=== PATIENT | male | born 1965 | race Two or more races ===

== ENCOUNTER 2023-05-13 08:10 | Inpatient (IN) | payer OTHER, SELFPAY ==
[2023-05-13] VITALS (9 sets, daily range): BP systolic 102–146; BP diastolic 76–119; PULSE 66–158; RESP 18–24; TEMP 36.1–36.3; O2SAT 95–100; BMI 28.4
--- NOTE | 2023-05-13 | ECG_ITS ---
Test Reason : CHEST PAIN Blood Pressure : / mmHG Vent. Rate : 143 BPM Atrial Rate : 000 BPM P-R Int : 000 ms QRS Dur : 084 ms QT Int : 320 ms P-R-T Axes : 000 092 -23 degrees QTc Int : 493 ms Atrial fibrillation with rapid ventricular response Rightward axis Abnormal QRS-T angle, consider primary T wave abnormality Abnormal ECG No previous ECGs available Referred By: Anjelica Hinkle Electronically Signed By:Stanley Perea
--- NOTE | ~2023-05-13 | XR_ITS ---
EXAMINATION: XR CHEST CLINICAL INFORMATION: SOB COMPARISON: None available. TECHNIQUE: Frontal view of the chest was obtained. FINDINGS: The lungs are well-expanded and clear of acute pneumonic process. Heart size is normal. There is mild prominence of pulmonary vascularity question mild congestion. There is moderate spondylosis of dorsal spine. XR/XR chest 1V IMPRESSION: Suspect mild pulmonary vascular congestion.
--- NOTE | 2023-05-13 08:25 | PC.NURSE ---
Addendum entered by Lali Bartlett 05/13/23 09:21: Pt denies any new swelling in legs, no pitting edema noted. Original Note: Pt is coming from home, pt reports chest pains, SOB and cough X2 weeks worsening. Pt reports poor sleep and unable to lay flat at night. Pt does report productive cough with sputum. Denies any fevers, N/V/D, ABD pain. Pt does report daily drinking of beer, 3 beers daily, denies any history of withdrawals. Pt reports CP is substernal, sharp and worsens with breathing, 07/29. Pt denies any resp or cardiac hx. Pt is alert and oriented, breathing slightly elevated and labored, skin dry and warm. Pt noted to be tachycardia, pulse irregular. Pt placed on bedside cardiac montior, afib between 130-170 noted. Provider is at bedside and aware. All other vital signs stable. IV established in right AC 18G and pt medicated per APR.
--- NOTE | 2023-05-13 08:27 | ED.CHESTPAIN ---
HPI - Chest Pain General Chief Complaint: Chest Pain Stated Complaint: Diff breathing Time Seen by Provider: 05/13/23 08:14 Source: patient and family ( spouse) Mode of arrival: ambulatory Limitations: no limitations History of Present Illness HPI narrative: 57-year-old male with past medical history significant for hypertension patient is not taking his medication for the past 10 months, for the past 2 weeks patient been having difficulty breathing with productive cough with yellow sputum, had been evaluated at urgent care last week and was given a coughing medication, patient reports worsening of his symptoms especially at nighttime when he lay flat he had to get quick because of difficulty breathing, patient also been having exertional dyspnea at work especially going up and downstairs, has not notice swelling in the lower extremities. No fever, no chills, no exposure to a sick contact. Never had similar symptoms in the past. Patient is complaining of chest pain that has been intermittent usually when SOB gets worse, pain is confined to the anterior chest area with no radiation worsening by exertion no clear relieving factor. Related Data Allergies Allergy/AdvReac Type Severity Reaction Status Date / Time No Known Allergies Allergy Verified 05/13/23 08:25 Review of Systems Review of Systems: All other systems are reviewed and are negative Constitutional: Reports as per HPI and Reports no additional constitutional complaints Eyes: Reports as per HPI and Reports no additional eye complaints Reports system reviewed and no additional complaints, except as documented Cardiovascular: Reports as per HPI and Reports no additional cardiovascular complaints Respiratory: Reports as per HPI and Reports no additional respiratory complaints Gastrointestinal: Reports as per HPI and Reports no additional gastrointestinal complaints Genitourinary: Reports no additional female genitourinary complaints Musculoskeletal: Reports no additional musculoskeletal complaints Skin/Breast: Reports system reviewed and no additional complaints, except as docu Psychiatric: Reports no additional psychiatric complaints Endocrine: Reports no additional endocrine complaints Hematologic/Lymphatic: Reports no additional hematologic/lymphatic complaints Allergic/Immunologic: Reports no additional allergic/immunologic complaints Reports system reviewed and no additional complaints, except as documented and Reports Abnormal speech present [facility] Social History Social History Smoked in Last 30 Days: No Use of substances other than those prescribed or required for medical reasons: No Advance Directives: No Advance Directives Information Provided: Yes Physical Exam Vital Signs: Vital Signs: Last Vital Signs Temp 96.9 F 05/13/23 08:26 Pulse 90 05/13/23 09:32 Resp 18 05/13/23 09:32 BP 127/86 05/13/23 09:32 Pulse Ox 96 05/13/23 09:32 O2 Del Method Room Air 05/13/23 09:32 BMI result Body Mass Index 28.4 Vital signs have been reviewed and appear to be correct. Blood pressure elevated. rapid heart rate , rapid respiratory rate. Temperature normal. Oxygen saturation normal. Appearance: Alert. Oriented X3. mild acute distress. Head: Normal external exam. Normocephalic. Atraumatic. No Jaramillo signs noted. No raccoon eyes noted Eyes: PERRLA. EOMI. Conjunctiva and sclera normal. Eyelids normal. ENT: TM's Normal. Pharynx normal. Uvula midline. Moist mucous membranes. No trismus noted. No drooling noted. No muffled voice noted. Neck: Normal inspection. Neck supple. FROM. No adenopathy. Thyroid Normal. No meningeal signs. No neck mass noted. CVS: Normal heart rate and rhythm. Heart sound normal. No murmurs noted. Pulses normal throughout. Respiratory: mild respiratory distress. Painless inspiration. Breath sounds normal. bilateral basilar rales, Chest nontender. No accessory muscle usage noted or decreased air movement noted. Abdomen: Soft and nontender. Bowel sounds normal in all 4 quadrants. No distention noted. No organomegaly noted. No visible injury noted. Back: No CVA tenderness. Full range of motion noted. Skin: Skin warm and dry. Normal skin color. Normal skin turgor. No rashes/lesions/lacerations noted. Extremities: No lower extremity edema. Extremities exhibit normal range of motion. Extremities nontender. Neuro: Oriented X 3. Cranial nerve exam: II-XII are grossly intact No motor deficit. No sensory deficit. Reflexes normal. Course Reevaluation(s) Reevaluation #1: 57-year-old male came in with new onset atrial fibrillation with RVR and mild CHF, patient's CHADS2 SCORE IS 2 WHICH IS A MODERATE RISK FOR CVA will consider Eliquis 5 mg p.o.. Patient is on Cardizem drip to control heart rate, nitro paste for mild CHF. Patient overall feels better after rate was controlled. Time: 10:13 Medications Administered Generic Name Dose Route Start Last Admin Trade Name Louis PRN Reason Stop Dose Admin Diltiazem HCl 125 mg/ Sodium 125 mls @ 0 mls/hr 05/13/23 08:45 05/13/23 08:55 Chloride IVCONT 5 mg/hr .Q0M TITI 5 mls/hr Administration Protocol Per Protocol Discontinued Medications Generic Name Dose Route Start Last Admin Trade Name Louis PRN Reason Stop Dose Admin Diltiazem HCl 20 mg 05/13/23 08:31 05/13/23 08:45 Diltiazem Hcl 50 Mg/10 Ml Vial IVPUSH 05/13/23 08:32 20 mg STAT STA Administration Medical Decision Making Differential Diagnosis Differential Diagnoses: The differential diagnosis associated with the presentation includes ( ACS, CHF, dysrhythmia, electrolyte derangement, pneumonia, pneumothorax, pleural effusion, severe anemia, risk for CVA assessment.) Admission/Observation Consideration of admission/observation: Escalation of care including admission/observation considered Consult Healthcare Provider Management of the patient was discussed with: Hospitalist ( Dr. Armando) Lab Data MDM Lab Attestation statement: I reviewed the patient's lab results. 05/13/23 08:40 05/13/23 08:40 Labs: Lab Results 05/13/23 Range/Units 08:40 WBC 5.6 (4.8-10.8) X10*3/uL RBC 5.42 (4.60-5.80) X10*6/uL Hgb 15.8 (14.0-18.0) g/dl Hct 47.0 (42.0-52.0) % MCV 86.7 (80.0-98.0) fL MCH 29.2 (27.0-33.0) pg MCHC 33.6 (31.0-36.0) g/dl RDW 13.3 (11.0-16.0) % Plt Count 205 (160-400) X10*3/uL MPV 11.4 (9.4-12.4) fL Immature Gran % (Auto) 0.4 (0.0-0.4) % Neut % (Auto) 70.9 (45-73) % Lymph % (Auto) 22.4 (20-40) % Whitman % (Auto) 5.0 (2-11) % Eos % (Auto) 0.9 (0-4) % Baso % (Auto) 0.4 (0-2) % Lymph # (Auto) 1.3 (1.2-4.9) X10*3/uL [place]man # (Auto) 0.3 (0.1-1.2) X10*3/uL Eos # (Auto) 0.1 (0.0-0.4) X10*3/uL Baso # (Auto) 0.0 (0.0-0.2) X10*3/uL Abs Immat Gran (auto) 0.02 (0.00-0.03) X10*3/uL Absolute Neuts (auto) 4.0 (2.0-8.3) x10*3/uL Absolute Nucleated RBC 0.000 (0.0-0.012) X10*3/uL Nucleated RBC % (auto) 0.0 (0.0-0.2) /100WBC PT 14.0 H (11.1-13.3) SEC INR 1.2 H (0.9-1.1) D-Dimer High Sensitivty 257 NG/ML Sodium 141 (135-145) mmol/L Potassium 4.0 (3.3-5.1) mmol/L Chloride 109 H (96-108) mmol/L Carbon Dioxide 25 (22-29) mmol/L Anion Gap 11 L (12-20) BUN 15 (9-16) mg/dL Creatinine 0.93 (0.5-1.4) mg/dL Estim Creat Clear Calc 98.0 Estimated GFR > 60 Random Glucose 125 H (60-115) mg/dL Lactic Acid 1.1 (0.5-2.0) mmol/L Calcium 9.3 (8.4-10.2) mg/dL Total Bilirubin 1.1 H (0.0-1.0) mg/dL Direct Bilirubin 0.4 (0.0-0.5) mg/dL AST 51 H (5-37) U/L ALT 78 H (0-40) U/L Alkaline Phosphatase 77 (39-117) U/L Troponin I High Sens 21.0 (<3.5-35.0) ng/L B-Natriuretic Peptide 401 H (<100) pg/mL Total Protein 7.8 (6.5-8.0) g/dL Albumin 4.5 (3.5-5.0) g/dL Lipase 22 (8-78) U/L Influenza Type A (PCR) NEGATIVE (Negative) Influenza Type B (PCR) NEGATIVE (Negative) RSV RNA Qual (PCR) NEGATIVE (Negative) SARS-CoV-2 RNA (RT-PCR) NEGATIVE (Negative) Independent Interpretation I performed an independent interpretation of an: Plain X-Ray ( chest: Mild pulmonary vascular congestion.) Radiology Impression Discussion of test interpretation with radiology: I have reviewed the radiologist's reading. Chronic Conditions Patient?s care impacted by: Hypertension Critical Care Time Critical Care Time Critical Care Time: Yes Total Critical Care Time: 60 Attestation: I spent 60 minutes providing critical care service to the patient, this including time spent at the bedside to evaluate the patient, reassess the patient, monitoring vital signs, review labs, and radiographic studies, counseling the patient/family, discussing the case with consultants, disposition the patient. Discharge Plan Discharge Clinical Impression: Atrial fibrillation with RVR, Congestive heart failure Patient Disposition: Admitted As Inpatient
[2023-05-13] MEDS: dilTIAZem HCL 50 MG/10 ML VIAL 20 MG IVPUSH (08:45)
[2023-05-13 08:49] LABS: MANUAL DIFF FLAG NO
[2023-05-13 08:54] LABS: Basophils Percent Auto 0.4 % (0-2); Eosinophils Absolute Auto 0.1 X10*3/uL (0.0-0.4); Eosinophils Percent Auto 0.9 % (0-4); Hemoglobin 15.8 g/dl (14.0-18.0); Imm Gran Abs Auto 0.02 X10*3/uL (0.00-0.03); Imm Gran Pct Auto 0.4 % (0.0-0.4); Lymphocytes Absolute Auto 1.3 X10*3/uL (1.2-4.9); Lymphocytes Percent Auto 22.4 % (20-40); Mean Corpuscular HGB Conc 33.6 g/dl (31.0-36.0); Mean Corpuscular Hemoglobin 29.2 pg (27.0-33.0); Mean Corpuscular Volume 86.7 fL (80.0-98.0); Mean Platelet Volume 11.4 fL (9.4-12.4); Monocytes Absolute Auto 0.3 X10*3/uL (0.1-1.2); Neutrophils Percent Auto 70.9 % (45-73); Platelet Count 205 X10*3/uL (160-400); Red Blood Count 5.42 X10*6/uL (4.60-5.80); Red Cell Distribution Width 13.3 % (11.0-16.0); White Blood Count 5.6 X10*3/uL (4.8-10.8)
[2023-05-13] MEDS: dilTIAZem HCL 125 MG in 0.9 % Sodium Chloride 100 ML IVCONT (08:55)
--- NOTE | 2023-05-13 08:55 | PC.NURSE ---
Pt started on diltiazem drip per MD Hinkle pt starting at dose rate of 5mg/hr, BPs and HR monitored closely.
[2023-05-13 08:56] LABS: INTERNATIONAL NORM RATIO 1.2 (0.9-1.1)
[2023-05-13 08:58] LABS: D Dimer High Sensitivity 257 NG/ML
[2023-05-13 09:00] LABS: Lactic Acid 1.1 mmol/L (0.5-2.0)
[2023-05-13 09:04] LABS: Alanine Aminotransferase 78 U/L (0-40); Albumin Level 4.5 g/dL (3.5-5.0); Alkaline Phosphatase 77 U/L (39-117); Anion Gap 11 (12-20); Aspartate Amino Transferase 51 U/L (5-37); Bilirubin Direct 0.4 mg/dL (0.0-0.5); Bilirubin Total 1.1 mg/dL (0.0-1.0); Blood Urea Nitrogen 15 mg/dL (9-16); Calcium 9.3 mg/dL (8.4-10.2); Carbon Dioxide 25 mmol/L (22-29); Chloride 109 mmol/L (96-108); Estimated Glomerular Filt Rate > 60; Glucose Random 125 mg/dL (60-115); Lipase 22 U/L (8-78); Sodium 141 mmol/L (135-145); Total Protein 7.8 g/dL (6.5-8.0)
[2023-05-13 09:09] LABS: B Type Natriuretic Peptide 401 pg/mL (<100)
--- NOTE | 2023-05-13 09:20 | PC.NURSE ---
HR noted to improve with diltiazem, BP remains stable. Pt reports he is feeling better, reports this is the first time I have felt better in weeks . Breathing noted to be more regular and unlabored.
[2023-05-13 09:31] LABS: Influenza A PCR NEGATIVE (Negative); Influenza B PCR NEGATIVE (Negative); Resp Syncy Virus RNA Qual PCR NEGATIVE (Negative); SARS COV2 PCR INHOUSE NEGATIVE (Negative)
[2023-05-13] MEDS: Nitroglycerin 2 % Oint 1 GM Packet 0.5 INCH TRANSDERMA (10:17)
[2023-05-13 10:26] LABS: Appearance Urine Clear; Color Urine Yellow; Glucose Urine UA Negative (Negative); Leukocyte Esterase Urine Negative (Negative); Nitrite Urine Negative (Negative); PH 5.5 (5.0-9.0); UMIC TRIGGER UACC YES; Urine Blood Negative (Negative); Urine Ketones Negative (Negative); Urine Protein 30 (1+) mg/dL (Neg-Trace)
[2023-05-13 10:30] LABS: Bacteria Urine None Seen (None Seen); Hyaline Casts Urine 0-2 /LPF (0-2); RBC Urine 0-2 /HPF (0-2); Squamous Epithelial Cell Urine 0-2 /HPF (0-2); WBC Urine 0-5 /HPF (0-5)
--- NOTE | 2023-05-13 11:55 | PM.IMHP ---
History of Present Illness Date of Service: 05/13/23 Attending physician on admission: Pantera Bermudez Chief Complaint: Chest pain, difficulty breathing Pt is a 57-year-old male with a PMH significant for?HTN not taking meds for past year who presents to the ED with?SOB, PITTMAN, and palpitations for the past 2 weeks. Patient also has been experiencing ?chest discomfort? primarily with inspiration; hesitates to call it pain or pressure. Especially notices SOB/PITTMAN with going up stairs. Endorses orthopnea and persistent cough occasionally productive yellowish sputum, as well as subjective fever and chills. Initially suspected he had a pneumonia and presented to an urgent care last week, was sent home with cough medication. Reports regularly follows PCP with yearly visit scheduled for this week. Denies lower leg edema. No nausea, vomiting, abdominal pain. In the ED pt was tachycardic up to 158, tachypneic up to 24, hypertensive up to 146/119, satting at 98% on RA. Labs were significant for BNP 401, AST 51, and ALT 71. Initial troponin 21.0. D-dimer 257. No leukocytosis. Stable H&H. No significant electrolyte abnormalities. Renal function WNL UA negative for UTI. Tested negative for RSV, COVID, flu. CXR showed suspected mild pulmonary vascular congestion. EKG demonstrated AFib with RVR of 143 without evidence of significant ST elevations or depressions. Pt was treated with nitroglycerin transdermal patch, diltiazem 20 mg IV, and placed on a diltiazem drip. Pt will be admitted to the hospital for treatment and further evaluation of new onset AFib with RVR and associated CHF. Review of Systems Review of Systems: SOB, PITTMAN Chest discomfort, palpitations Persistent cough occasionally productive of yellowish sputum Subjective fever and chills Denies nausea, vomiting, abdominal pain PMFSH Medical History (Updated 05/13/23 @ 13:04 by RJ Johansen) HTN (hypertension) Social History Smoked in Last 30 Days: No Use of substances other than those prescribed or required for medical reasons: No Advance Directives: No Advance Directives Information Provided: Yes Meds Allergies Allergy/AdvReac Type Severity Reaction Status Date / Time No Known Allergies Allergy Verified 05/13/23 08:25 Active Medications: Current Medications Diltiazem HCl 125 mg/ Sodium (Chloride) 125 mls @ 0 mls/hr IVCONT .Q0M [facility]; Protocol Last Admin: 05/13/23 08:55 Dose: 5 mg/hr, 5 mls/hr Home Medications Medication Instructions Recorded Confirmed Last Taken Type coenzyme Q10 100 mg capsule 200 mg PO DAILY 05/13/23 05/13/23 Unknown History (CoQ-10) cyanocobalamin (vitamin B-12) 1,000 mcg PO DAILY 05/13/23 05/13/23 Unknown History 1,000 mcg tablet multivitamin 1 tab PO DAILY 05/13/23 05/13/23 Unknown History Physical Exam Vital Signs and Narrative: Vital Signs: Last Vital Signs Temp 96.9 F 05/13/23 08:26 Pulse 102 H 05/13/23 10:17 Resp 18 05/13/23 09:32 BP 119/86 05/13/23 10:17 Pulse Ox 96 05/13/23 09:32 O2 Del Method Room Air 05/13/23 09:32 BMI result Body Mass Index 28.4 Constitutional: Alert, in no acute distress. Mental Status: Oriented to person, place and time. Eyes: Pupils are equal, round, and reactive to light. Ear, Nose, and Throat: Oropharynx clear, mucous membranes moist. Ears and nose without deformities. Trachea midline. Respiratory: Clear to auscultation bilaterally. No wheezing, rales, or rhonchi. Cardiovascular: Irregularly irregular rhythm. No murmurs, rubs, or gallops. Gastrointestinal: Abdomen soft, non-tender, non-distended. Normal bowel sounds. Neurologic: Cranial nerves II-XII are grossly intact bilaterally. No focal neurological deficits. Moves all extremities spontaneously. Skin: Warm, dry. Extremities: No edema. Psychiatric: Normal mood and affect. Results Labs 05/13/23 08:40 05/13/23 08:40 Labs: Laboratory Results - last 24 hr 05/13/23 05/13/23 08:40 10:20 MCV 86.7 MCH 29.2 MCHC 33.6 RDW 13.3 Plt Count 205 MPV 11.4 Immature Gran % (Auto) 0.4 Neut % (Auto) 70.9 Lymph % (Auto) 22.4 Dawes % (Auto) 5.0 Eos % (Auto) 0.9 Baso % (Auto) 0.4 Lymph # (Auto) 1.3 Dawes # (Auto) 0.3 Eos # (Auto) 0.1 Baso # (Auto) 0.0 Abs Immat Gran (auto) 0.02 Absolute Neuts (auto) 4.0 Absolute Nucleated RBC 0.000 Nucleated RBC % (auto) 0.0 PT 14.0 H INR 1.2 H D-Dimer High Sensitivty 257 Anion Gap 11 L Estim Creat Clear Calc 98.0 Estimated GFR > 60 Random Glucose 125 H Lactic Acid 1.1 Calcium 9.3 Total Bilirubin 1.1 H Direct Bilirubin 0.4 AST 51 H ALT 78 H Alkaline Phosphatase 77 Troponin I High Sens 21.0 B-Natriuretic Peptide 401 H Total Protein 7.8 Albumin 4.5 Lipase 22 Urine Color Yellow Urine Appearance Clear Urine pH 5.5 Ur Specific [place] 1.020 Urine Protein 30 (1+) H Urine Glucose (UA) Negative Urine Ketones Negative Urine Blood Negative Urine Nitrite Negative Ur Leukocyte Esterase Negative Urine RBC 0-2 Urine WBC 0-5 Ur Squamous Epith Cells 0-2 Urine Bacteria None Seen Hyaline Casts 0-2 Influenza Type A (PCR) NEGATIVE Influenza Type B (PCR) NEGATIVE RSV RNA Qual (PCR) NEGATIVE SARS-CoV-2 RNA (RT-PCR) NEGATIVE Imaging Radiologist's Impressions: Impressions Chest X-Ray 05/13/23 09:06 IMPRESSION: Suspect mild pulmonary vascular congestion. Assessment and Plan (1) Atrial fibrillation with RVR: Status: Acute (2) Congestive heart failure: Status: Acute Plan Pt is a 57-year-old male with a PMH significant for?HTN not taking meds for past year who presents to the ED with?SOB, PITTMAN, and palpitations for the past 2 weeks. Pt will be admitted to the hospital for treatment and further evaluation of new onset AFib with RVR and associated CHF. New onset AFib with RVR Patient with SOB, PITTMAN, palpitations, chest discomfort x2 weeks EKG showing AFib RVR of 143, HR as high as 156 in ED Given diltiazem 20 mg IV and started on diltiazem drip in ED Will treat with diltiazem 60 mg p.o. q.i.d. Will start on Eliquis 5mg bid for possible cardioversion Cardiology consult Monitor on telemetry New onset CHF Likely secondary to new onset AFib Patient experiencing SOB, PITTMAN, cough, orthopnea, elevated BNP, CXR with mild pulmonary vascular congestion Will treat with Lasix 20 mg IV daily Follow lytes, MG, I/O Daily weights, low-salt diet Echocardiogram Chest discomfort Likely secondary to CHF in the setting of new onset AFib with RVR EKG without significant ischemic changes Patient received nitroglycerin transdermal patch in ED Initial troponin 21.0 Will repeat troponin HTN Currently pt normotensive Monitor BP Full Code Attending:?Dr. Bermudez DVT Prophylaxis: Started on Eliquis Pt will require a hospitalization of at least two nights for treatment of?new onset AFib with RVR and new onset CHF. Patient will require hospitalization as he is currently on a diltiazem drip, and will require treatment with IV diuretics, close monitoring of cardiac function, additional imaging including echocardiogram, and specialist consultation with Cardiology. Quality Stroke Does the patient have a stroke diagnosis?: No VTE Prior VTE?: No VTE Risk Level:: Medical - moderate - high VTE Device Contraindication: Treatment Not Indicated VTE Drug Contraindication: N/A - Med Ordered
--- NOTE | 2023-05-13 12:15 | PHA.MEDREC ---
Pharmacy Consult ? Medication Reconciliation Pharmacy has completed the medication reconciliation. Per patient and spouse, patient stopped taking all Rx medications (Gabapentin, lisinopril, ipratopium) 10 months ago on their own accord.
[2023-05-13] MEDS: dilTIAZem HCL 60 MG TABLET PO ×3 (13:25→20:08)
[2023-05-13] MEDS: Apixaban 5 MG TABLET PO ×2 (13:25→20:08)
[2023-05-13] MEDS: Furosemide 20 MG/2 ML VIAL IVPUSH (13:26)
--- NOTE | 2023-05-13 13:45 | PC.NURSE ---
Pt reports overall feeling better. HR on monitor sustaining in 80s afib, admitting provider notified. Dilt drip D/C as per APR. VSS.
[2023-05-13 13:57] LABS: Troponin-I High Sensitivity 17.8 ng/L (<3.5-35.0)
[2023-05-13 14:11] LABS: Thyroid Stimulating Hormone 1.45 uIU/mL (0.32-4.0)
[2023-05-13] MEDS: 0.9 % Sodium Chloride Flush 3 ML SYRINGE IVFLUSH (17:29)
[2023-05-14] VITALS (7 sets, daily range): BP systolic 101–135; BP diastolic 75–95; PULSE 90–121; RESP 18–20; TEMP 36.1–36.5; O2SAT 96–99
[2023-05-14] MEDS: 0.9 % Sodium Chloride Flush 3 ML SYRINGE IVFLUSH ×4 (00:19→20:27)
--- NOTE | 2023-05-14 07:00 | CA_ITS ---
Transthoracic Echocardiogram Patient (Last, First, Middle): Jim Fletcher, Gender: Male Date of : 1965 Age: 57 Procedure Date: 05/14/2023 Procedure Type: Transthoracic Echocardiogram Location: [facility] Height: 175.26 cm Weight: 87.09 kg BSA: 2.03 m2 Heart Rate: 105 bpm BP: 132 / 90 mmHg Business Support Professional: MARGARITA Referring MD: Pantera Bermudez MD Symptoms: at fib Study Quality: Fair w/Contrast ECG Rhythm: Atrial Fibrillation Conclusions: - Normal left ventricular cavity size. There is mildly increased left ventricular wall thickness. The left ventricular systolic function is severely decreased. The visually estimated ejection fraction is between 20-25%. There is severe global hypokinesis. Diastolic function is indeterminate on the basis of available data. - Mildly increased right ventricular cavity size. There is mild to moderately decreased right ventricular systolic function. - The left atrium is normal in size. The right atrium is moderately dilated. Findings Procedure Information Contrast agent, definity, is being given per protocol without apparent complications. Left Ventricle Normal left ventricular cavity size. There is mildly increased left ventricular wall thickness. The left ventricular systolic function is severely decreased. The visually estimated ejection fraction is between 20 25%. There is severe global hypokinesis. Diastolic function is indeterminate on the basis of available data. Right Ventricle Mildly increased right ventricular cavity size. There is mild to moderately decreased right ventricular systolic function. Atria The left atrium is normal in size. The right atrium is moderately dilated. Aortic Valve Normal aortic valve structure and function. There is no aortic valve stenosis. There is no aortic valve regurgitation. Mitral Valve The mitral valve appears normal. There is no mitral valve regurgitation. There is no mitral valve stenosis. Pulmonic Valve The pulmonic valve is normal. There is trace pulmonic valve regurgitation. Tricuspid Valve Normal tricuspid valve structure. There is trace tricuspid valve regurgitation. Normal right atrial pressure. There is no evidence of pulmonary hypertension. Great Vessels There is mild dilatation of the ascending aorta measuring 3.50 cm. The visualized portions of the pulmonary artery and branches are normal. Venous The inferior vena cava is normal in size and collapses greater than 50% with inspiration. Pericardium/Pleural There is no evidence of pericardial effusion. Prior Study Comparison No prior study available for comparison. Measurements 2D Linear Measurements IVSd: 1.07 0.6-0.9/0.6-1.0 cm LVIDd: 5.26 3.9-5.3/4.2-5.9 cm LVIDd Index: 2.59 2.4-3.2/2.2-3.1 cm/m2 LVIDs: 4.78 2.0-3.6 cm LVPWd: 1.15 0.7-1.1 cm LA Diam: 3.80 2.7-3.8/3.0-4.0 cm LAIDs Index: 1.87 1.5-2.3 cm/m2 LV Mass: 283.90 67-162/88-224 g LV Mass Index: 139.85 43-95/49-115 g/m2 LVOT Diam: 2.10 3.0+(-)1.3 cm 2D Systolic Function EF 4C: 15.30 >55% EF 2C: 30.00 >55% EF BiP: 22.90 >55% Mitral Valve MV Pk E: 1.14 MV Decel Time: 135.00 E'Lateral: 6.89 E'Medial: 6.16 E/E' Med: 18.50 E/E' Lat: 16.50 PHT: 39.00 MVA PHT: 5.64 Decel Sabine: 8.49 Aortic Valve AoV Pk Carlos: 0.81 AoV Mn Carlos: 0.62 AoV VTI: 0.12 AoV Pk Grad: 3.00 Aov Mn Grad: 2.00 SARIAH Cont.VTI: 2.64 LVOT LVOT Pk Carlos: 0.63 LVOT Mn Carlos: 0.47 LVOT VTI: 0.09 LVOT Pk Grad: 2.00 LVOT Mn Grad: 1.00 LVOT Diam: 2.10 LVOT Area: 3.46 Diastolic Function MV Pk E: 1.14 E'Medial: 6.16 E/E' Med: 18.50 E' Laterial: 6.89 E/E' Lat: 16.50 Right Ventricle TAPSE (mm): 14.20 TVS' Carlos: 8.05 Tricuspid Valve TR Pk Carlos: 2.16 TR Pk Grad: 19.00 RA Press: 3.00 RVSP: 22.00 Great Vessels Aorta Sinus of Valsalva: 3.60 2.0-3.5 cm Ao Asc: 3.50 2.1-3.4 cm Pulmonary Valve PV Pk Carlos: 0.62 Peak PV Grad: 2.00 Updated in Other Vendor System with Status of Final Stanley Perea MD electronically signed on 05/15/2023 11:35:15 AM with status of Final
[2023-05-14 07:53] LABS: Anion Gap 12 (12-20); Blood Urea Nitrogen 11 mg/dL (9-16); Calcium 9.1 mg/dL (8.4-10.2); Carbon Dioxide 25 mmol/L (22-29); Chloride 106 mmol/L (96-108); Creatinine Clr Calc Pharmacy 107.3; Estimated Glomerular Filt Rate > 60; Glucose Random 110 mg/dL (60-115); Magnesium 2.1 mg/dL (1.6-2.6); Sodium 139 mmol/L (135-145)
[2023-05-14] MEDS: dilTIAZem HCL 60 MG TABLET PO (08:43)
[2023-05-14] MEDS: Cyanocobalamin (Vitamin B-12) 1,000 MCG TABLET 1000 MCG PO (08:43)
[2023-05-14] MEDS: Furosemide 20 MG/2 ML VIAL IVPUSH (08:43)
[2023-05-14] MEDS: Multivitamin TABLET 1 TAB PO (08:44)
[2023-05-14] MEDS: Apixaban 5 MG TABLET PO ×2 (08:44→20:26)
--- NOTE | 2023-05-14 12:15 | MHC.CM.PN ---
Pt self-care, lives at home with his who will transport him home. HCP completed with pt, now on file. PCP: Dr. Pooja Owen
--- NOTE | 2023-05-14 12:53 | P.CONCA_ITS ---
History of Present Illness History of Present Illness Date of Service: 05/14/23 Requesting physician: Alec Tolliver Chief complaint: afib with rvr, chf Narrative: [age] year gentleman who is presenting with palpitations, chest discomfort and shortness of breath. He is noticed to be in AFib with RVR. He drinks beer almost daily up to 3 beers a day and on weekends a little more than that. He does not drink any hard liquor otherwise. He has been drinking for long time. He started noticing shortness of breath with activities as well as right-sided chest discomfort which he describes as a fluttering sensation/palpitations. He is somewhat vague in his history. This has been ongoing for 2 weeks. In the ER he was noted to be in AFib with RVR. Chest x-ray showed mild congestion. He has been admitted for further management. He has been started on anticoagulation at this point. Labs, imaging and EKG reviewed. [facility] Past Medical History Medical History HTN (hypertension) Social History Social History Household Members: Spouse Housing: House Do you presently have visiting nurse or other home services: No Patient Tobacco Use Status: Never used Tobacco Smoked in Last 30 Days: No Use of substances other than those prescribed or required for medical reasons: No Currently Displaying Signs/Symptoms of Drug Intoxication Withdrawal: No Have you been hit, kicked, punched, or otherwise hurt by someone within the past year? If so, by whom?: No Do you feel safe in your current relationship?: Yes Is there a partner from a previous relationship who is making you feel unsafe now?: No Are you made to feel afraid or neglected: No Advance Directives: No Advance Directives Information Provided: Yes Do you have thoughts of harming others: None Do you have a plan to hurt others: No Plan Recently lost weight without trying: No service: No Meds Allergies Allergy/AdvReac Type Severity Reaction Status Date / Time No Known Allergies Allergy Verified 05/13/23 08:25 Active Medications: Current Medications Acetaminophen (Acetaminophen 325 Mg Tablet) 650 mg PO Q6H PRN PRN Reason: Pain, Mild (Pain Scale 1-3) Apixaban (Apixaban 5 Mg Tablet) 5 mg PO BID [facility] Last Admin: 05/14/23 08:44 Dose: 5 mg Benzonatate (Benzonatate 100 Mg Capsule) 100 mg PO TID PRN PRN Reason: Cough Cyanocobalamin (Cyanocobalamin (Vitamin B-12) 1,000 Mcg Tablet) 1,000 mcg PO DAILY [facility] Last Admin: 05/14/23 08:43 Dose: 1,000 mcg Diltiazem HCl (Diltiazem Hcl 60 Mg Tablet) 60 mg PO QID [facility]; Protocol Last Admin: 05/14/23 08:43 Dose: 60 mg Docusate Sodium (Docusate Sodium 100 Mg Capsule) 100 mg PO DAILY PRN PRN Reason: Constipation Furosemide (Furosemide 20 Mg/2 Ml Vial) 20 mg IVPUSH DAILY [facility]; Protocol Last Admin: 05/14/23 08:43 Dose: 20 mg Melatonin (Melatonin 3 Mg Tablet) 6 mg PO BEDTIME PRN PRN Reason: Insomnia Multivitamins/Vitamin C (Multivitamin Tablet) 1 tab PO DAILY [facility] Last Admin: 05/14/23 08:44 Dose: 1 tab Ondansetron HCl (Ondansetron Hcl 4 Mg/2 Ml Vial) 4 mg IVPUSH Q8H PRN PRN Reason: Nausea and Vomiting Sodium Chloride (0.9 % Sodium Chloride Flush 3 Ml Syringe) 3 ml IVFLUSH QSHIFT [facility] Last Admin: 05/14/23 08:44 Dose: 3 ml Home Medications Medication Instructions Recorded Confirmed Last Taken Type coenzyme Q10 100 mg capsule 200 mg PO DAILY 05/13/23 05/13/23 Unknown History (CoQ-10) cyanocobalamin (vitamin B-12) 1,000 mcg PO DAILY 05/13/23 05/13/23 Unknown History 1,000 mcg tablet multivitamin 1 tab PO DAILY 05/13/23 05/13/23 Unknown History Physical Exam 2 Vital Signs: Vital Signs: Last Vital Signs Temp 97.5 F 05/14/23 11:03 Pulse 97 05/14/23 11:03 Resp 18 05/14/23 11:03 BP 120/89 05/14/23 11:03 Pulse Ox 97 05/14/23 11:03 O2 Del Method Room Air 05/14/23 11:03 BMI result Body Mass Index 28.4 GENERAL APPEARANCE: in no acute distress, pleasant. NECK: no carotid bruit, + jugular venous distention. SKIN: no suspicious lesions, warm and dry. HEART: no murmurs, irregular rate and rhythm. LUNGS: clear to auscultation bilaterally. ABDOMEN: soft, nontender. EXTREMITIES: no edema. PERIPHERAL PULSES: equal. NEUROLOGIC: No gross deficits, AAO X 3 Objective Labs and Meds 05/13/23 08:40 05/14/23 06:42 Lab results: Laboratory Results - last 24 hr 05/13/23 05/14/23 13:25 06:42 Hold Purple Top SEE NOTE Sodium 139 Potassium 4.0 Chloride 106 Carbon Dioxide 25 Anion Gap 12 BUN 11 Creatinine 0.85 Estim Creat Clear Calc 107.3 Estimated GFR > 60 Random Glucose 110 Calcium 9.1 Magnesium 2.1 Troponin I High Sens 17.8 TSH 1.45 Assessment and Plan (1) Congestive heart failure: Status: Acute (2) Atrial fibrillation with RVR: Status: Acute Plan [age] year gentleman presenting with new onset atrial fibrillation, dyspnea and atypical chest pain. Biomarkers are normal. No dynamic EKG changes. Has been getting Cardizem. Due to congestive heart failure I do not want to continue Cardizem currently. Stop the Cardizem. Add metoprolol 25 mg twice a day. Eliquis 5 mg twice a day. Agree with IV diuretics with a goal of up to 1.5 L negative over the next 24 hours. We will check echocardiogram to assess LV function. Given his history of alcoholism, I suspect underlying cardiomyopathy. Please monitor closely for alcohol withdrawal. We will follow along with you. Thank you for allowing me to participate in the care of your patient. Please feel free to contact me if you have any questions. Procedures Date of Service Date of Service: 05/14/23
--- NOTE | 2023-05-14 15:02 | P.PNIM_ITS ---
Subjective Subjective Date of Service: 05/14/23 Interval History: No acute issues overnight. No further chest pain Review of Systems Denies chest pain Denies shortness of breath Denies nausea vomiting diarrhea Denies fever chills Physical Exam 2 Vital Signs: Vital Signs: Last Vital Signs Temp 97.5 F 05/14/23 11:03 Pulse 97 05/14/23 11:03 Resp 18 05/14/23 11:03 BP 120/89 05/14/23 11:03 Pulse Ox 97 05/14/23 11:03 O2 Del Method Room Air 05/14/23 11:03 BMI result Body Mass Index 28.4 Const: Other: Awake alert no acute distress Resp: Other: Clear to auscultation bilaterally no rales rhonchi or wheezes Cardio: Other: No S4; positive S1-S2; no S3 murmurs rubs or gallops GI: Other: Soft nontender nondistended normoactive bowel sounds Extrem: Other: No edema bilaterally Objective Data Active Medications Acetaminophen (Acetaminophen 325 Mg Tablet) 650 mg PO Q6H PRN PRN Reason: Pain, Mild (Pain Scale 1-3) Apixaban (Apixaban 5 Mg Tablet) 5 mg PO BID [facility] Last Admin: 05/14/23 08:44 Dose: 5 mg Documented By: IVORY Benzonatate (Benzonatate 100 Mg Capsule) 100 mg PO TID PRN PRN Reason: Cough Cyanocobalamin (Cyanocobalamin (Vitamin B-12) 1,000 Mcg Tablet) 1,000 mcg PO DAILY [facility] Last Admin: 05/14/23 08:43 Dose: 1,000 mcg Documented By: IVORY Docusate Sodium (Docusate Sodium 100 Mg Capsule) 100 mg PO DAILY PRN PRN Reason: Constipation Furosemide (Furosemide 20 Mg/2 Ml Vial) 20 mg IVPUSH DAILY [facility]; Protocol Last Admin: 05/14/23 08:43 Dose: 20 mg Documented By: IVORY Melatonin (Melatonin 3 Mg Tablet) 6 mg PO BEDTIME PRN PRN Reason: Insomnia Metoprolol Tartrate (Metoprolol Tartrate 25 Mg Tablet) 25 mg PO BID [facility]; Protocol Multivitamins/Vitamin C (Multivitamin Tablet) 1 tab PO DAILY [facility] Last Admin: 05/14/23 08:44 Dose: 1 tab Documented By: IVORY Ondansetron HCl (Ondansetron Hcl 4 Mg/2 Ml Vial) 4 mg IVPUSH Q8H PRN PRN Reason: Nausea and Vomiting Sodium Chloride (0.9 % Sodium Chloride Flush 3 Ml Syringe) 3 ml IVFLUSH QSHIFT [facility] Last Admin: 05/14/23 08:44 Dose: 3 ml Documented By: IVORY Labs 05/13/23 08:40 05/14/23 06:42 Labs: Laboratory Results - last 24 hr 05/14/23 06:42 Hold Purple Top SEE NOTE Anion Gap 12 Estim Creat Clear Calc 107.3 Estimated GFR > 60 Random Glucose 110 Calcium 9.1 Magnesium 2.1 Microbiology Microbiology Results: Microbiology 05/13/23 08:40 Blood Culture - Preliminary Blood - Venous No growth after 24 hours. 05/13/23 08:40 Blood Culture - Preliminary Blood - Venous No growth after 24 hours. Assessment and Plan (1) Atrial fibrillation with RVR: Status: Acute (2) Congestive heart failure: Status: Acute Plan Pt is a 57-year-old male with a PMH significant for?HTN not taking meds for past year who presents to the ED with?SOB, PITTMAN, and palpitations for the past 2 weeks. Pt will be admitted to the hospital for treatment and further evaluation of new onset AFib with RVR and associated CHF. 1.New onset AFib with RVR -seen by Cardiology; Barbara WOOD in favor of metoprolol -continue Eliquis 5mg bid -monitor on telemetry 2.New onset CHF -improved with diuresis -lasix 20 mg IV daily -follow lrenals/divalents -echocardiogram pending 3.HTN -acceptable control on current therapies -adjust as indicated Full Code Eliquis Patient will require ongoing hospitalization for IV diuresis and further workup of new onset congestive heart failure with AFib Quality Stroke Does the patient have a stroke diagnosis?: No VTE Prior VTE?: No VTE Risk Level:: Medical - moderate - high VTE Device Contraindication: Treatment Not Indicated VTE Drug Contraindication: N/A - Med Ordered
[2023-05-14] MEDS: Metoprolol Tartrate 25 MG TABLET PO (20:26)
[2023-05-14] MEDS: Sacubitril/Valsartan 24/26 1 TAB TABLET PO (20:26)
[2023-05-15] VITALS (7 sets, daily range): BP systolic 100–146; BP diastolic 60–91; PULSE 83–124; RESP 16–20; TEMP 36.2–36.7; O2SAT 96–98
[2023-05-15 06:49] LABS: MANUAL DIFF FLAG NO
[2023-05-15 07:16] LABS: Basophils Percent Auto 0.8 % (0-2); Eosinophils Absolute Auto 0.1 X10*3/uL (0.0-0.4); Eosinophils Percent Auto 2.6 % (0-4); Hematocrit 48.2 % (42.0-52.0); Hemoglobin 16.8 g/dl (14.0-18.0); Imm Gran Abs Auto 0.01 X10*3/uL (0.00-0.03); Imm Gran Pct Auto 0.2 % (0.0-0.4); Lymphocytes Absolute Auto 1.4 X10*3/uL (1.2-4.9); Lymphocytes Percent Auto 28.4 % (20-40); Mean Corpuscular HGB Conc 34.9 g/dl (31.0-36.0); Mean Corpuscular Hemoglobin 29.6 pg (27.0-33.0); Mean Platelet Volume 11.3 fL (9.4-12.4); Monocytes Absolute Auto 0.4 X10*3/uL (0.1-1.2); Monocytes Percent Auto 8.5 % (2-11); Neutrophils Percent Auto 59.5 % (45-73); Platelet Count 192 X10*3/uL (160-400); Red Blood Count 5.67 X10*6/uL (4.60-5.80); Red Cell Distribution Width 13.4 % (11.0-16.0)
[2023-05-15 07:38] LABS: Alanine Aminotransferase 60 U/L (0-40); Albumin Level 4.2 g/dL (3.5-5.0); Alkaline Phosphatase 84 U/L (39-117); Anion Gap 14 (12-20); Aspartate Amino Transferase 34 U/L (5-37); Bilirubin Total 0.8 mg/dL (0.0-1.0); Blood Urea Nitrogen 13 mg/dL (9-16); Calcium 9.6 mg/dL (8.4-10.2); Carbon Dioxide 24 mmol/L (22-29); Chloride 107 mmol/L (96-108); Estimated Glomerular Filt Rate > 60; Glucose Fasting 114 mg/dL (60-99); Potassium 3.9 mmol/L (3.3-5.1); Sodium 141 mmol/L (135-145); Total Protein 7.4 g/dL (6.5-8.0)
[2023-05-15] MEDS: Cyanocobalamin (Vitamin B-12) 1,000 MCG TABLET 1000 MCG PO (08:33)
[2023-05-15] MEDS: Multivitamin TABLET 1 TAB PO (08:33)
[2023-05-15] MEDS: Apixaban 5 MG TABLET PO ×2 (08:33→20:07)
[2023-05-15] MEDS: Sacubitril/Valsartan 24/26 1 TAB TABLET PO ×2 (08:33→20:08)
[2023-05-15] MEDS: Furosemide 20 MG/2 ML VIAL IVPUSH (08:34)
[2023-05-15] MEDS: Metoprolol Tartrate 25 MG TABLET PO ×2 (08:34→20:07)
[2023-05-15] MEDS: 0.9 % Sodium Chloride Flush 3 ML SYRINGE IVFLUSH ×2 (08:35→20:08)
--- NOTE | 2023-05-15 11:22 | PM.PNCARD ---
Subjective Subjective Date of Service: 05/15/23 Interval history: Seen examined at bedside. ECHO is showing severe LV dysfunction and [id number] RV dysfunction. Clinically he is feeling better. Physical Exam Vital Signs: Last Vital Signs Temp 97.6 F 05/15/23 10:58 Pulse 83 05/15/23 10:58 Resp 20 05/15/23 10:58 BP 123/85 05/15/23 10:58 Pulse Ox 98 05/15/23 10:58 O2 Del Method Room Air 05/15/23 10:58 BMI result Body Mass Index 28.4 GENERAL APPEARANCE: in no acute distress, pleasant. NECK: no carotid bruit, no jugular venous distention. SKIN: no suspicious lesions, warm and dry. HEART: no murmurs, irregular rate and rhythm. LUNGS: clear to auscultation bilaterally. ABDOMEN: soft, nontender. EXTREMITIES: no edema. PERIPHERAL PULSES: equal. NEUROLOGIC: No gross deficits, AAO X 3 Objective Labs and Meds 05/15/23 06:18 05/15/23 06:18 Lab results: Laboratory Results - last 24 hr 05/15/23 06:18 WBC 5.0 RBC 5.67 Hgb 16.8 Hct 48.2 MCV 85.0 MCH 29.6 MCHC 34.9 RDW 13.4 Plt Count 192 MPV 11.3 Immature Gran % (Auto) 0.2 Neut % (Auto) 59.5 Lymph % (Auto) 28.4 [place] % (Auto) 8.5 Eos % (Auto) 2.6 Baso % (Auto) 0.8 Lymph # (Auto) 1.4 [place] # (Auto) 0.4 Eos # (Auto) 0.1 Baso # (Auto) 0.0 Abs Immat Gran (auto) 0.01 Absolute Neuts (auto) 3.0 Absolute Nucleated RBC 0.000 Nucleated RBC % (auto) 0.0 Sodium 141 Potassium 3.9 Chloride 107 Carbon Dioxide 24 Anion Gap 14 BUN 13 Creatinine 0.76 Estim Creat Clear Calc 120.0 Estimated GFR > 60 Fasting Glucose 114 H Calcium 9.6 Total Bilirubin 0.8 AST 34 ALT 60 H Alkaline Phosphatase 84 Total Protein 7.4 Albumin 4.2 Progress Note: A&P Assessment and plan (1) Congestive heart failure: Status: Acute (2) Atrial fibrillation with RVR: Status: Acute Plan [age] gentleman presenting with new onset congestive heart failure and AFib with RVR. He has background of alcohol use and drinks beer daily. Diuresed and clinically improving. Added Entresto. Adding spironolactone 25 mg daily and empagliflozin 10 mg daily. Discussed with with the patient and in detail about management plan. We will pursue JORDAN cardioversion tomorrow. Please keep him NPO after midnight. Continue Eliquis as before. Thank you for allowing me to participate in the care of your patient. Please feel free to contact me if you have any questions. Time Spent With Patient Time: Total time managing care of this patient today ____ minutes. Progress Note: Quality Stroke Does the patient have a stroke diagnosis?: No Procedures Date of Service Date of Service: 05/15/23
[2023-05-15] MEDS: Spironolactone 25 MG TABLET PO (13:05)
[2023-05-15] MEDS: Empagliflozin 10 MG TABLET PO (13:05)
--- NOTE | 2023-05-15 14:59 | MHC.CM.PN ---
Patient is planned for JORDAN +cardioversion tomorrow. DP home with family support. Patients will provide transportation home.
--- NOTE | 2023-05-15 16:53 | P.PNIM_ITS ---
Subjective Subjective Date of Service: 05/15/23 Interval History: No acute events overnight. Remains in AFib. Echo results noted Review of Systems Denies chest pain Denies shortness of breath Denies nausea vomiting diarrhea Denies fever chills Physical Exam 2 Vital Signs: Vital Signs: Last Vital Signs Temp 97.2 F 05/15/23 15:31 Pulse 87 05/15/23 15:31 Resp 20 05/15/23 15:31 BP 133/86 05/15/23 15:31 Pulse Ox 98 05/15/23 15:31 O2 Del Method Room Air 05/15/23 15:31 BMI result Body Mass Index 28.4 Const: Other: Awake alert no acute distress Resp: Other: Clear to auscultation bilaterally no rales rhonchi or wheezes Cardio: Other: No S4; positive S1-S2; no S3 murmurs rubs or gallops GI: Other: Soft nontender nondistended normoactive bowel sounds Extrem: Other: No edema bilaterally Objective Data Active Medications Acetaminophen (Acetaminophen 325 Mg Tablet) 650 mg PO Q6H PRN PRN Reason: Pain, Mild (Pain Scale 1-3) Apixaban (Apixaban 5 Mg Tablet) 5 mg PO BID [facility] Last Admin: 05/15/23 08:33 Dose: 5 mg Documented By: IVORY Benzonatate (Benzonatate 100 Mg Capsule) 100 mg PO TID PRN PRN Reason: Cough Cyanocobalamin (Cyanocobalamin (Vitamin B-12) 1,000 Mcg Tablet) 1,000 mcg PO DAILY [facility] Last Admin: 05/15/23 08:33 Dose: 1,000 mcg Documented By: IVORY Docusate Sodium (Docusate Sodium 100 Mg Capsule) 100 mg PO DAILY PRN PRN Reason: Constipation Empagliflozin (Empagliflozin 10 Mg Tablet) 10 mg PO DAILY [facility] Last Admin: 05/15/23 13:05 Dose: 10 mg Documented By: IVORY Furosemide (Furosemide 20 Mg/2 Ml Vial) 20 mg IVPUSH DAILY [facility]; Protocol Last Admin: 05/15/23 08:34 Dose: 20 mg Documented By: IVORY Melatonin (Melatonin 3 Mg Tablet) 6 mg PO BEDTIME PRN PRN Reason: Insomnia Metoprolol Tartrate (Metoprolol Tartrate 25 Mg Tablet) 25 mg PO BID [facility]; Protocol Last Admin: 05/15/23 08:34 Dose: 25 mg Documented By: IVORY Multivitamins/Vitamin C (Multivitamin Tablet) 1 tab PO DAILY [facility] Last Admin: 05/15/23 08:33 Dose: 1 tab Documented By: IVORY Ondansetron HCl (Ondansetron Hcl 4 Mg/2 Ml Vial) 4 mg IVPUSH Q8H PRN PRN Reason: Nausea and Vomiting Sacubitril/Valsartan (Sacubitril/Valsartan 1 Tab Tablet) 1 tab PO BID [facility]; Protocol Last Admin: 05/15/23 08:33 Dose: 1 tab Documented By: IVORY Sodium Chloride (0.9 % Sodium Chloride Flush 3 Ml Syringe) 3 ml IVFLUSH QSHIFT [facility] Last Admin: 05/15/23 16:30 Dose: Not Given Documented By: KATLIN Non-Admin Reason: Med already given Spironolactone (Spironolactone 25 Mg Tablet) 25 mg PO DAILY [facility]; Protocol Last Admin: 05/15/23 13:05 Dose: 25 mg Documented By: IVORY Labs 05/15/23 06:18 05/15/23 06:18 Labs: Laboratory Results - last 24 hr 05/15/23 06:18 MCV 85.0 MCH 29.6 MCHC 34.9 RDW 13.4 Plt Count 192 MPV 11.3 Immature Gran % (Auto) 0.2 Neut % (Auto) 59.5 Lymph % (Auto) 28.4 [place] % (Auto) 8.5 Eos % (Auto) 2.6 Baso % (Auto) 0.8 Lymph # (Auto) 1.4 [place] # (Auto) 0.4 Eos # (Auto) 0.1 Baso # (Auto) 0.0 Abs Immat Gran (auto) 0.01 Absolute Neuts (auto) 3.0 Absolute Nucleated RBC 0.000 Nucleated RBC % (auto) 0.0 Anion Gap 14 Estim Creat Clear Calc 120.0 Estimated GFR > 60 Fasting Glucose 114 H Calcium 9.6 Total Bilirubin 0.8 AST 34 ALT 60 H Alkaline Phosphatase 84 Total Protein 7.4 Albumin 4.2 Microbiology Microbiology Results: Microbiology 05/13/23 08:40 Blood Culture - Preliminary Blood - Venous No growth after 48 hours. 05/13/23 08:40 Blood Culture - Preliminary Blood - Venous No growth after 48 hours. Assessment and Plan (1) Atrial fibrillation with RVR: Status: Acute (2) Congestive heart failure: Status: Acute Plan Pt is a 57-year-old male with a PMH significant for?HTN not taking meds for past year who presents to the ED with?SOB, PITTMAN, and palpitations for the past 2 weeks. Pt will be admitted to the hospital for treatment and further evaluation of new onset AFib with RVR and associated CHF. 1.New onset AFib with RVR -seen by Cardiology; Cardizem DC in favor of metoprolol -continue Eliquis 5mg bid -monitor on telemetry -DC cardioversion in a.m.; NPO after midnight 2.New onset CHF -improved with diuresis -lasix 20 mg IV daily -follow lrenals/divalents -echocardiogram noted 3.HTN -acceptable control on current therapies -adjust as indicated Full Code Eliquis Patient will require ongoing hospitalization for IV diuresis and further workup of new onset congestive heart failure with AFib Quality Stroke Does the patient have a stroke diagnosis?: No VTE Prior VTE?: No VTE Risk Level:: Medical - moderate - high VTE Device Contraindication: Treatment Not Indicated VTE Drug Contraindication: N/A - Med Ordered
[2023-05-15] MEDS: Amiodarone HCL 200 MG TABLET 400 MG PO (23:01)
[2023-05-16] VITALS (9 sets, daily range): BP systolic 90–148; BP diastolic 68–100; PULSE 73–128; RESP 16–20; TEMP 36.1–36.8; O2SAT 95–100; BMI 28.4
[2023-05-16 06:41] LABS: MANUAL DIFF FLAG NO
[2023-05-16 07:02] LABS: Basophils Percent Auto 0.6 % (0-2); Eosinophils Absolute Auto 0.1 X10*3/uL (0.0-0.4); Eosinophils Percent Auto 1.8 % (0-4); Hematocrit 52.4 % (42.0-52.0); Hemoglobin 17.7 g/dl (14.0-18.0); Imm Gran Abs Auto 0.02 X10*3/uL (0.00-0.03); Imm Gran Pct Auto 0.3 % (0.0-0.4); Lymphocytes Absolute Auto 1.8 X10*3/uL (1.2-4.9); Mean Corpuscular HGB Conc 33.8 g/dl (31.0-36.0); Mean Corpuscular Hemoglobin 29.1 pg (27.0-33.0); Mean Corpuscular Volume 86.2 fL (80.0-98.0); Mean Platelet Volume 11.4 fL (9.4-12.4); Monocytes Absolute Auto 0.7 X10*3/uL (0.1-1.2); Neutrophils Absolute Auto 4.2 x10*3/uL (2.0-8.3); Neutrophils Percent Auto 61.3 % (45-73); Platelet Count 228 X10*3/uL (160-400); Red Blood Count 6.08 X10*6/uL (4.60-5.80); Red Cell Distribution Width 13.3 % (11.0-16.0); White Blood Count 6.8 X10*3/uL (4.8-10.8)
[2023-05-16 07:12] LABS: Alanine Aminotransferase 61 U/L (0-40); Albumin Level 4.3 g/dL (3.5-5.0); Alkaline Phosphatase 88 U/L (39-117); Anion Gap 13 (12-20); Aspartate Amino Transferase 33 U/L (5-37); Bilirubin Total 0.7 mg/dL (0.0-1.0); Blood Urea Nitrogen 18 mg/dL (9-16); Calcium 9.9 mg/dL (8.4-10.2); Carbon Dioxide 26 mmol/L (22-29); Chloride 106 mmol/L (96-108); Estimated Glomerular Filt Rate > 60; Glucose Fasting 110 mg/dL (60-99); Potassium 4.3 mmol/L (3.3-5.1); Sodium 141 mmol/L (135-145); Total Protein 7.7 g/dL (6.5-8.0)
[2023-05-16] MEDS: Amiodarone HCL 200 MG TABLET 400 MG PO ×2 (08:35→20:13)
[2023-05-16] MEDS: Empagliflozin 10 MG TABLET PO (08:35)
[2023-05-16] MEDS: Cyanocobalamin (Vitamin B-12) 1,000 MCG TABLET 1000 MCG PO (08:36)
[2023-05-16] MEDS: Metoprolol Tartrate 25 MG TABLET PO ×2 (08:36→20:13)
[2023-05-16] MEDS: Apixaban 5 MG TABLET PO ×2 (08:37→20:13)
[2023-05-16] MEDS: Multivitamin TABLET 1 TAB PO (08:37)
[2023-05-16] MEDS: Spironolactone 25 MG TABLET PO (08:37)
[2023-05-16] MEDS: 0.9 % Sodium Chloride Flush 3 ML SYRINGE IVFLUSH ×3 (08:41→20:16)
--- NOTE | 2023-05-16 09:17 | P.PNCA_ITS ---
Subjective Subjective Date of Service: 05/16/23 Interval history: Seen examined at bedside. Fatigue cardioversion today. Physical Exam Vital Signs: Last Vital Signs Temp 96.9 F 05/16/23 07:12 Pulse 80 05/16/23 07:12 Resp 20 05/16/23 07:12 BP 90/69 05/16/23 07:12 Pulse Ox 99 05/16/23 07:12 O2 Del Method Room Air 05/16/23 07:12 BMI result Body Mass Index 28.4 GENERAL APPEARANCE: in no acute distress, pleasant. NECK: no carotid bruit, no jugular venous distention. SKIN: no suspicious lesions, warm and dry. HEART: no murmurs, irregular rate and rhythm. LUNGS: clear to auscultation bilaterally. ABDOMEN: soft, nontender. EXTREMITIES: no edema. PERIPHERAL PULSES: equal. NEUROLOGIC: No gross deficits, AAO X 3 Objective Labs and Meds 05/16/23 06:18 05/16/23 06:18 Lab results: Laboratory Results - last 24 hr 05/16/23 06:18 WBC 6.8 RBC 6.08 H Hgb 17.7 Hct 52.4 H MCV 86.2 MCH 29.1 MCHC 33.8 RDW 13.3 Plt Count 228 MPV 11.4 Immature Gran % (Auto) 0.3 Neut % (Auto) 61.3 Lymph % (Auto) 26.0 [place] % (Auto) 10.0 Eos % (Auto) 1.8 Baso % (Auto) 0.6 Lymph # (Auto) 1.8 [place] # (Auto) 0.7 Eos # (Auto) 0.1 Baso # (Auto) 0.0 Abs Immat Gran (auto) 0.02 Absolute Neuts (auto) 4.2 Absolute Nucleated RBC 0.000 Nucleated RBC % (auto) 0.0 Sodium 141 Potassium 4.3 Chloride 106 Carbon Dioxide 26 Anion Gap 13 BUN 18 H Creatinine 0.96 Estim Creat Clear Calc 95.0 Estimated GFR > 60 Fasting Glucose 110 H Calcium 9.9 Total Bilirubin 0.7 AST 33 ALT 61 H Alkaline Phosphatase 88 Total Protein 7.7 Albumin 4.3 Progress Note: A&P Assessment and plan (1) Congestive heart failure: Status: Acute (2) Atrial fibrillation with RVR: Status: Acute Plan Pleasant 57-year-old gentleman with new diagnosis of congestive heart failure in the setting of AFib. He also has background of alcohol use. ECHO is showing biventricular dysfunction in the severe range. He has been started on guideline directed medical therapy and is improving. Our plan is to do a JORDAN cardioversion today. Thank you for allowing me to participate in the care of your patient. Please feel free to contact me if you have any questions. Time Spent With Patient Time: Total time managing care of this patient today ____ minutes. Progress Note: Quality Stroke Does the patient have a stroke diagnosis?: No Procedures Date of Service Date of Service: 05/16/23
--- NOTE | 2023-05-16 14:02 | P.CONAN_ITS ---
[facility] Active Problems Active Problems: All Active Problems (Updated 05/13/23 @ 13:04 by RJ Johansen) Congestive heart failure (Acute) Atrial fibrillation with RVR (Acute) Past Medical History Medical History HTN (hypertension) Family History Family history of problems with anesthesia: No Surgical History History of Problems with Anesthesia: No Social History Social History Household Members: Spouse Housing: House Do you presently have visiting nurse or other home services: No Patient Tobacco Use Status: Never used Tobacco Smoked in Last 30 Days: No Use of substances other than those prescribed or required for medical reasons: No Currently Displaying Signs/Symptoms of Drug Intoxication Withdrawal: No Have you been hit, kicked, punched, or otherwise hurt by someone within the past year? If so, by whom?: No Do you feel safe in your current relationship?: Yes Is there a partner from a previous relationship who is making you feel unsafe now?: No Are you made to feel afraid or neglected: No Are you DNR?: No Advance Directives: No Advance Directives Information Provided: Yes Do you have thoughts of harming others: None Do you have a plan to hurt others: No Plan Recently lost weight without trying: No service: No Meds Allergies Allergy/AdvReac Type Severity Reaction Status Date / Time No Known Allergies Allergy Verified 05/16/23 13:31 Active Medications: Current Medications Acetaminophen (Acetaminophen 325 Mg Tablet) 650 mg PO Q6H PRN PRN Reason: Pain, Mild (Pain Scale 1-3) Amiodarone HCl (Amiodarone Hcl 200 Mg Tablet) 400 mg PO BID [facility] Last Admin: 05/16/23 08:35 Dose: 400 mg Apixaban (Apixaban 5 Mg Tablet) 5 mg PO BID [facility] Last Admin: 05/16/23 08:37 Dose: 5 mg Benzonatate (Benzonatate 100 Mg Capsule) 100 mg PO TID PRN PRN Reason: Cough Cyanocobalamin (Cyanocobalamin (Vitamin B-12) 1,000 Mcg Tablet) 1,000 mcg PO DAILY [facility] Last Admin: 05/16/23 08:36 Dose: 1,000 mcg Docusate Sodium (Docusate Sodium 100 Mg Capsule) 100 mg PO DAILY PRN PRN Reason: Constipation Empagliflozin (Empagliflozin 10 Mg Tablet) 10 mg PO DAILY [facility] Last Admin: 05/16/23 08:35 Dose: 10 mg Furosemide (Furosemide 20 Mg/2 Ml Vial) 20 mg IVPUSH DAILY [facility]; Protocol Last Admin: 05/16/23 08:38 Dose: Not Given Melatonin (Melatonin 3 Mg Tablet) 6 mg PO BEDTIME PRN PRN Reason: Insomnia Metoprolol Tartrate (Metoprolol Tartrate 25 Mg Tablet) 25 mg PO BID [facility]; Protocol Last Admin: 05/16/23 08:36 Dose: 25 mg Multivitamins/Vitamin C (Multivitamin Tablet) 1 tab PO DAILY [facility] Last Admin: 05/16/23 08:37 Dose: 1 tab Ondansetron HCl (Ondansetron Hcl 4 Mg/2 Ml Vial) 4 mg IVPUSH Q8H PRN PRN Reason: Nausea and Vomiting Sacubitril/Valsartan (Sacubitril/Valsartan 1 Tab Tablet) 1 tab PO BID [facility]; Protocol Last Admin: 05/16/23 08:38 Dose: Not Given Sodium Chloride (0.9 % Sodium Chloride Flush 3 Ml Syringe) [facility] Last Admin: 05/16/23 08:41 Dose: 3 ml Spironolactone (Spironolactone 25 Mg Tablet) 25 mg PO DAILY [facility]; Protocol Last Admin: 05/16/23 08:37 Dose: 25 mg Home Medications Medication Instructions Recorded Confirmed Last Taken Type coenzyme Q10 100 mg capsule 200 mg PO DAILY 05/13/23 05/13/23 Unknown History (CoQ-10) cyanocobalamin (vitamin B-12) 1,000 mcg PO DAILY 05/13/23 05/13/23 Unknown History 1,000 mcg tablet multivitamin 1 tab PO DAILY 05/13/23 05/13/23 Unknown History Exam Height,Weight and Vital Signs: Height 5 ft 9 in Weight 87.1 kg Last Vital Signs Temp 97.5 F 05/16/23 13:40 Pulse 117 H 05/16/23 13:40 Resp 16 05/16/23 13:40 BP 134/100 H 05/16/23 13:40 Pulse Ox 98 05/16/23 13:40 O2 Del Method Room Air 05/16/23 13:40 Pertinent Lab Results Pertinent Lab Results: Laboratory Tests 05/13/23 05/13/23 05/13/23 08:40 10:20 13:25 WBC 5.6 RBC 5.42 Hgb 15.8 Hct 47.0 MCV 86.7 MCH 29.2 MCHC 33.6 RDW 13.3 Plt Count 205 MPV 11.4 Immature Gran % (Auto) 0.4 Neut % (Auto) 70.9 Lymph % (Auto) 22.4 [place] % (Auto) 5.0 Eos % (Auto) 0.9 Baso % (Auto) 0.4 Lymph # (Auto) 1.3 [place] # (Auto) 0.3 Eos # (Auto) 0.1 Baso # (Auto) 0.0 Abs Immat Gran (auto) 0.02 Absolute Neuts (auto) 4.0 Absolute Nucleated RBC 0.000 Nucleated RBC % (auto) 0.0 Hold Purple Top PT 14.0 H INR 1.2 H D-Dimer High Sensitivty 257 Sodium 141 Potassium 4.0 Chloride 109 H Carbon Dioxide 25 Anion Gap 11 L BUN 15 Creatinine 0.93 Estim Creat Clear Calc 98.0 Estimated GFR > 60 Random Glucose 125 H Fasting Glucose Lactic Acid 1.1 Calcium 9.3 Magnesium Total Bilirubin 1.1 H Direct Bilirubin 0.4 AST 51 H ALT 78 H Alkaline Phosphatase 77 Troponin I High Sens 21.0 17.8 B-Natriuretic Peptide 401 H Total Protein 7.8 Albumin 4.5 Lipase 22 TSH 1.45 Urine Color Yellow Urine Appearance Clear Urine pH 5.5 Ur Specific [place] 1.020 Urine Protein 30 (1+) H Urine Glucose (UA) Negative Urine Ketones Negative Urine Blood Negative Urine Nitrite Negative Ur Leukocyte Esterase Negative Urine RBC 0-2 Urine WBC 0-5 Ur Squamous Epith Cells 0-2 Urine Bacteria None Seen Hyaline Casts 0-2 Influenza Type A (PCR) NEGATIVE Influenza Type B (PCR) NEGATIVE RSV RNA Qual (PCR) NEGATIVE SARS-CoV-2 RNA (RT-PCR) NEGATIVE 05/14/23 05/15/23 05/16/23 06:42 06:18 06:18 WBC 5.0 6.8 RBC 5.67 6.08 H Hgb 16.8 17.7 Hct 48.2 52.4 H MCV 85.0 86.2 MCH 29.6 29.1 MCHC 34.9 33.8 RDW 13.4 13.3 Plt Count 192 228 MPV 11.3 11.4 Immature Gran % (Auto) 0.2 0.3 Neut % (Auto) 59.5 61.3 Lymph % (Auto) 28.4 26.0 [place] % (Auto) 8.5 10.0 Eos % (Auto) 2.6 1.8 Baso % (Auto) 0.8 0.6 Lymph # (Auto) 1.4 1.8 [place] # (Auto) 0.4 0.7 Eos # (Auto) 0.1 0.1 Baso # (Auto) 0.0 0.0 Abs Immat Gran (auto) 0.01 0.02 Absolute Neuts (auto) 3.0 4.2 Absolute Nucleated RBC 0.000 0.000 Nucleated RBC % (auto) 0.0 0.0 Hold Purple Top SEE NOTE PT INR D-Dimer High Sensitivty Sodium 139 141 141 Potassium 4.0 3.9 4.3 Chloride 106 107 106 Carbon Dioxide 25 24 26 Anion Gap 12 14 13 BUN 11 13 18 H Creatinine 0.85 0.76 0.96 Estim Creat Clear Calc 107.3 120.0 95.0 Estimated GFR > 60 > 60 > 60 Random Glucose 110 Fasting Glucose 114 H 110 H Lactic Acid Calcium 9.1 9.6 9.9 Magnesium 2.1 Total Bilirubin 0.8 0.7 Direct Bilirubin AST 34 33 ALT 60 H 61 H Alkaline Phosphatase 84 88 Troponin I High Sens B-Natriuretic Peptide Total Protein 7.4 7.7 Albumin 4.2 4.3 Lipase TSH Urine Color Urine Appearance Urine pH Ur Specific [place] Urine Protein Urine Glucose (UA) Urine Ketones Urine Blood Urine Nitrite Ur Leukocyte Esterase Urine RBC Urine WBC Ur Squamous Epith Cells Urine Bacteria Hyaline Casts Influenza Type A (PCR) Influenza Type B (PCR) RSV RNA Qual (PCR) SARS-CoV-2 RNA (RT-PCR) Airway Mallampati Class: II TM Dist: >3cm Neck ROM: Full Heart: irreg Lungs: cta Assessment and Plan Assessment Anesthesia Assessment: Anesthesia Plan Discussed and Chart Reviewed Final Anesthetic Review Family History of Problems with Anesthesia: No History of Problems with Anesthesia: No NPO: Yes ASA Class: III Final Preanesthetic Review: No Changes in Pt Med Stat, Meds/Allgs Chart Reviewed and Consent Obtained/Reviewed Patient Risk: Intermediate Procedure Risk: Intermediate Anesthetic Plan Anesthetic Plan: MAC: Disposition: Standard PACU
--- NOTE | 2023-05-16 14:34 | HO.PM.IMPN ---
Subjective Subjective Date of Service: 05/16/23 Interval History: AF in 100s-110s, denies palpitations or lightheadedness, denies chest pain, denies dyspnea Review of Systems Review of Systems: Yes all other systems are reviewed and are negative Physical Exam Vital Signs: Vital Signs: Last Vital Signs Temp 97.5 F 05/16/23 13:40 Pulse 117 H 05/16/23 13:40 Resp 16 05/16/23 13:40 BP 134/100 H 05/16/23 13:40 Pulse Ox 98 05/16/23 13:40 O2 Del Method Room Air 05/16/23 13:40 BMI result Body Mass Index 28.4 Gen: in no acute distress HEENT: sclera anicteric, moist mucus membranes Neck: supple Lungs: clear to auscultation bilaterally Heart: rapid, irregular, no murmurs Abd: soft, non-tender, non-distended Ext: no edema Skin: warm/well-perfused Neuro: alert and oriented x3, no focal findings Psych: appropriate affect Objective Data Active Medications Acetaminophen (Acetaminophen 325 Mg Tablet) 650 mg PO Q6H PRN PRN Reason: Pain, Mild (Pain Scale 1-3) Amiodarone HCl (Amiodarone Hcl 200 Mg Tablet) 400 mg PO BID [facility] Last Admin: 05/16/23 08:35 Dose: 400 mg Documented By: ERIKA Apixaban (Apixaban 5 Mg Tablet) 5 mg PO BID [facility] Last Admin: 05/16/23 08:37 Dose: 5 mg Documented By: ERIKA Benzonatate (Benzonatate 100 Mg Capsule) 100 mg PO TID PRN PRN Reason: Cough Cyanocobalamin (Cyanocobalamin (Vitamin B-12) 1,000 Mcg Tablet) 1,000 mcg PO DAILY [facility] Last Admin: 05/16/23 08:36 Dose: 1,000 mcg Documented By: ERIKA Docusate Sodium (Docusate Sodium 100 Mg Capsule) 100 mg PO DAILY PRN PRN Reason: Constipation Empagliflozin (Empagliflozin 10 Mg Tablet) 10 mg PO DAILY [facility] Last Admin: 05/16/23 08:35 Dose: 10 mg Documented By: ERIKA Furosemide (Furosemide 20 Mg/2 Ml Vial) 20 mg IVPUSH DAILY [facility]; Protocol Last Admin: 05/16/23 08:38 Dose: Not Given Documented By: ERIKA Non-Admin Reason: Physician Approved Melatonin (Melatonin 3 Mg Tablet) 6 mg PO BEDTIME PRN PRN Reason: Insomnia Metoprolol Tartrate (Metoprolol Tartrate 25 Mg Tablet) 25 mg PO BID [facility]; Protocol Last Admin: 05/16/23 08:36 Dose: 25 mg Documented By: ERIKA Multivitamins/Vitamin C (Multivitamin Tablet) 1 tab PO DAILY [facility] Last Admin: 05/16/23 08:37 Dose: 1 tab Documented By: ERIKA Ondansetron HCl (Ondansetron Hcl 4 Mg/2 Ml Vial) 4 mg IVPUSH Q8H PRN PRN Reason: Nausea and Vomiting Sacubitril/Valsartan (Sacubitril/Valsartan 1 Tab Tablet) 1 tab PO BID [facility]; Protocol Last Admin: 05/16/23 08:38 Dose: Not Given Documented By: ERIKA Non-Admin Reason: Physician Approved Sodium Chloride (0.9 % Sodium Chloride Flush 3 Ml [facility]ringe) [facility] Last Admin: 05/16/23 08:41 Dose: 3 ml Documented By: ERIKA Spironolactone (Spironolactone 25 Mg Tablet) 25 mg PO DAILY [facility]; Protocol Last Admin: 05/16/23 08:37 Dose: 25 mg Documented By: ERIKA Labs 05/16/23 06:18 05/16/23 06:18 Labs: Laboratory Results - last 24 hr 05/16/23 06:18 MCV 86.2 MCH 29.1 MCHC 33.8 RDW 13.3 Plt Count 228 MPV 11.4 Immature Gran % (Auto) 0.3 Neut % (Auto) 61.3 Lymph % (Auto) 26.0 [place] % (Auto) 10.0 Eos % (Auto) 1.8 Baso % (Auto) 0.6 Lymph # (Auto) 1.8 [place] # (Auto) 0.7 Eos # (Auto) 0.1 Baso # (Auto) 0.0 Abs Immat Gran (auto) 0.02 Absolute Neuts (auto) 4.2 Absolute Nucleated RBC 0.000 Nucleated RBC % (auto) 0.0 Anion Gap 13 Estim Creat Clear Calc 95.0 Estimated GFR > 60 Fasting Glucose 110 H Calcium 9.9 Total Bilirubin 0.7 AST 33 ALT 61 H Alkaline Phosphatase 88 Total Protein 7.7 Albumin 4.3 Microbiology Microbiology Results: Microbiology 05/13/23 08:40 Blood Culture - Preliminary Blood - Venous No growth after 48 hours. 05/13/23 08:40 Blood Culture - Preliminary Blood - Venous No growth after 48 hours. Assessment and Plan (1) Atrial fibrillation with RVR: Status: Acute (2) Congestive heart failure: Status: Acute Plan d4 57yo M with HTN not on medications for past yr presenting with 2 wk of exertional dyspnea + palpitations, found to have new-onset AF/RVR and HFrEF AF/RVR - JORDAN-guided cardioversion today, NPO - continue metoprolol tartrate, amiodarone - apixaban acute HFrEF HTN - TTE 05/14/23: - Normal left ventricular cavity size. There is mildly increased left ventricular wall thickness. The left ventricular systolic function is severely decreased. The visually estimated ejection fraction is between 20-25%. There is severe global hypokinesis. Diastolic function is indeterminate on the basis of available data. - Mildly increased right ventricular cavity size. There is mild to moderately decreased right ventricular systolic function. - The left atrium is normal in size. The right atrium is moderately dilated - continue IV furosemide, metoprolol tartrate, Entresto, spironolactone, empaglifozin VTE ppx - apixaban dispo - anticipate home eventually In my clinical judgment, the patient requires continued inpatient hospitalization for the following reasons: IV diuresis + DC cardioversion Total time managing care of this patient today: 35 minutes. Quality Stroke Does the patient have a stroke diagnosis?: No VTE Prior VTE?: No VTE Risk Level:: Medical - moderate - high VTE Device Contraindication: Treatment Not Indicated VTE Drug Contraindication: N/A - Med Ordered
--- NOTE | 2023-05-16 14:41 | MHC.SHP ---
Pre-Procedural Eval Section A - 24 Hr Update-Section A only Date of Service: 05/16/23 The patient is an INPATIENT: Yes The patient has been examined within 24 hours of the surgical procedure. The History & Physical has been completed within 30 days and I have reviewed it.: Yes Section B - Complete if H&P > 30 days Chief Complaint: afib with rvr, chf Allergies: Allergies Allergy/AdvReac Type Severity Reaction Status Date / Time No Known Allergies Allergy Verified 05/16/23 13:31 Plan Diagnosis/Plan: Unchanged I have reviewed the history and physical and performed a pertinent physical examination on my patient. No changes have occurred unless specified. Time Spent With Patient Time: Total time managing care of this patient today ____ minutes.
--- NOTE | 2023-05-16 15:00 | CA_ITS ---
Transesophageal Echocardiogram Patient (Last, First, Middle): Jim Fletcher, Gender: Male Date of : 1965 Age: 57 Procedure Date: 05/16/2023 Procedure Type: Transesophageal Echocardiogram [place] [facility] [place] Height: 175.26 cm Weight: kg Test Tube Maker: EDWARDO Referring MD: Stanley Perea MD Mold Yard Worker: Stanley Perea MD Symptoms: Afib Conclusion: ??? Mildly increased left ventricular cavity size. The left ventricular systolic function is severely decreased. The visually estimated ejection fraction is between 15-20%. ??? Normal right ventricular cavity size. There is mildly decreased right ventricular systolic function ??? There is no evidence of a thrombus in the left atrial appendage. Findings Procedure Information Contrast agent, definity, is being given per protocol without apparent complications. Left Ventricle Mildly increased left ventricular cavity size. The left ventricular systolic function is severely decreased. The visually estimated ejection fraction is between 15-20%. Diastolic function is indeterminate on the basis of available data. Right Ventricle Normal right ventricular cavity size. There is mildly decreased right ventricular systolic function. Atria There is no evidence of a thrombus in the left atrial appendage. Aortic Valve Normal aortic valve structure and function. Mitral Valve Normal mitral valve structure and function. There is trace mitral valve regurgitation. Pulmonic Valve The pulmonic valve is likely normal. Tricuspid Valve Normal tricuspid valve structure and function. There is trace tricuspid valve regurgitation. Great Vessels All visible segments of the aorta are normal in size. Pericardium/Pleural There is no evidence of pericardial effusion. Updated by Stanley Perea on 08:49 PM with Status of Final Stanley Perea MD electronically signed on 05/16/2023 8:49:53 PM with status of Final
[2023-05-16] MEDS: Acetaminophen 325 MG TABLET 650 MG PO (20:13)
[2023-05-16] MEDS: Sacubitril/Valsartan 24/26 1 TAB TABLET PO (20:13)
--- NOTE | 2023-05-16 20:51 | HO.CARDIVERS ---
Cardioversion Procedure Note Cardioversion Date of Procedure: 05/15/22 Ordering Provider: Stanley Perea Performing Provider: Stanley Perea Indication for Procedure: Afib, CHF Performed with Transesophageal Echo: Yes JORDAN findings (if JORDAN Performed): no JANELLE thrombus History: Afib and CHF Consent: Verbal and Written consent was obtained from the patient before starting. The patient was made aware of the risk of stroke, arrhythmia, skin burn and failure. Procedure: After consent obtained, defib pads were attached and the patient was sedated by the anesthesia team. Once adequate sedation achieved, 200 J synchronized shock was given which converted the rhythm to sinus but within a minute he converted to Afib again. We tried again x 2 with brief success. We decided to conclude the procedure, load with amiodarone and try in few weeks. Complications: None Recommendations: Continue Apixaban. Amiodarone loading. Retry cardioversion in 3-4 weeks.
[2023-05-17 04:00] VITALS: BP 110/63; PULSE 85; RESP 19; TEMP 36.3; O2SAT 99
[2023-05-17 06:59] LABS: MANUAL DIFF FLAG NO
[2023-05-17 07:15] LABS: Basophils Percent Auto 0.7 % (0-2); Eosinophils Absolute Auto 0.1 X10*3/uL (0.0-0.4); Eosinophils Percent Auto 1.9 % (0-4); Hematocrit 52.1 % (42.0-52.0); Hemoglobin 17.7 g/dl (14.0-18.0); Imm Gran Abs Auto 0.02 X10*3/uL (0.00-0.03); Imm Gran Pct Auto 0.3 % (0.0-0.4); Lymphocytes Absolute Auto 1.7 X10*3/uL (1.2-4.9); Lymphocytes Percent Auto 29.7 % (20-40); Mean Corpuscular Hemoglobin 29.6 pg (27.0-33.0); Mean Corpuscular Volume 87.3 fL (80.0-98.0); Mean Platelet Volume 11.4 fL (9.4-12.4); Monocytes Absolute Auto 0.5 X10*3/uL (0.1-1.2); Monocytes Percent Auto 8.6 % (2-11); Neutrophils Absolute Auto 3.4 x10*3/uL (2.0-8.3); Neutrophils Percent Auto 58.8 % (45-73); Platelet Count 216 X10*3/uL (160-400); Red Blood Count 5.97 X10*6/uL (4.60-5.80); Red Cell Distribution Width 13.5 % (11.0-16.0); White Blood Count 5.8 X10*3/uL (4.8-10.8)
[2023-05-17 07:16] LABS: Alanine Aminotransferase 53 U/L (0-40); Albumin Level 4.3 g/dL (3.5-5.0); Alkaline Phosphatase 84 U/L (39-117); Anion Gap 15 (12-20); Aspartate Amino Transferase 36 U/L (5-37); Blood Urea Nitrogen 15 mg/dL (9-16); Calcium 9.7 mg/dL (8.4-10.2); Carbon Dioxide 26 mmol/L (22-29); Chloride 103 mmol/L (96-108); Estimated Glomerular Filt Rate > 60; Glucose Fasting 109 mg/dL (60-99); Magnesium 2.1 mg/dL (1.6-2.6); Potassium 4.4 mmol/L (3.3-5.1); Sodium 140 mmol/L (135-145); Total Protein 7.5 g/dL (6.5-8.0)
[2023-05-17 07:17] LABS: B Type Natriuretic Peptide 234 pg/mL (<100)
[2023-05-17 07:22] VITALS: BP 97/85; PULSE 95; RESP 18; TEMP 35.9; O2SAT 100
[2023-05-17] MEDS: Apixaban 5 MG TABLET PO (09:50)
[2023-05-17] MEDS: Multivitamin TABLET 1 TAB PO (09:50)
[2023-05-17] MEDS: Furosemide 20 MG/2 ML VIAL IVPUSH (09:50)
[2023-05-17] MEDS: Cyanocobalamin (Vitamin B-12) 1,000 MCG TABLET 1000 MCG PO (09:51)
[2023-05-17] MEDS: Spironolactone 25 MG TABLET PO (09:51)
[2023-05-17] MEDS: Metoprolol Tartrate 25 MG TABLET PO (09:51)
[2023-05-17] MEDS: Amiodarone HCL 200 MG TABLET 400 MG PO (09:51)
[2023-05-17] MEDS: Sacubitril/Valsartan 24/26 1 TAB TABLET PO (09:51)
[2023-05-17] MEDS: 0.9 % Sodium Chloride Flush 3 ML SYRINGE IVFLUSH (09:59)
[2023-05-17 11:15] VITALS: BP 99/72; PULSE 92; RESP 18; TEMP 35.9; O2SAT 99
[2023-05-17] MEDS: Empagliflozin 10 MG TABLET PO (11:33)
--- NOTE | 2023-05-17 11:38 | PM.PNCARD ---
Subjective Subjective Date of Service: 05/17/23 Interval history: Seen examined at bedside. Feeling good. He underwent cardioversion but it was unsuccessful because he reverted back to sinus rhythm. Our plan is to loading with amiodarone and retry in few weeks. Physical Exam Vital Signs: Last Vital Signs Temp 96.6 F L 05/17/23 11:15 Pulse 92 05/17/23 11:15 Resp 18 05/17/23 11:15 BP 81/62 L 05/17/23 11:15 Pulse Ox 99 05/17/23 11:15 O2 Del Method Room Air 05/17/23 11:15 O2 Flow Rate 6 05/16/23 15:50 BMI result Body Mass Index 28.4 GENERAL APPEARANCE: in no acute distress, pleasant. NECK: no carotid bruit, no jugular venous distention. SKIN: no suspicious lesions, warm and dry. HEART: no murmurs, irregular rate and rhythm. LUNGS: clear to auscultation bilaterally. ABDOMEN: soft, nontender. EXTREMITIES: no edema. PERIPHERAL PULSES: equal. NEUROLOGIC: No gross deficits, AAO X 3 Objective Labs and Meds 05/17/23 06:23 05/17/23 06:23 Lab results: Laboratory Results - last 24 hr 05/17/23 06:23 WBC 5.8 RBC 5.97 H Hgb 17.7 Hct 52.1 H MCV 87.3 MCH 29.6 MCHC 34.0 RDW 13.5 Plt Count 216 MPV 11.4 Immature Gran % (Auto) 0.3 Neut % (Auto) 58.8 Lymph % (Auto) 29.7 [place] % (Auto) 8.6 Eos % (Auto) 1.9 Baso % (Auto) 0.7 Lymph # (Auto) 1.7 [place] # (Auto) 0.5 Eos # (Auto) 0.1 Baso # (Auto) 0.0 Abs Immat Gran (auto) 0.02 Absolute Neuts (auto) 3.4 Absolute Nucleated RBC 0.000 Nucleated RBC % (auto) 0.0 Sodium 140 Potassium 4.4 Chloride 103 Carbon Dioxide 26 Anion Gap 15 BUN 15 Creatinine 0.96 Estim Creat Clear Calc 95.0 Estimated GFR > 60 Fasting Glucose 109 H Calcium 9.7 Magnesium 2.1 Total Bilirubin 1.0 AST 36 ALT 53 H Alkaline Phosphatase 84 B-Natriuretic Peptide 234 H Total Protein 7.5 Albumin 4.3 Progress Note: A&P Assessment and plan (1) Congestive heart failure: Status: Acute (2) Atrial fibrillation with RVR: Status: Acute (3) Cardiomyopathy: Status: Acute Plan 57 gentleman with new diagnosis of severe biventricular dysfunction and atrial fibrillation. He has background of alcohol use. He was diuresed and clinically improved. We attempted cardioversion yesterday but it was unsuccessful. He is being loaded with amiodarone at this point. Changing metoprolol tartrate to succinate 25 mg daily. Continue amiodarone load 400 mg twice a day for 2 weeks total and then 200 mg daily. He should be on Entresto and spironolactone. He is also on Jardiance. I have advised the to check the cost of medications and if there is any concerns about prior authorization then our office can be reached. He has been on IV diuretics and his blood pressure check later in the day was 81/62. He can get gentle IV fluids if required. Thank you for allowing me to participate in the care of your patient. Please feel free to contact me if you have any questions. Time Spent With Patient Time: Total time managing care of this patient today ____ minutes. Progress Note: Quality Stroke Does the patient have a stroke diagnosis?: No Procedures Date of Service Date of Service: 05/17/23
--- NOTE | 2023-05-17 14:25 | P.DS_ITS ---
DS: Providers Provider Date of Service: 05/17/23 Date of admission: 05/13/23 12:44 Date of discharge: 05/17/23 Primary care physician: Pooja Owen MD Consults: 05/13/23 12:38 Consult to Cardiology Routine Consulting Provider: Elvis iWlliamson Reason for consultation: new nset at fib/chf DS: Diagnosis Discharge Diagnosis (1) Atrial fibrillation with RVR: Status: Acute (2) Cardiomyopathy: Status: Acute (3) Acute HFrEF (heart failure with reduced ejection fraction): Status: Acute DS: Summary Hospital Course Hospital Course: From the history and physical by the admitting hospitalist, RJ Canales, 05/13/23: Pt is a 57-year-old male with a PMH significant for?HTN not taking meds for past year who presents to the ED with?SOB, PITTMAN, and palpitations for the past 2 weeks. Patient also has been experiencing ?chest discomfort? primarily with inspiration; hesitates to call it pain or pressure. Especially notices SOB/PITTMAN with going up stairs. Endorses orthopnea and persistent cough occasionally productive yellowish sputum, as well as subjective fever and chills. Initially suspected he had a pneumonia and presented to an urgent care last week, was sent home with cough medication. Reports regularly follows PCP with yearly visit scheduled for this week. Denies lower leg edema. No nausea, vomiting, abdominal pain. In the ED pt was tachycardic up to 158, tachypneic up to 24, hypertensive up to 146/119, satting at 98% on RA. Labs were significant for BNP 401, AST 51, and ALT 71. Initial troponin 21.0. D-dimer 257. No leukocytosis. Stable H&H. No significant electrolyte abnormalities. Renal function WNL UA negative for UTI. Tested negative for RSV, COVID, flu. CXR showed suspected mild pulmonary vascular congestion. EKG demonstrated AFib with RVR of 143 without evidence of significant ST elevations or depressions. Pt was treated with nitroglycerin tr ansdermal patch, diltiazem 20 mg IV, and placed on a diltiazem drip. Pt will be admitted to the hospital for treatment and further evaluation of new onset AFib with RVR and associated CHF. 57yo M with HTN not on medications for past yr presenting with 2 wk of exertional dyspnea + palpitations, found to have new-onset AF/RVR and HFrEF for which he was admitted to the telemetry unit. He was placed on metoprolol for rate control and apixaban for anticoagulation. Cardiology was consulted. JORDAN- guided cardioversion was attempted 05/16/23 but unsuccessful. He was placed on oral amiodarone load and plan will be to try to cardiovert again in a few weeks as an outpatient. As for CHF, he was found to have severe global hypokinesis with severely reduced EF of 20%. He was diuresed with IV furosemide. He was started on metoprolol, Entresto, spironolactone, and empagliflozin. He was discharged home once euvolemic. He will need close Cardiology follow-up. He was advised to avoid alcohol. Time Attestation Discharge Coordination Time (in mins): 35 Quality: Safe Use of Opioids Does Pt have an Active Cancer Diagnosis on the Problem List?: No Quality: Stroke Does the patient have a stroke diagnosis?: No Physical Exam Vital Signs: Vital Signs: Last Vital Signs Temp 96.6 F L 05/17/23 11:15 Pulse 92 05/17/23 11:15 Resp 18 05/17/23 11:15 BP 99/72 05/17/23 11:15 Pulse Ox 99 05/17/23 11:15 O2 Del Method Room Air 05/17/23 11:15 O2 Flow Rate 6 05/16/23 15:50 BMI result Body Mass Index 28.4 Gen: in no acute distress HEENT: sclera anicteric, moist mucus membranes Neck: supple Lungs: clear to auscultation bilaterally Heart: iirregular, no murmurs Abd: soft, non-tender, non-distended Ext: no edema Skin: warm/well-perfused Neuro: alert and oriented x3, no focal findings Psych: appropriate affect DS: Data Data Completed and Pending Completed studies during hospitalization [Text1]: Laboratory Results WBC 5.8 X10*3/uL (4.8-10.8) 05/17/23 06:23 RBC 5.97 X10*6/uL (4.60-5.80) H 05/17/23 06:23 Hgb 17.7 g/dl (14.0-18.0) 05/17/23 06:23 Hct 52.1 % (42.0-52.0) H 05/17/23 06:23 MCV 87.3 fL (80.0-98.0) 05/17/23 06:23 MCH 29.6 pg (27.0-33.0) 05/17/23 06:23 MCHC 34.0 g/dl (31.0-36.0) 05/17/23 06:23 RDW 13.5 % (11.0-16.0) 05/17/23 06:23 Plt Count 216 X10*3/uL (160-400) 05/17/23 06:23 MPV 11.4 fL (9.4-12.4) 05/17/23 06:23 Immature Gran % (Auto) 0.3 % (0.0-0.4) 05/17/23 06:23 Neut % (Auto) 58.8 % (45-73) 05/17/23 06:23 Lymph % (Auto) 29.7 % (20-40) 05/17/23 06:23 [place] % (Auto) 8.6 % (2-11) 05/17/23 06:23 Eos % (Auto) 1.9 % (0-4) 05/17/23 06:23 Baso % (Auto) 0.7 % (0-2) 05/17/23 06:23 Lymph # (Auto) 1.7 X10*3/uL (1.2-4.9) 05/17/23 06:23 [place] # (Auto) 0.5 X10*3/uL (0.1-1.2) 05/17/23 06:23 Eos # (Auto) 0.1 X10*3/uL (0.0-0.4) 05/17/23 06:23 Baso # (Auto) 0.0 X10*3/uL (0.0-0.2) 05/17/23 06:23 Abs Immat Gran (auto) 0.02 X10*3/uL (0.00-0.03) 05/17/23 06:23 Absolute Neuts (auto) 3.4 x10*3/uL (2.0-8.3) 05/17/23 06:23 Absolute Nucleated RBC 0.000 X10*3/uL (0.0-0.012) 05/17/23 06:23 Nucleated RBC % (auto) 0.0 /100WBC (0.0-0.2) 05/17/23 06:23 Hold Purple Top SEE NOTE 05/14/23 06:42 PT 14.0 SEC (11.1-13.3) H 05/13/23 08:40 INR 1.2 (0.9-1.1) H 05/13/23 08:40 D-Dimer High Sensitivty 257 NG/ML 05/13/23 08:40 Sodium 140 mmol/L (135-145) 05/17/23 06:23 Potassium 4.4 mmol/L (3.3-5.1) 05/17/23 06:23 Chloride 103 mmol/L (96-108) 05/17/23 06:23 Carbon Dioxide 26 mmol/L (22-29) 05/17/23 06:23 Anion Gap 15 (12-20) 05/17/23 06:23 BUN 15 mg/dL (9-16) 05/17/23 06:23 Creatinine 0.96 mg/dL (0.5-1.4) 05/17/23 06:23 Estim Creat Clear Calc 95.0 05/17/23 06:23 Estimated GFR > 60 05/17/23 06:23 Random Glucose 110 mg/dL (60-115) 05/14/23 06:42 Fasting Glucose 109 mg/dL (60-99) H 05/17/23 06:23 Lactic Acid 1.1 mmol/L (0.5-2.0) 05/13/23 08:40 Calcium 9.7 mg/dL (8.4-10.2) 05/17/23 06:23 Magnesium 2.1 mg/dL (1.6-2.6) 05/17/23 06:23 Total Bilirubin 1.0 mg/dL (0.0-1.0) 05/17/23 06:23 Direct Bilirubin 0.4 mg/dL (0.0-0.5) 05/13/23 08:40 AST 36 U/L (5-37) 05/17/23 06:23 ALT 53 U/L (0-40) H 05/17/23 06:23 Alkaline Phosphatase 84 U/L (39-117) 05/17/23 06:23 Troponin I High Sens 17.8 ng/L (<3.5-35.0) 05/13/23 13:25 B-Natriuretic Peptide 234 pg/mL (<100) H 05/17/23 06:23 Total Protein 7.5 g/dL (6.5-8.0) 05/17/23 06:23 Albumin 4.3 g/dL (3.5-5.0) 05/17/23 06:23 Lipase 22 U/L (8-78) 05/13/23 08:40 TSH 1.45 uIU/mL (0.32-4.0) 05/13/23 13:25 Urine Color Yellow 05/13/23 10:20 Urine Appearance Clear 05/13/23 10:20 Urine pH 5.5 (5.0-9.0) 05/13/23 10:20 Ur Specific [place] 1.020 (1.005-1.025) 05/13/23 10:20 Urine Protein 30 (1+) mg/dL (Neg-Trace) H 05/13/23 10:20 Urine Glucose (UA) Negative mg/dL (Negative) 05/13/23 10:20 Urine Ketones Negative mg/dL (Negative) 05/13/23 10:20 Urine Blood Negative (Negative) 05/13/23 10:20 Urine Nitrite Negative (Negative) 05/13/23 10:20 Ur Leukocyte Esterase Negative (Negative) 05/13/23 10:20 Urine RBC 0-2 /HPF (0-2) 05/13/23 10:20 Urine WBC 0-5 /HPF (0-5) 05/13/23 10:20 Ur Squamous Epith Cells 0-2 /HPF (0-2) 05/13/23 10:20 Urine Bacteria None Seen (None Seen) 05/13/23 10:20 Hyaline Casts 0-2 /LPF (0-2) 05/13/23 10:20 Influenza Type A (PCR) NEGATIVE (Negative) 05/13/23 08:40 Influenza Type B (PCR) NEGATIVE (Negative) 05/13/23 08:40 RSV RNA Qual (PCR) NEGATIVE (Negative) 05/13/23 08:40 SARS-CoV-2 RNA (RT-PCR) NEGATIVE (Negative) 05/13/23 08:40 Impressions Chest X-Ray 05/13/23 09:06 IMPRESSION: Suspect mild pulmonary vascular congestion. Discharge Plan Discharge Anticipated Discharge Date/Time: 05/17/23 14:06 Patient Disposition: Home, Self-Care Discharge Diagnosis: Atrial fibrillation Cardiomyopathy Heart failure with reduced ejection fraction Referrals: Stanley Perea MD [Physician] - 2 Weeks Pooja Owen MD [Primary Care Provider] - 1 Week Discharge Medications: New Eliquis 5 mg Tablet 5 mg PO BID Qty: 60 0RF metoprolol succinate 25 mg Tablet Extended Release 24 Hr 12.5 mg PO DAILY Qty: 15 0RF Protocol: Hold for SBP/HR < HOLD for SBP < : 90 HOLD for HR < : 60 Entresto 24-26 mg Tablet 1 tab PO BID Qty: 60 0RF Protocol: Hold for SBP< HOLD for SBP < : 90 spironolactone 25 mg Tablet 12.5 mg PO DAILY Qty: 15 0RF Protocol: Hold for SBP< HOLD for SBP < : 90 amiodarone 200 mg tablet See Rx Instructions .ROUTE .COMPLEX Qty: 60 0RF Rx Instructions: 400 mg (two 200 mg tabs) twice daily for 10 days, then 200 mg once daily Jardiance 10 mg Tablet 10 mg PO DAILY Qty: 30 0RF furosemide 20 mg tablet 20 mg PO DAILY Qty: 30 0RF Continued multivitamin Tablet 1 tab PO DAILY cyanocobalamin (vitamin B-12) 1,000 mcg Tablet 1,000 mcg PO DAILY coenzyme Q10 [CoQ-10] 100 mg Capsule 200 mg PO DAILY Discharge Orders: Discharge Order (Routine); Ordered 05/17/23 Ordered By: Ruba Davis Diet: Low salt diet Activity on Discharge: As tolerated Stand Alone Forms: Patient Portal Discharge page Care Plan Goals: Heart health Health Concerns: Atrial fibrillation Cardiomyopathy Heart failure with reduced ejection fraction Plan of Treatment: Rhythm control: amiodarone 400 mg [two 200 mg tabs] twice daily for 10 days, then 200 mg once daily Stroke prevention: apixaban [Eliquis] 5 mg twice daily Heart failure: empagliflozin 10 mg once daily PLUS spironolactone 12.5 mg once daily PLUS metoprolol succinate 12.5 mg once daily PLUS Entresto 24-26 mg twice daily PLUS furosemide 20 mg once daily Low-sodium diet: less than 2000 mg of sodium daily. Weigh yourself daily and call your doctor if your weight goes up by more than 3 lb/day or 5 lb/week. Avoid alcohol. Follow up with [facility] Cardiology in 1-2 weeks. Please follow up with your primary care doctor within 1 week. Return to the hospital if you experience recurrent or worsening symptoms. Assessment: See Discharge Summary.
--- NOTE | 2023-05-17 14:29 | MHC.CM.PN ---
Pt has been medically cleared for DC, he will go home via family transport, self care.
--- NOTE | 2023-05-17 15:11 | HO.POSTANES ---
Post Anesthesia Evaluation Post Anesthesia Evaluation Date of Service: 05/17/23 Vital Signs: Vital Signs Temp Pulse Resp BP Pulse Ox O2 Del Method 05/17/23 11:15 96.6 F L 92 18 99/72 99 Room Air 05/17/23 07:22 96.7 F L 95 18 97/85 100 Room Air 05/17/23 04:00 97.3 F 85 19 110/63 99 Room Air Anesthesia: Monitored Mental Status: Awake Pain Control: Satisfactory Nausea/Vomiting: None Hydration: Adequate Anesthesia-Related Issues: No Anes. Related Issues
== END 2023-05-17 15:15 | disposition home or self-care (01) | DRG 194 ==
LOC: HO.ED 10:44 → HO.EDOVER 12:54 → HO.IMC 13:41
PROVIDERS: Hospitalist; Internal Medicine Cardiovascular Disease; Admitting Provider Student in an Organized Health Care Education/Training Program; Emergency Provider Emergency Medicine; PCP Family Medicine; Visit Provider Family Medicine
PROC: 5A2204Z Restoration of Cardiac Rhythm, Single (ICD-10-PCS; CPT 93312; principal; 2023-05-16 14:30)
PROC: 5A2204Z Restoration of Cardiac Rhythm, Single (ICD-10-PCS; 2023-05-16 14:30)
DX: I11.0 Hypertensive heart disease with heart failure (principal); I42.6 Alcoholic cardiomyopathy; I48.91 Unspecified atrial fibrillation; I50.22 Chronic systolic (congestive) heart failure; F10.20 Alcohol dependence, uncomplicated; Z20.822 Contact with and (suspected) exposure to COVID-19; Z91.148 Patient's other noncompliance with medication regimen for other reason; Z79.899 Other long term (current) drug therapy
CPT/HCPCS: 0241U; 36415; 71045; 80048; 80053; 80076; 81001; 83605; 83690; 83735; 83880; 84443; 84484; 85025; 85379; 85610; 87040; 92960; 93005; 93306; 99285; J0282; J1940; J2250; J2371; J2704; J3010; Q9957

== ENCOUNTER 2023-05-13 12:44 | Outpatient (BNV) | payer OTHER, SELFPAY | END 2023-05-16 15:00 | PROVIDERS: Admitting Provider Student in an Organized Health Care Education/Training Program; Emergency Provider Emergency Medicine; PCP Family Medicine; Visit Provider Internal Medicine Cardiovascular Disease | DX: I48.91 Unspecified atrial fibrillation (principal) | CPT/HCPCS: 93312 ==

== ENCOUNTER 2023-05-13 12:44 | Outpatient (BNV) | payer OTHER, SELFPAY | END 2023-05-14 07:00 | PROVIDERS: Admitting Provider Student in an Organized Health Care Education/Training Program; Emergency Provider Emergency Medicine; PCP Family Medicine; Visit Provider Internal Medicine Cardiovascular Disease | DX: I51.89 Other ill-defined heart diseases (principal) | CPT/HCPCS: 93306 ==

== ENCOUNTER → 2023-05-13 12:44 | Outpatient (BNV) | payer OTHER, SELFPAY | PROVIDERS: Admitting Provider Student in an Organized Health Care Education/Training Program; Emergency Provider Emergency Medicine; PCP Family Medicine; Visit Provider Student in an Organized Health Care Education/Training Program | DX: I48.91 Unspecified atrial fibrillation (principal); I42.9 Cardiomyopathy, unspecified; I50.21 Acute systolic (congestive) heart failure | CPT/HCPCS: 99223; 99232; 99233; 99239 ==

== ENCOUNTER → 2023-05-13 12:44 | Outpatient (BNV) | payer OTHER, SELFPAY | PROVIDERS: Admitting Provider Student in an Organized Health Care Education/Training Program; Emergency Provider Emergency Medicine; PCP Family Medicine; Visit Provider Internal Medicine Cardiovascular Disease | DX: I50.9 Heart failure, unspecified (principal); I48.91 Unspecified atrial fibrillation; I42.9 Cardiomyopathy, unspecified | CPT/HCPCS: 92960; 93010; 99223; 99233 ==

== ENCOUNTER 2023-06-01 13:41 | Outpatient (AMB) | payer OTHER, SELFPAY ==
--- NOTE | 2023-06-01 14:08 | A.OFFVIS_ITS ---
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: [employer] Present Allergies No Known Allergies Allergy (Verified 06/01/23 14:13) Medication List - Last Reconciled 06/01/23 by Jessica Chanel NP-C amiodarone 400 mg (two 200 mg tabs) twice daily for 10 days, then 200 mg once daily apixaban (Eliquis) 5 mg PO BID coenzyme Q10 (CoQ-10) 200 mg PO DAILY cyanocobalamin (vitamin B-12) 1,000 mcg PO DAILY empagliflozin (Jardiance) 10 mg PO DAILY furosemide 20 mg PO DAILY metoprolol succinate ER 12.5 mg See Protocol PO DAILY multivitamin 1 tab PO DAILY sacubitril-valsartan 24-26 mg (Entresto) 1 tab See Protocol PO BID spironolactone 12.5 mg See Protocol PO DAILY HPI 2 weeks follow up HPI Details Jim is a 57-year-old male with no significant past medical history who presented to the emergency room on 05/13/2023 with increased shortness of breath. He was found to have AFib RVR and treated with heart rate control. He did have evidence of Congestive heart failure and was treated with diuresis. During his admission he had a JORDAN cardioversion which was unsuccessful. Was started on an amiodarone load and now presents for cardiology follow-up. Today he reports that he has been doing better since his hospital discharge. He feels his breathing is back to normal. Has been mostly sedentary. No PND, orthopnea or edema. No chest discomfort at rest or with activity. No heart palpitations. He denies presyncope, syncope, falls. 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 Has been taking all his meds as directed. His stepdaughter is present. [facility] Medical History History of cardioversion HTN (hypertension) Social History Household Members: Spouse Housing: House Do you presently have visiting nurse or other home services: No Alcohol intake: current Alcohol intake frequency: 3 or more drinks per day Alcohol type: beer Patient Tobacco Use Status: Never used Tobacco service: No Review of Systems Const All systems reviewed & are unremarkable except as noted in HPI and below ENT Denies dizziness Card Denies chest pain, Denies chest pain at rest, Denies chest pain with activity, Denies rapid heart rate, Denies pedal edema, Denies edema, Denies leg edema, Denies lightheadedness, Denies palpitations, Denies dyspnea, Denies dyspnea on exertion and Denies orthopnea Resp Denies cough, Denies dyspnea and Denies dyspnea on exertion GI Denies hematochezia and Denies change in stool character Musc Denies abnormal gait, Denies limited range of motion, Denies muscle cramps, Denies muscle weakness, Denies numbness, Denies radiating pain into limb, Denies stiffness and Denies tingling Neuro Denies abnormal gait, Denies dizziness, Denies numbness and Denies tingling Endo Denies palpitations Physical Exam Vital Signs: Last Vital Signs Pulse 115 H 06/01/23 14:09 BP 130/70 06/01/23 14:09 BMI result Body Mass Index 29.7 Const General: cooperative, healthy appearing, comfortable and no acute distress Orientation/consciousness: patient oriented x3 Neck Neck: Yes normal visual inspection and Yes no JVD Resp Effort & Inspection: normal respiratory effort Auscultation: clear to auscultation bilaterally, no crackles, no rales, no rhonchi and no wheezes Cardio Jugular venous distension: no JVD Rate: regular rate Rhythm: abnormal rhythm Heart sounds: S1 normal heart sound present, S2 normal heart sound present, no murmurs and no rubs Neuro General: patient oriented x3 Extrem General: Yes normal to inspection, No no pedal edema and No calf tenderness Psych Appearance: grossly normal Mental Status: mental status grossly normal Speech and movement: Normal speech and movement present Office Procedures EKG Details: Today, read by me, atrial flutter with variable AV block, right axis, T-wave abnormality, rate 115, QTC 489 milliseconds [id number], Complete Assessment & Plan Assessment & Plan (1) Atrial fibrillation with RVR: Code(s): I48.91 - Unspecified atrial fibrillation Plan: New finding of AFib RVR at ER visit 05/13/2023. It presented with shortness of breath and was found to have mild Congestive heart failure. He was treated with heart rate control then underwent a transesophageal echocardiogram showing no LV thrombus. Cardioversion was attempted x2 without success. Continued in atrial fibrillation. Was then started on an amiodarone load followed by maintenance dose of 200 mg daily which he will start tomorrow. EKG done today showing atrial flutter, rate 115. Will have him increase his metoprolol from 12.5 mg up to 25 mg daily. Continue amiodarone. Plan is to have a repeat cardioversion. Procedure reviewed with him, risks reviewed and he states understanding. Will arrange for cardioversion in the next week if able. Continue current meds without change. The importance of strict compliance with anticoagulation, Yee reviewed with him. He tells me he has not missed any doses. Cardiology follow-up will be approximately 2 weeks post cardioversion. (2) Cardiomyopathy: Code(s): I42.9 - Cardiomyopathy, unspecified Plan: New finding of cardiomyopathy. Most likely tachycardia induced. Transesophageal Echocardiogram done 05/16/2023 shows EF 15-20%, mild decrease in the RV systolic function, no evidence of thrombus in the left atrial appendage. For heart failure management he was put on Entresto, metoprolol, Aldactone, Jardiance. He remains on low-dose Lasix at this time. Labs done on day of hospital discharge 05/17/2023 showed potassium 4.4, creatinine 0.96. Will have him recheck labs prior to cardioversion. Blood pressure currently controlled. Continue current med management, with small increase in the metoprolol dose. (3) Acute HFrEF (heart failure with reduced ejection fraction): Code(s): I50.21 - Acute systolic (congestive) heart failure Plan: As above. He does not appear fluid overloaded on examination. He tells me his breathing is back to normal. signs and symptoms of heart failure reviewed with him. (4) Hospital discharge follow-up: Code(s): Z09 - Encounter for follow-up examination after completed treatment for conditions other than malignant neoplasm Plan: As above Orders: Orders Cardioversion Today I48.91 - Unspecified atrial fibrillation Comprehensive Met. Panel Today I42.9 - Cardiomyopathy, unspecified, I50.21 - Acute systolic (congestive) heart failure TSH reflex Free T4 Today I48.91 - Unspecified atrial fibrillation B Type Natriuretic Peptide Today I50.21 - Acute systolic (congestive) heart failure Medications: Changed From amiodarone 400 mg (two 200 mg tabs) twice daily for 10 days, then 200 mg once daily 60 tabs 0RF To amiodarone 200 mg PO DAILY 30 tabs 5RF 30 days From metoprolol succinate ER 12.5 mg See Protocol PO DAILY 15 tabs 0RF To metoprolol succinate ER Dose increased 25 mg See Protocol PO DAILY 30 tabs 5RF 30 days Refilled apixaban (Eliquis) 5 mg PO BID 60 tabs 5RF empagliflozin (Jardiance) 10 mg PO DAILY 30 tabs 5RF furosemide 20 mg PO DAILY 30 tabs 5RF spironolactone 12.5 mg See Protocol PO DAILY 15 tabs 5RF sacubitril-valsartan 24-26 mg (Entresto) 1 tab See Protocol PO BID 60 tabs 5RF Coding Level of Care Code Est Pt Level 4 (40271) Diagnoses Atrial fibrillation with RVR I48.91 Cardiomyopathy I42.9 Acute HFrEF (heart failure with reduced ejection fraction) I50.21 Hospital discharge follow-up Z09 CPT Codes EKG - CPT: [id number]-[id number], Complete ([id number]) Time Spent (min) 30
[2023-06-01 14:09] VITALS: BP 130/70; PULSE 115; BMI 29.7
== END 2023-06-01 14:59 | disposition home or self-care (01) ==
PROVIDERS: PCP Family Medicine; Visit Provider Nurse Practitioner Family
DX: I48.91 Unspecified atrial fibrillation (principal); I42.9 Cardiomyopathy, unspecified; I50.21 Acute systolic (congestive) heart failure; Z09 Encounter for follow-up examination after completed treatment for conditions other than malignant neoplasm
CPT/HCPCS: 93010; 99214

== ENCOUNTER → 2023-06-01 13:41 | Outpatient (BNVA) | payer OTHER, SELFPAY | PROVIDERS: PCP Family Medicine; Visit Provider Nurse Practitioner Family | DX: Z09 Encounter for follow-up examination after completed treatment for conditions other than malignant neoplasm (principal); I48.91 Unspecified atrial fibrillation; I42.9 Cardiomyopathy, unspecified; I50.21 Acute systolic (congestive) heart failure; I48.92 Unspecified atrial flutter; I44.39 Other atrioventricular block; R94.31 Abnormal electrocardiogram [ECG] [EKG] | CPT/HCPCS: 93005; 99212 ==

== ENCOUNTER 2023-06-08 12:14 | Day surgery (SDC) | payer OTHER, SELFPAY ==
[2023-06-08 12:40] VITALS: BMI 28.8
[2023-06-08 12:51] VITALS: BP 132/92; PULSE 113; RESP 16; TEMP 36.4; O2SAT 99
[2023-06-08 12:59] LABS: Glucose, Whole Blood 96 mg/dL (60-115)
--- NOTE | 2023-06-08 13:13 | MHC.SHP ---
Pre-Procedural Eval Section A - 24 Hr Update-Section A only Date of Service: 06/08/23 The patient is an INPATIENT: Yes Section B - Complete if H&P > 30 days Chief Complaint: Unspecified atrial fibrillation Allergies: Allergies Allergy/AdvReac Type Severity Reaction Status Date / Time No Known Allergies Allergy Verified 06/01/23 14:13 Plan I have reviewed the history and physical and performed a pertinent physical examination on my patient. No changes have occurred unless specified. Time Spent With Patient Time: Total time managing care of this patient today ____ minutes.
--- NOTE | 2023-06-08 13:14 | HO.CARDIVERS ---
Cardioversion Procedure Note Cardioversion Date of Procedure: 06/08/2023 Ordering Provider: Dr. Perea Performing Provider: Dr. Williamson Indication for Procedure: Atrial fibrillation Pre-Op Diagnosis: Atrial fibrillation Post-Op Diagnosis: Sinus rhythm JORDAN findings (if JORDAN Performed): Not performed History: See office notes Consent: Informed consent obtained Procedure: After informed consent was obtained, patient was taken to the PACU. The patient was then positioned appropriately. The cardioversion pads were placed in anteroposterior position. Once under anesthesia, 150 joules of synchronized shock was administered. The rhythm converted from atrial fibrillation to sinus rhythm. Patient remained in sinus rhythm after the end of procedure. Complications: None Impression: Successful cardioversion to sinus rhythm. Recommendations: Continue amiodarone and Eliquis. EKG. Follow-up in clinic.
--- NOTE | 2023-06-08 13:26 | HO.ANESPROP2 ---
HPI - Anesthesia Eval Consult details Narrative: 57yo male patient . S/p cardioversion 05/16/23. For repeat cardioversion today. On jardiance presumably for heart failure. No h/o DM Anesthesia Pre-Procedure Meds Is the patient on any of the following meds?: Any other SGL-1 drugs or drugs that delay gastric emptying (Jardiance- last dose 06/06/23) If Yes to any meds - educate patient: Pt education - increased risk of aspiration PMFSH Active Problems Active Problems: All Active Problems Hospital discharge follow-up (Acute) Acute HFrEF (heart failure with reduced ejection fraction) (Acute) Cardiomyopathy (Acute) Congestive heart failure (Acute) Atrial fibrillation with RVR (Acute) H/o ETOH abuse Past Medical History Medical History History of cardioversion HTN (hypertension) Family History Family history of problems with anesthesia: No Surgical History History of Problems with Anesthesia: No Social History Social History Household Members: Spouse Housing: House Do you presently have visiting nurse or other home services: No Alcohol intake: current Alcohol intake frequency: 3 or more drinks per day Alcohol type: beer Patient Tobacco Use Status: Never used Tobacco service: No Meds Allergies Allergy/AdvReac Type Severity Reaction Status Date / Time No Known Allergies Allergy Verified 06/01/23 14:13 Home Medications ?Medication ?Instructions ?Recorded ?Confirmed ?Last Taken ?Type coenzyme Q10 100 mg capsule 200 mg PO DAILY 05/13/23 06/01/23 Unknown History (CoQ-10) cyanocobalamin (vitamin B-12) 1,000 mcg PO DAILY 05/13/23 06/08/23 06/07/23 History 1,000 mcg tablet multivitamin 1 tab PO DAILY 05/13/23 06/08/23 06/07/23 History Exam Height,Weight and Vital Signs: Height 5 ft 9 in Weight 88.507 kg Last Vital Signs Temp 97.5 F 06/08/23 12:51 Pulse 113 H 06/08/23 12:51 Resp 16 06/08/23 12:51 BP 132/92 H 06/08/23 12:51 Pulse Ox 99 06/08/23 12:51 O2 Del Method Room Air 06/08/23 12:51 Pertinent Lab Results Pertinent Lab Results: Laboratory Tests 06/08/23 12:55 POC Glucose 96 Airway Mallampati Class: II TM Dist: >3cm Neck ROM: Full Loose/Missing/Broken Teeth: Yes (Missing teeth top front right) Heart: Irregularly irregular Lungs: CTAB Assessment and Plan Assessment Anesthesia Assessment: Anesthesia Plan Discussed and Chart Reviewed Final Anesthetic Review Family History of Problems with Anesthesia: No History of Problems with Anesthesia: No NPO: Yes ASA Class: III Final Preanesthetic Review: No Changes in Pt Med Stat, Meds/Allgs Chart Reviewed, Consent Obtained/Reviewed and Anes Risks/Benef Reviewed Patient Risk: Intermediate Procedure Risk: Intermediate Assessment/Block/Sedation in SS: Assess/Block/Sedation-SS Anesthetic Plan Anesthetic Plan: GA Disposition: Standard PACU
[2023-06-08 13:51] VITALS: BP 99/73; PULSE 76; RESP 17; TEMP 36.3; O2SAT 100
--- NOTE | 2023-06-08 13:53 | ECG_ITS ---
Test Reason : S/P CARDIOVERSION Blood Pressure : / mmHG Vent. Rate : 073 BPM Atrial Rate : 073 BPM P-R Int : 160 ms QRS Dur : 084 ms QT Int : 418 ms P-R-T Axes : 064 071 041 degrees QTc Int : 460 ms Normal sinus rhythm Normal ECG When compared with ECG of 13-MAY-2023 08:27, Sinus rhythm has replaced Atrial fibrillation Vent. rate has decreased BY 70 BPM Nonspecific T wave abnormality, improved in Inferior leads Referred By: Hiral Narvaez Electronically Signed By:HIRAL NARVAEZ
[2023-06-08 14:06] VITALS: BP 111/81; PULSE 78; RESP 20; TEMP 36.3; O2SAT 100
== END 2023-06-08 14:25 | disposition home or self-care (01) ==
PROVIDERS: PCP Family Medicine; Visit Provider Internal Medicine
PROC: 5A2204Z Restoration of Cardiac Rhythm, Single (ICD-10-PCS; principal; 2023-06-08 14:00)
DX: I48.91 Unspecified atrial fibrillation (principal); I42.9 Cardiomyopathy, unspecified; I50.21 Acute systolic (congestive) heart failure; I11.0 Hypertensive heart disease with heart failure; Z79.01 Long term (current) use of anticoagulants; Z79.899 Other long term (current) drug therapy
CPT/HCPCS: 82947; 92960; 93005; J2704

== ENCOUNTER → 2023-06-08 12:14 | Outpatient (BNV) | payer OTHER, SELFPAY | PROVIDERS: PCP Family Medicine; Visit Provider Internal Medicine | DX: I48.91 Unspecified atrial fibrillation (principal) | CPT/HCPCS: 92960 ==

== ENCOUNTER → 2023-06-08 13:53 | Outpatient (BNV) | payer OTHER, SELFPAY | PROVIDERS: PCP Family Medicine; Visit Provider Internal Medicine | DX: I48.91 Unspecified atrial fibrillation (principal); Z98.890 Other specified postprocedural states | CPT/HCPCS: 93010 ==

== ENCOUNTER 2023-06-26 14:57 | Outpatient (AMB) | payer OTHER, SELFPAY ==
[2023-06-26 15:00] VITALS: BP 130/82; PULSE 66; BMI 29.7
--- NOTE | 2023-06-26 15:00 | MHC.OFFVIS ---
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: No Allergies No Known Allergies Allergy (Verified 06/26/23 15:02) Medication List - Last Reconciled 06/26/23 by Jessica Chanel NP-C amiodarone 200 mg PO DAILY 30 days apixaban (Eliquis) 5 mg PO BID coenzyme Q10 (CoQ-10) 200 mg PO DAILY cyanocobalamin (vitamin B-12) 1,000 mcg PO DAILY empagliflozin (Jardiance) 10 mg PO DAILY furosemide 20 mg PO DAILY metoprolol succinate ER 25 mg See Protocol PO DAILY 30 days multivitamin 1 tab PO DAILY sacubitril-valsartan 24-26 mg (Entresto) 1 tab See Protocol PO BID spironolactone 12.5 mg See Protocol PO DAILY HPI HPI Follow up post cardioversion: Details: Jim is a 57-year-old male with no significant past medical history who presented to the emergency room on 05/13/2023 with increased shortness of breath. He was found to have AFib RVR and treated with heart rate control. He did have evidence of Congestive heart failure and was treated with diuresis. During his admission he had a JORDAN cardioversion which was unsuccessful. Was started on an amiodarone. Once fully loaded he did undergo repeat cardioversion on 06/08/2023 which was successful. Today he reports that he has been feeling much better since the cardioversion. States he is feeling back to normal. He offers no concerning symptoms. Denies chest discomfort, heart palpitations, shortness of breath, edema. 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 Taking medications as directed. No bleeding issues reported. Friend is present. [facility] Medical History History of cardioversion HTN (hypertension) Social History Household Members: Spouse Housing: House Do you presently have visiting nurse or other home services: No Alcohol intake: current Alcohol intake frequency: 3 or more drinks per day Alcohol type: beer Patient Tobacco Use Status: Never used Tobacco service: No Review of Systems Const All systems reviewed & are unremarkable except as noted in HPI and below ENT Denies dizziness Card Denies chest pain, Denies chest pain at rest, Denies chest pain with activity, Denies rapid heart rate, Denies pedal edema, Denies edema, Denies leg edema, Denies lightheadedness, Denies palpitations, Denies dyspnea, Denies dyspnea on exertion and Denies orthopnea Resp Denies cough, Denies dyspnea and Denies dyspnea on exertion GI Denies hematochezia and Denies change in stool character Musc Denies abnormal gait, Denies limited range of motion, Denies muscle cramps, Denies muscle weakness, Denies numbness, Denies radiating pain into limb, Denies stiffness and Denies tingling Neuro Denies abnormal gait, Denies dizziness, Denies numbness and Denies tingling Endo Denies palpitations Physical Exam Vital Signs: Last Vital Signs Pulse 66 06/26/23 15:00 BP 130/82 06/26/23 15:00 BMI result Body Mass Index 29.7 Const General: cooperative, healthy appearing, comfortable and no acute distress Orientation/consciousness: patient oriented x3 Neck Neck: Yes normal visual inspection and Yes no JVD Resp Effort & Inspection: normal respiratory effort Auscultation: clear to auscultation bilaterally, no crackles, no rales, no rhonchi and no wheezes Cardio Jugular venous distension: no JVD Rate: regular rate Rhythm: regular rhythm Heart sounds: S1 normal heart sound present, S2 normal heart sound present, no murmurs and no rubs Neuro General: patient oriented x3 Extrem General: Yes normal to inspection, No no pedal edema and No calf tenderness Psych Appearance: grossly normal Mental Status: mental status grossly normal Speech and movement: Normal speech and movement present Office Procedures EKG Details: Today, read by me, normal sinus rhythm, nonspecific ST and T-wave abnormality, rate 66, QTC 452 milliseconds [id number], Complete Assessment & Plan Assessment & Plan (1) Atrial fibrillation with RVR: Code(s): I48.91 - Unspecified atrial fibrillation Category: Medical Plan: New finding of AFib RVR at ER visit 05/13/2023. He presented with shortness of breath and was found to have the new AFib and mild Congestive heart failure. He was treated with heart rate control then underwent a transesophageal echocardiogram showing no LV thrombus. Cardioversion was attempted x2 without success. He continued in atrial fibrillation and was started on an amiodarone load followed by maintenance dose of 200 mg daily. He was on Eliquis for anticoagulation. EKG done last visit showing atrial flutter, rate 115. His metoprolol dose was increased to 25 mg daily. He was scheduled for a repeat cardioversion which was done on 06/08/2023 with successful conversion to normal sinus rhythm. An EKG done today is showing sinus rhythm with nonspecific ST and T-wave abnormality, rate 66, QTC 452 milliseconds. He reports feeling much better post cardioversion. He has no shortness of breath, heart palpitations, chest discomfort. Will have him continue amiodarone and metoprolol. Continue Eliquis for anticoagulation. His CHADS-VASc score is 0 and he should not need long-term anticoagulation. Cardiology follow-up 6 weeks, sooner if needed. (2) Cardiomyopathy: Code(s): I42.9 - Cardiomyopathy, unspecified Category: Medical Plan: New finding of cardiomyopathy during admission for heart failure and new AFib. Most likely tachycardia induced. Transesophageal Echocardiogram done 05/16/2023 shows EF 15-20%, mild decrease in the RV systolic function, no evidence of thrombus in the left atrial appendage. For heart failure management he was put on Entresto, metoprolol, Aldactone, Jardiance. He remains on low-dose Lasix at this time. Labs done on day of hospital discharge 05/17/2023 showed potassium 4.4, creatinine 0.96. Blood pressure currently controlled. To further evaluate his cardiomyopathy will order an exercise nuclear stress test. Will also order a limited echo to reassess EF. Will plan to wait another 2 weeks to allow EF more time to improve assuming it was tachycardia related. Will have him check labs on the day of his testing, CMP, BNP, TSH. Continue current med management. (3) Acute HFrEF (heart failure with reduced ejection fraction): Code(s): I50.21 - Acute systolic (congestive) heart failure Category: Medical Plan: As above. He does not appear fluid overloaded on examination. He tells me his breathing is back to normal. signs and symptoms of heart failure reviewed with him. (4) Abnormal EKG: Code(s): R94.31 - Abnormal electrocardiogram [ECG] [EKG] Category: Medical Plan: EKG today is showing nonspecific ST and T-wave abnormalities. He did have recent cardioversion. Will be ordering a nuclear stress test as above. Plan Time spent on chart review, documentation, interview and assessment Orders: Orders CA stress test 2 Weeks I42.9 - Cardiomyopathy, unspecified, I50.9 - Heart failure, unspecified, R94.31 - Abnormal electrocardiogram [ECG] [EKG] NM cardiolite stress test 2 Weeks I42.9 - Cardiomyopathy, unspecified, I50.9 - Heart failure, unspecified, R94.31 - Abnormal electrocardiogram [ECG] [EKG] CA echo limited 2 Weeks I42.9 - Cardiomyopathy, unspecified Scribe Plan - Not visible on output: Time spent on chart review, documentation, interview and assessment Coding Level of Care Code Est Pt Level 4 (26402) Diagnoses Atrial fibrillation with RVR I48.91 Cardiomyopathy I42.9 Acute HFrEF (heart failure with reduced ejection fraction) I50.21 Abnormal EKG R94.31 CPT Codes EKG - CPT: 81419-[id number], Complete ([id number]) Time Spent (min) 30
== END 2023-06-26 15:21 | disposition home or self-care (01) ==
PROVIDERS: PCP Family Medicine; Visit Provider Nurse Practitioner Family
DX: I48.91 Unspecified atrial fibrillation (principal); I42.9 Cardiomyopathy, unspecified; I50.21 Acute systolic (congestive) heart failure; R94.31 Abnormal electrocardiogram [ECG] [EKG]
CPT/HCPCS: 93010; 99214

== ENCOUNTER → 2023-06-26 14:57 | Outpatient (BNVA) | payer OTHER, SELFPAY | PROVIDERS: PCP Family Medicine; Visit Provider Nurse Practitioner Family | DX: I48.91 Unspecified atrial fibrillation (principal); I42.9 Cardiomyopathy, unspecified; I50.21 Acute systolic (congestive) heart failure; R94.31 Abnormal electrocardiogram [ECG] [EKG]; Z79.01 Long term (current) use of anticoagulants; Z79.899 Other long term (current) drug therapy | CPT/HCPCS: 93005; 99212 ==

== ENCOUNTER → 2023-07-17 14:54 | Outpatient (REF) | payer OTHER, SELFPAY ==
--- NOTE | 2023-07-17 14:56 | CA_ITS ---
Transthoracic Echocardiogram Patient (Last, First, Middle): Jim Fletcher, Gender: Male Date of : 1965 Age: 57 Procedure Date: 07/17/2023 Procedure Type: Transthoracic Echocardiogram Location: OP Height: 175.26 cm Weight: 70.76 kg BSA: 1.86 m2 Heart Rate: bpm BP: 142 / 78 mmHg Regulatory Affairs Portfolio Leader: SEGUNDO Referring MD: Jessica Chanel CREDIT COLLECTOR-Laura Symptoms: I42.9 - Cardiomyopathy, unspecified Study Quality: Adequate, contrast ECG Rhythm: Sinus Conclusions: - The left ventricular systolic function is moderately decreased. The visually estimated ejection fraction is between 35-40%. Findings Procedure Information Contrast agent, definity, is being given per protocol without apparent complications. Left Ventricle Normal left ventricular cavity size. There is normal left ventricular wall thickness. The left ventricular systolic function is moderately decreased. The visually estimated ejection fraction is between 35-40%. There is moderate global hypokinesis. Venous The inferior vena cava is normal in size and collapses greater than 50% with inspiration. Prior Study Comparison Changes noted compared to prior study dated: 05/16/2023. Improved LVEF. Measurements 2D Linear Measurements IVSd: 0.84 0.6-0.9/0.6-1.0 cm LVIDd: 5.67 3.9-5.3/4.2-5.9 cm LVIDd Index: 3.05 2.4-3.2/2.2-3.1 cm/m2 LVIDs: 3.95 2.0-3.6 cm LVPWd: 0.98 0.7-1.1 cm LV Mass: 247.77 67-162/88-224 g LV Mass Index: 133.21 43-95/49-115 g/m2 LVOT Diam: 2.30 3.0+(-)1.3 cm 2D Systolic Function EF 4C: 46.70 >55% EF 2C: 61.10 >55% LVOT LVOT Pk Carlos: 1.05 LVOT Mn Carlos: 0.69 LVOT VTI: 0.24 LVOT Pk Grad: 4.00 LVOT Mn Grad: 2.00 LVOT Diam: 2.30 LVOT Area: 4.15 Tricuspid Valve RA Press: 3.00 Updated in Other Vendor System with Status of Final Elvis Williamson MD electronically signed on 07/18/2023 11:15:10 AM with status of Final
== END ==
LOC: HO.CARD 14:54
PROVIDERS: PCP Family Medicine; Visit Provider Nurse Practitioner Family
DX: I42.9 Cardiomyopathy, unspecified (principal)
CPT/HCPCS: 93308; Q9957

== ENCOUNTER → 2023-07-17 14:56 | Outpatient (BNV) | payer OTHER, SELFPAY | PROVIDERS: PCP Family Medicine; Visit Provider Internal Medicine | DX: I42.9 Cardiomyopathy, unspecified (principal) | CPT/HCPCS: 93308 ==

== ENCOUNTER → 2023-08-10 07:54 | Outpatient (REF) | payer OTHER, SELFPAY ==
--- NOTE | ~2023-08-10 | NM_ITS ---
Exercise Myocardial perfusion study Indication: Abnormal EKG to evaluate for myocardial ischemia Technique: The patient was brought in for an exercise perfusion study on 08/10/2023. Patient performed exercise as per Jayjay protocol and was injected 30 mCi of sestamibi was given intravenously one target HR was achieved. Images were obtained using the SPECT gamma camera interlaced with the gating device. Images were obtained in supine position. Resting perfusion study was performed on 08/13/2023. Patient was administered 30 mCi of sestamibi intravenously at rest. Images were then obtained in supine position. Images obtained with and without CT attenuation. Total DLP 100 mGy-cm. Images were processed with the software and compared side to side in short axis, horizontal long axis and vertical long axis views. Findings: The stress perfusion study showed both attenuated as well as non attenuated corrected images show normal uptake of radiotracer in all segments of LV myocardium. The gated study shows reduced LV systolic function with calculated LVEF of 49%. LV cavity is mildly dilated in size. The gated study shows normal wall thickening and mildly reduced contraction of all segments. There is no transient ischemic dilation. Resting study shows no change in perfusion pattern compared to stress perfusion study. Gating at rest reveals normal wall motion with ejection fraction at 40%. The findings are consistent with no reversible defect suggestive of ischemia. NM/NM cardiolite stress test Impression: 1. Normal myocardial perfusion 2. Gated LVEF is 49% 3. Transient ischemic dilatation not present but LV cavity is dilated Stress EKG is equivocal for ischemia
--- NOTE | 2023-08-10 07:58 | CA_ITS ---
Acquisition Time: 2023-08-10 07:53:32 Total Exercise Time: 00:08:06 Test Indications: Abnormal ECG CARDIOMYOPATHY Medications: AMIODORONE ELIQUIS JARDIANCE FUROSEMIDE ENTRESTO METOPROLOL SPIRONALACTONE Protocol: NAI Max HR: 146 BPM 88% of Pred: 165 BPM Max BP: 192/078 mmHG Max Work Load: 10.1 METS Exercise stress test with exercise 8 min 6 sec of Nai protocol, achieving 88% MPHR, without anginal symptoms, with one PVC, with normotensive response to exercise, with EKG at baseline showing ST abnormality/ downlsoping inferolateral leads, with exercse there is up to 1mm ST depression inferiorly which gradually returns to baseline - EKGs equivocal for ischemia due to baseline abnormality. Nuclear images pending. Test reviewed with Dr Perea. Referred By: Jessica Chanel Overread By: JESSICA CHANEL
== END ==
LOC: HO.CARD 07:54
PROVIDERS: PCP Family Medicine; Visit Provider Nurse Practitioner Family
DX: I42.9 Cardiomyopathy, unspecified (principal); I50.9 Heart failure, unspecified; R94.31 Abnormal electrocardiogram [ECG] [EKG]
CPT/HCPCS: 78452; 93017; A9500

== ENCOUNTER → 2023-08-10 07:58 | Outpatient (BNV) | payer OTHER, SELFPAY | PROVIDERS: PCP Family Medicine; Visit Provider Nurse Practitioner Family | DX: R94.31 Abnormal electrocardiogram [ECG] [EKG] (principal) | CPT/HCPCS: 78452; 93016; 93018 ==

== ENCOUNTER 2023-09-14 13:47 | Outpatient (AMB) | payer OTHER, SELFPAY ==
--- NOTE | 2023-09-14 14:01 | A.OFFVIS_ITS ---
Vital Signs 09/14/23 14:02 Height 5 ft 9 in Weight 206 lb 12.697 oz BMI 30.5 BP 134/72 Blood Pressure Location Rt brachial Position Sitting Pulse 60 Pulse Source Monitor Intake Visit Reasons: f/u after testing Clinic Office Manager Required: No Allergies No Known Allergies Allergy (Verified 09/14/23 14:03) Medication List - Last Reconciled 09/14/23 by Jessica Chanel, PARTS COUNTERMAN-C amiodarone 200 mg PO DAILY 30 days apixaban (Eliquis) 5 mg PO BID coenzyme Q10 (CoQ-10) 200 mg PO DAILY cyanocobalamin (vitamin B-12) 1,000 mcg PO DAILY empagliflozin (Jardiance) 10 mg PO DAILY furosemide 20 mg PO DAILY metoprolol succinate ER 25 mg See Protocol PO DAILY 30 days multivitamin 1 tab PO DAILY sacubitril-valsartan 24-26 mg (Entresto) 1 tab See Protocol PO BID spironolactone 12.5 mg See Protocol PO DAILY HPI HPI f/u after testing: Details: Jim is a 57-year-old male with no significant past medical history who presented to the emergency room on 05/13/2023 with increased shortness of breath. He was found to have AFib RVR and treated with heart rate control. He did have evidence of Congestive heart failure and was diuresed. During his admission he had a JORDAN cardioversion which was unsuccessful. Was started on an amiodarone. Once fully loaded he did undergo repeat cardioversion on 06/08/2023 which was successful. On last visit a nuclear stress test and limited echocardiogram were ordered and he now presents for follow-up. Today he reports that he has been well overall. He offers no concerning symptoms. Denies chest discomfort, heart palpitations, shortness of breath, edema. No lightheadedness, presyncope, syncope, falls. No PND, orthopnea. 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 Taking medications as directed. No bleeding issues reported. Significant other is present. [facility] Medical History History of cardioversion HTN (hypertension) Social History Household Members: Spouse Housing: House Do you presently have visiting nurse or other home services: No Alcohol intake: current Alcohol intake frequency: 3 or more drinks per day Alcohol type: beer Patient Tobacco Use Status: Never used Tobacco service: No Review of Systems Const All systems reviewed & are unremarkable except as noted in HPI and below ENT Denies dizziness Card Denies chest pain, Denies chest pain at rest, Denies chest pain with activity, Denies rapid heart rate, Denies pedal edema, Denies edema, Denies leg edema, Denies lightheadedness, Denies palpitations, Denies dyspnea, Denies dyspnea on exertion and Denies orthopnea Resp Denies cough, Denies dyspnea and Denies dyspnea on exertion GI Denies hematochezia and Denies change in stool character Musc Denies abnormal gait, Denies limited range of motion, Denies muscle cramps, Denies muscle weakness, Denies numbness, Denies radiating pain into limb, Denies stiffness and Denies tingling Neuro Denies abnormal gait, Denies dizziness, Denies numbness and Denies tingling Endo Denies palpitations Physical Exam Vital Signs: Last Vital Signs Pulse 60 09/14/23 14:02 BP 134/72 09/14/23 14:02 BMI result Body Mass Index 30.5 Const General: cooperative, healthy appearing, comfortable and no acute distress Orientation/consciousness: patient oriented x3 Neck Neck: Yes normal visual inspection and Yes no JVD Resp Effort & Inspection: normal respiratory effort Auscultation: clear to auscultation bilaterally, no crackles, no rales, no rhonchi and no wheezes Cardio Jugular venous distension: no JVD Rate: regular rate Rhythm: regular rhythm Heart sounds: S1 normal heart sound present, S2 normal heart sound present, no murmurs and no rubs Neuro General: patient oriented x3 Extrem General: Yes normal to inspection, No no pedal edema and No calf tenderness Psych Appearance: grossly normal Mental Status: mental status grossly normal Speech and movement: Normal speech and movement present Office Procedures EKG Details: Today, read by me, normal sinus rhythm, ST and T-wave abnormality inferior lateral leads, more pronounced then prior EKG, rate 60, QTC 442 milliseconds. [id number], Complete Assessment & Plan Assessment & Plan (1) Atrial fibrillation with RVR: Code(s): I48.91 - Unspecified atrial fibrillation Category: Medical Plan: New finding of AFib RVR at ER visit 05/13/2023. He presented with shortness of breath and was found to have the new AFib and mild Congestive heart failure. He was treated with heart rate control then underwent a transesophageal echocardiogram showing no LV thrombus. Cardioversion was attempted x2 without success. He continued in atrial fibrillation and was started on an amiodarone load followed by maintenance dose of 200 mg daily. He was on Eliquis for anticoagulation. On follow-up visit he had EKG showing atrial flutter. He underwent a repeat cardioversion which was done on 06/08/2023 with successful conversion to normal sinus rhythm. Today he reports that he has been feeling well with no concerning symptoms. EKG today shows sinus rhythm, rate 60, QTC 442 milliseconds. Will check with his primary media account executive regarding plan for amiodarone use. At this time will have him continue amiodarone rhythm control. Continue metoprolol for heart rate control. Continue Eliquis for anticoagulation. His CHADS-VASc score is 0 and he should not need long-term anticoagulation. Cardiology follow-up 8 weeks, sooner if needed. (2) Cardiomyopathy: Code(s): I42.9 - Cardiomyopathy, unspecified Category: Medical Plan: New finding of cardiomyopathy during admission for heart failure and new AFib. Most likely tachycardia induced. Transesophageal Echocardiogram done 05/16/2023 shows EF 15-20%, mild decrease in the RV systolic function, no evidence of thrombus in the left atrial appendage. For heart failure management he was put on Entresto, metoprolol, Aldactone, Jardiance. He remains on low-dose Lasix at this time. A limited echocardiogram done 07/17/2023 EF 35-40%. Nuclear stress test done 08/13/2023 showed normal myocardial perfusion imaging. Blood pressure 134/72. Asymptomatic at this time. Will have him further titrate Entresto up to next dose, 49/51 b.i.d.. Instructed to call if he has any issues with lightheadedness. Labs in 1 week including BMP, BNP and TSH. Continue metoprolol, Jardiance, Lasix, spironolactone. Signs and symptoms of heart failure reviewed with him. (3) Acute HFrEF (heart failure with reduced ejection fraction): Code(s): I50.21 - Acute systolic (congestive) heart failure Category: Medical Plan: As above. He does not appear fluid overloaded on examination. He tells me his breathing is back to normal. (4) Abnormal EKG: Code(s): R94.31 - Abnormal electrocardiogram [ECG] [EKG] Category: Medical Plan: EKG today is showing nonspecific ST and T-wave abnormalities, inferior lateral leads, more pronounced then prior EKG. Recent nuclear stress test was normal. He currently offers no concerning symptoms. Plan Time spent on chart review, documentation, interview and assessment Scribe Plan - Not visible on output: Time spent on chart review, documentation, interview and assessment Coding Level of Care Code Est Pt Level 4 (87419) Diagnoses Atrial fibrillation with RVR I48.91 Cardiomyopathy I42.9 Acute HFrEF (heart failure with reduced ejection fraction) I50.21 Abnormal EKG R94.31 CPT Codes EKG - CPT: [id number], Complete ([id number]) Time Spent (min) 36
[2023-09-14 14:02] VITALS: BP 134/72; PULSE 60; BMI 30.5
== END 2023-09-14 14:49 | disposition home or self-care (01) ==
PROVIDERS: PCP Family Medicine; Visit Provider Nurse Practitioner Family
DX: I48.91 Unspecified atrial fibrillation (principal); I42.9 Cardiomyopathy, unspecified; I50.21 Acute systolic (congestive) heart failure; R94.31 Abnormal electrocardiogram [ECG] [EKG]
CPT/HCPCS: 93010; 99214

== ENCOUNTER → 2023-09-14 13:47 | Outpatient (BNVA) | payer OTHER, SELFPAY | PROVIDERS: PCP Family Medicine; Visit Provider Nurse Practitioner Family | DX: I48.91 Unspecified atrial fibrillation (principal); I11.0 Hypertensive heart disease with heart failure; I50.21 Acute systolic (congestive) heart failure; I42.9 Cardiomyopathy, unspecified; R94.31 Abnormal electrocardiogram [ECG] [EKG]; Z98.890 Other specified postprocedural states | CPT/HCPCS: 93005; 99212 ==

== ENCOUNTER 2023-10-18 06:19 | Outpatient (REF) | payer OTHER, SELFPAY ==
[2023-10-18 08:04] LABS: B Type Natriuretic Peptide 14 pg/mL (<100)
[2023-10-18 08:33] LABS: Alanine Aminotransferase 50 U/L (0-40); Albumin Level 4.9 g/dL (3.5-5.0); Alkaline Phosphatase 61 U/L (39-117); Anion Gap 12 (12-20); Aspartate Amino Transferase 34 U/L (5-37); Bilirubin Total 0.5 mg/dL (0.0-1.0); Blood Urea Nitrogen 20 mg/dL (9-16); Calcium 10.2 mg/dL (8.4-10.2); Carbon Dioxide 27 mmol/L (22-29); Chloride 105 mmol/L (96-108); Estimated Glomerular Filt Rate > 60; Glucose Random 110 mg/dL (60-115); Potassium 4.3 mmol/L (3.3-5.1); Sodium 140 mmol/L (135-145); Total Protein 8.2 g/dL (6.5-8.0)
[2023-10-18 08:51] LABS: TSH reflex Free T4 1.46 uIU/mL (0.32-4.0)
== END 2023-10-18 06:20 | disposition home or self-care (01) ==
LOC: HO.LAB 06:19
PROVIDERS: PCP Family Medicine; Visit Provider Nurse Practitioner Family
DX: I42.9 Cardiomyopathy, unspecified (principal); I50.21 Acute systolic (congestive) heart failure; I48.91 Unspecified atrial fibrillation
CPT/HCPCS: 36415; 80053; 83880; 84443

== ENCOUNTER 2023-11-09 08:07 | Outpatient (AMB) | payer OTHER, SELFPAY ==
--- NOTE | 2023-11-09 08:23 | A.OFFVIS_ITS ---
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: Cut Off Saw Operator Present Allergies No Known Allergies Allergy (Verified 11/09/23 08:25) Medication List - Last Reconciled 11/09/23 by RHINA BoboC amiodarone 200 mg PO DAILY 30 days apixaban (Eliquis) 5 mg PO BID coenzyme Q10 (CoQ-10) 200 mg PO DAILY cyanocobalamin (vitamin B-12) 1,000 mcg PO DAILY empagliflozin (Jardiance) 10 mg PO DAILY furosemide 20 mg PO DAILY metoprolol succinate ER 25 mg See Protocol PO DAILY 30 days multivitamin 1 tab PO DAILY sacubitril-valsartan 49-51 mg (Entresto) 1 tab PO BID spironolactone 12.5 mg See Protocol PO DAILY HPI HPI 2m follow up: Details: Jim is a 57-year-old male with no significant past medical history who presented to the emergency room on 05/13/2023 with increased shortness of breath. He was found to have AFib RVR and treated with heart rate control. He did have evidence of Congestive heart failure, significantly reduced EF and was diuresed. During his admission he had a JORDAN cardioversion which was unsuccessful. Was started on an amiodarone. Once fully loaded he did undergo repeat cardioversion on 06/08/2023 which was successful. Since then he has undergone a stress test which was normal and echocardiogram showed some improvement in EF. Today he reports that he has been feeling very well. He offers no concerning symptoms. Denies chest discomfort, heart palpitations, shortness of breath, ed fanny. No lightheadedness, presyncope, syncope, falls. No PND, orthopnea. 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 Taking medications as directed. No bleeding issues reported. He is not interested in ablation as he read some things about it and the procedure worries him. Significant other is present. [facility] Medical History History of cardioversion HTN (hypertension) Social History Household Members: Spouse Housing: House Do you presently have visiting nurse or other home services: No Alcohol intake: current Alcohol intake frequency: 3 or more drinks per day Alcohol type: beer Patient Tobacco Use Status: Never used Tobacco service: No Review of Systems Const All systems reviewed & are unremarkable except as noted in HPI and below ENT Denies dizziness Card Denies chest pain, Denies chest pain at rest, Denies chest pain with activity, Denies rapid heart rate, Denies pedal edema, Denies edema, Denies leg edema, Denies lightheadedness, Denies palpitations, Denies dyspnea, Denies dyspnea on exertion and Denies orthopnea Resp Denies cough, Denies dyspnea and Denies dyspnea on exertion GI Denies hematochezia and Denies change in stool character Musc Denies abnormal gait, Denies limited range of motion, Denies muscle cramps, Denies muscle weakness, Denies numbness, Denies radiating pain into limb, Denies stiffness and Denies tingling Neuro Denies abnormal gait, Denies dizziness, Denies numbness and Denies tingling Endo Denies palpitations Physical Exam Vital Signs: Last Vital Signs Pulse 53 11/09/23 08:24 BP 130/72 11/09/23 08:24 BMI result Body Mass Index 31.1 Const General: cooperative, healthy appearing, comfortable and no acute distress Orientation/consciousness: patient oriented x3 Neck Neck: Yes normal visual inspection and Yes no JVD Resp Effort & Inspection: normal respiratory effort Auscultation: clear to auscultation bilaterally, no rales, no rhonchi and no wheezes Cardio Jugular venous distension: no JVD Rate: regular rate Rhythm: regular rhythm Heart sounds: S1 normal heart sound present, S2 normal heart sound present, no gallops, no murmurs and no rubs Neuro General: patient oriented x3 Extrem General: Yes normal to inspection and No no pedal edema Psych Appearance: grossly normal Mental Status: mental status grossly normal Speech and movement: Normal speech and movement present Office Procedures EKG Details: Today, read by me, sinus bradycardia, ST and T-wave abnormality inferior lateral leads, unchanged from prior EKG, rate 53, QTC 433 millisecond [id number], Complete Assessment & Plan Assessment & Plan (1) Atrial fibrillation with RVR: Code(s): I48.91 - Unspecified atrial fibrillation Category: Medical Plan: New finding of AFib RVR at ER visit 05/13/2023. He presented with shortness of breath and was found to have AFib RVR and mild Congestive heart failure. Echoc ardiogram showed significantly reduced EF. Cardioversion was attempted x2 without success. He continued in atrial fibrillation and was started on an amiodarone. He was put on Eliquis for anticoagulation. On follow-up visit he had EKG showing atrial flutter. He underwent a repeat cardioversion which was done on 06/08/2023 with successful conversion to normal sinus rhythm. He has had no known recurrent AFib since that time. Today he reports that he has been feeling well with no concerning symptoms. EKG today shows sinus rhythm, rate 53, QTC 433 milliseconds. AFib ablation had been discussed with him and he declines. He is fearful of the procedure. Will continue on amiodarone, low- dose metoprolol, Eliquis at this time. Will check a limited echocardiogram to see if EF has normalized. If it has then will change his amiodarone over to flecainide. If EF has not normalized will further discuss case with Dr. Perea. His CHADS-VASc score is 1 with CHF. Cardiology follow-up 3 months, sooner if needed. (2) Cardiomyopathy: Code(s): I42.9 - Cardiomyopathy, unspecified Category: Medical Plan: New finding of cardiomyopathy during admission for heart failure and new AFib, last April. Most likely tachycardia induced. Transesophageal Echocardiogram done 05/16/2023 shows EF 15-20%, mild decrease in the RV systolic function, no evidence of thrombus in the left atrial appendage. For heart failure management he was put on Entresto, metoprolol, Aldactone, Jardiance. He remains on low- dose Lasix at this time. A limited echocardiogram done 07/17/2023 EF 35-40%. Nuclear stress test done 08/13/2023 showed normal myocardial perfusion imaging. Blood pressure 130/74. Entresto dose was increased last visit. Labs done 10/18/2023 showed potassium 4.3, creatinine 1.06, BNP 14. Continue current med management without change. Checking limited echo to reassess EF. Signs and symptoms of heart failure reviewed with him. (3) Acute HFrEF (heart failure with reduced ejection fraction): Code(s): I50.21 - Acute systolic (congestive) heart failure Category: Medical Plan: As above. He does not appear fluid overloaded on examination. He tells me his breathing is back to normal. (4) Abnormal EKG: Code(s): R94.31 - Abnormal electrocardiogram [ECG] [EKG] Category: Medical Plan: EKG today is showing nonspecific ST and T-wave abnormalities, inferior lateral leads, same as last EKG. Recent nuclear stress test was normal. He currently offers no concerning symptoms. Plan Time spent on chart review, documentation, interview and assessment Orders: Orders CA Echo Limited Today I50.21 - Acute systolic (congestive) heart failure Scribe Plan - Not visible on output: Time spent on chart review, documentation, interview and assessment Coding Level of Care Code Est Pt Level 4 (73935) Diagnoses Atrial fibrillation with RVR I48.91 Cardiomyopathy I42.9 Acute HFrEF (heart failure with reduced ejection fraction) I50.21 Abnormal EKG R94.31 CPT Codes EKG - CPT: 77309-[id number], Complete ([id number]) Time Spent (min) 36
[2023-11-09 08:24] VITALS: BP 130/72; PULSE 53; BMI 31.1
== END 2023-11-09 08:49 | disposition home or self-care (01) ==
PROVIDERS: PCP Family Medicine; Visit Provider Nurse Practitioner Family
DX: I48.91 Unspecified atrial fibrillation (principal); I42.9 Cardiomyopathy, unspecified; I50.21 Acute systolic (congestive) heart failure; R94.31 Abnormal electrocardiogram [ECG] [EKG]
CPT/HCPCS: 93010; 99214

== ENCOUNTER → 2023-11-09 08:07 | Outpatient (BNVA) | payer OTHER, SELFPAY | PROVIDERS: PCP Family Medicine; Visit Provider Nurse Practitioner Family | DX: I48.91 Unspecified atrial fibrillation (principal); I42.9 Cardiomyopathy, unspecified; I50.21 Acute systolic (congestive) heart failure; R94.31 Abnormal electrocardiogram [ECG] [EKG]; R00.1 Bradycardia, unspecified | CPT/HCPCS: 93005; 99212 ==

== ENCOUNTER → 2023-11-30 07:54 | Outpatient (REF) | payer OTHER, SELFPAY ==
--- NOTE | 2023-11-30 07:56 | CA_ITS ---
Transthoracic Echocardiogram Patient (Last, First, Middle): Jim Fletcher, Gender: Male Date of : 1965 Age: 58 Procedure Date: 11/30/2023 Procedure Type: Transthoracic Echocardiogram Location: OP Height: 175.26 cm Weight: 95.26 kg BSA: 2.11 m2 Heart Rate: bpm BP: 130 / 78 mmHg Contract Admin: TO Referring MD: Jessica Chanel TR[employer]-Laura Symptoms: I50.21 - Acute systolic (congestive) heart failure Study Quality: Adequate w contrast Conclusions: - Mildly reduced LV ejection fraction 45-50% Findings Procedure Information Contrast agent, definity, is being given per protocol without apparent complications. Left Ventricle Normal left ventricular cavity size. There is normal left ventricular wall thickness. The left ventricular systolic function is mildly decreased. The visually estimated ejection fraction is between 45-50%. Spectral Doppler is indicative of a normal filling pattern. Prior Study Comparison Changes noted compared to prior study dated: 07/17/2023. LV ejection fraction has improved Measurements 2D Linear Measurements IVSd: 0.91 0.6-0.9/0.6-1.0 cm LVIDd: 5.26 3.9-5.3/4.2-5.9 cm LVIDd Index: 2.49 2.4-3.2/2.2-3.1 cm/m2 LVIDs: 3.59 2.0-3.6 cm LVPWd: 0.91 0.7-1.1 cm LV Mass: 217.11 67-162/88-224 g LV Mass Index: 102.90 43-95/49-115 g/m2 LVOT Diam: 2.40 3.0+(-)1.3 cm 2D Systolic Function EF 4C: 43.80 >55% EF 2C: 54.70 >55% EF BiP: 49.20 >55% Mitral Valve MV Pk E: 0.74 MV PK A: 0.38 MV Decel Time: 242.00 E/A: 2.00 E'Lateral: 8.38 E'Medial: 5.98 E/E' Med: 12.30 E/E' Lat: 8.80 PHT: 71.00 MVA PHT: 3.10 Decel Garden: 3.04 LVOT LVOT Pk Carlos: 1.03 LVOT Mn Carlos: 0.62 LVOT VTI: 0.20 LVOT Pk Grad: 4.00 LVOT Mn Grad: 2.00 LVOT Diam: 2.40 LVOT Area: 4.52 Diastolic Function MV Pk E: 0.74 MV Pk A: 0.38 E/A: 2.00 E'Medial: 5.98 E/E' Med: 12.30 E' Laterial: 8.38 E/E' Lat: 8.80 Tricuspid Valve RA Press: 3.00 Updated in Other Vendor System with Status of Final Christopher Mclean MD electronically signed on 12/01/2023 12:19:18 PM with status of Final
== END ==
LOC: HO.CARD 07:54
PROVIDERS: PCP Family Medicine; Visit Provider Nurse Practitioner Family
DX: I50.21 Acute systolic (congestive) heart failure (principal)
CPT/HCPCS: 93308; Q9957

== ENCOUNTER → 2023-11-30 07:56 | Outpatient (BNV) | payer OTHER, SELFPAY | PROVIDERS: PCP Family Medicine; Visit Provider Internal Medicine Cardiovascular Disease | DX: I50.21 Acute systolic (congestive) heart failure (principal) | CPT/HCPCS: 93308; 93321 ==

== ENCOUNTER 2024-02-25 15:21 | Outpatient (AMB) | payer OTHER, SELFPAY ==
[2024-02-25 15:39] VITALS: BP 120/64; PULSE 67; BMI 30.1
--- NOTE | 2024-02-25 15:39 | A.OFFVIS_ITS ---
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 Accompanied by: Spouse Allergies No Known Allergies Allergy (Verified 11/09/23 08:25) Medication List - Last Reconciled 02/25/24 by Stalney Perea MD amiodarone 200 mg PO DAILY 30 days apixaban (Eliquis) 5 mg PO BID coenzyme Q10 (CoQ-10) 200 mg PO DAILY cyanocobalamin (vitamin B-12) 1,000 mcg PO DAILY empagliflozin (Jardiance) 10 mg PO DAILY furosemide 20 mg PO DAILY metoprolol succinate ER 25 mg See Protocol PO DAILY 30 days multivitamin 1 tab PO DAILY sacubitril-valsartan 49-51 mg (Entresto) 1 tab PO BID spironolactone 12.5 mg See Protocol PO DAILY HPI Comments Details: [age] year gentleman who is here for follow-up. He has history of severe cardiomyopathy in the setting of AFib with RVR and alcohol use. He has been completely abstinent from alcohol. He was cardioverted and started on amiodarone and since then he has been in sinus rhythm. His ejection fraction has improved 45 to 50%. Clinically has been doing well. No chest pain or shortness of breath. Ablation was previously discussed with the patient but he refused it. I discussed with him again today and he is on interested in going for ablation. He is taking rest of the medications regularly. No medication side effects currently. No bleeding concerns. [facility] Medical History History of cardioversion HTN (hypertension) Social History Household Members: Spouse Housing: House Do you presently have visiting nurse or other home services: No Alcohol intake: current Alcohol intake frequency: 3 or more drinks per day Alcohol type: beer Patient Tobacco Use Status: Never used Tobacco service: No Review of Systems Const Denies chills, Denies fatigue, Denies fever(s), Denies frequent falls, Denies weakness, Denies weight gain and Denies weight loss ENT Denies dizziness Card Denies chest pain, Denies leg edema, Denies lightheadedness, Denies palpitations, Denies dyspnea and Denies dyspnea on exertion Resp Denies cough, Denies dyspnea and Denies dyspnea on exertion GI Denies hematochezia Musc Denies abnormal gait, Denies muscle weakness, Denies numbness, Denies radiating pain into limb and Denies tingling Neuro Denies abnormal gait, Denies dizziness, Denies frequent falls, Denies numbness, Denies tingling and Denies weakness Endo Denies fatigue and Denies palpitations Physical Exam Vital Signs: Last Vital Signs Pulse 67 02/25/24 15:39 BP 120/64 02/25/24 15:39 BMI result Body Mass Index 30.1 GENERAL APPEARANCE: in no acute distress, pleasant. NECK: no carotid bruit, no jugular venous distention. SKIN: no suspicious lesions, warm and dry. HEART: no murmurs, regular rate and rhythm. LUNGS: clear to auscultation bilaterally. ABDOMEN: soft, nontender. EXTREMITIES: no edema. PERIPHERAL PULSES: equal. NEUROLOGIC: No gross deficits, AAO X 3 Office Procedures EKG Details: Sinus rhythm 67 beats per minute, inferior ST-T wave changes. Lateral ST-T wave changes. QTC 464 milliseconds. [id number], Complete Assessment & Plan Assessment & Plan (1) Cardiomyopathy: Code(s): I42.9 - Cardiomyopathy, unspecified Category: Medical (2) PAF (paroxysmal atrial fibrillation): Code(s): I48.0 - Paroxysmal atrial fibrillation Category: Medical Plan 58 year gentleman with background of cardiomyopathy, atrial fibrillation and alcohol use presenting for follow-up. He has stopped drinking alcohol completely. He has been in sinus rhythm on amiodarone. He is on Eliquis for anticoagulation. Eliquis is lung control for him. His CHADS-VASc score is 2 due to hypertension and heart failure. We discussed in detail about options for rhythm control. I again discussed with him about ablation but he and his refused ablation. I think amiodarone in a 58-year-old gentleman he is not a viable option long-term. I am stopping the amiodarone. We will start him on flecainide 50 mg twice a day in 10 days. He will come back next day for EKG. Follow-up in few months. Thank you for allowing me to participate in the care of your patient. Please feel free to contact me if you have any questions. Medications: New flecainide Start taking from 03/06/24 50 mg PO Q12H 60 tabs 6RF I48.0 - Paroxysmal atrial fibrillation Discontinued amiodarone Discontinued Reason: Doctor's Order 200 mg PO DAILY 30 days 30 tabs 5RF Coding Level of Care Code Est Pt Level 5 (92557) Diagnoses Cardiomyopathy I42.9 PAF (paroxysmal atrial fibrillation) I48.0 CPT Codes EKG - CPT: 22906-[id number], Complete ([id number])
== END 2024-02-25 16:15 | disposition home or self-care (01) ==
PROVIDERS: PCP Family Medicine; Visit Provider Internal Medicine Cardiovascular Disease
DX: I42.9 Cardiomyopathy, unspecified (principal); I48.0 Paroxysmal atrial fibrillation; R94.31 Abnormal electrocardiogram [ECG] [EKG]
CPT/HCPCS: 93010; 99215

== ENCOUNTER → 2024-02-25 15:21 | Outpatient (BNVA) | payer OTHER, SELFPAY | PROVIDERS: PCP Family Medicine; Visit Provider Internal Medicine Cardiovascular Disease | DX: I42.9 Cardiomyopathy, unspecified (principal); I48.0 Paroxysmal atrial fibrillation; R94.31 Abnormal electrocardiogram [ECG] [EKG]; I45.81 Long QT syndrome | CPT/HCPCS: 93005; 99212 ==

== ENCOUNTER → 2024-03-07 08:26 | Outpatient (BNVA) | payer OTHER, SELFPAY | PROVIDERS: PCP Family Medicine; Visit Provider Internal Medicine Cardiovascular Disease ==

== ENCOUNTER 2024-06-23 15:14 | Outpatient (AMB) | payer OTHER, SELFPAY ==
--- NOTE | 2024-06-23 15:24 | MHC.OFFVIS ---
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 Accompanied by: Self / Same As Patient Allergies No Known Allergies Allergy (Verified 11/09/23 08:25) Medication List - Last Reconciled 06/23/24 by Stanley Perea MD apixaban (Eliquis) 5 mg PO BID coenzyme Q10 (CoQ-10) 200 mg PO DAILY cyanocobalamin (vitamin B-12) 1,000 mcg PO DAILY empagliflozin (Jardiance) 10 mg PO DAILY flecainide 50 mg PO Q12H furosemide 20 mg PO DAILY metoprolol succinate ER 25 mg PO DAILY multivitamin 1 tab PO DAILY sacubitril-valsartan 49-51 mg (Entresto) 1 tab PO BID spironolactone 12.5 mg (1/2 x 25 mg) PO DAILY HPI Comments Details: [age] year gentleman who is here for follow-up. He has history of severe cardiomyopathy in the setting of AFib with RVR and alcohol use. He has been completely abstinent from alcohol. He was cardioverted and started on amiodarone and since then he has been in sinus rhythm. His ejection fraction has improved 45 to 50%. Clinically has been doing well. No chest pain or shortness of breath. Ablation was previously discussed with the patient but he refused it. I discussed with him again today and he is on interested in going for ablation. He is taking rest of the medications regularly. No medication side effects currently. No bleeding concerns. 06/23/2024: He is back for follow-up. He has been doing well. Taking flecainide at this stage. In sinus rhythm. COUNTS INCLUDE 234 BEDS AT THE [facility] Medical History History of cardioversion HTN (hypertension) Social History Household Members: Spouse Housing: House Do you presently have visiting nurse or other home services: No Alcohol intake: current Alcohol intake frequency: 3 or more drinks per day Alcohol type: beer Patient Tobacco Use Status: Never used Tobacco service: No Review of Systems Const Denies chills, Denies fatigue, Denies fever(s), Denies frequent falls, Denies weakness, Denies weight gain and Denies weight loss ENT Denies dizziness Card Denies chest pain, Denies leg edema, Denies lightheadedness, Denies palpitations, Denies dyspnea and Denies dyspnea on exertion Resp Denies cough, Denies dyspnea and Denies dyspnea on exertion GI Denies hematochezia Musc Denies abnormal gait, Denies muscle weakness, Denies numbness, Denies radiating pain into limb and Denies tingling Neuro Denies abnormal gait, Denies dizziness, Denies frequent falls, Denies numbness, Denies tingling and Denies weakness Endo Denies fatigue and Denies palpitations Physical Exam Vital Signs: Last Vital Signs Pulse 61 06/23/24 15:28 BP 110/66 06/23/24 15:28 BMI result Body Mass Index 30.5 GENERAL APPEARANCE: in no acute distress, pleasant. NECK: no carotid bruit, no jugular venous distention. SKIN: no suspicious lesions, warm and dry. HEART: no murmurs, regular rate and rhythm. LUNGS: clear to auscultation bilaterally. ABDOMEN: soft, nontender. EXTREMITIES: no edema. PERIPHERAL PULSES: equal. NEUROLOGIC: No gross deficits, AAO X 3 Office Procedures EKG Details: Sinus rhythm 61 beats per minute, normal axis, inferior and lateral ST-T wave abnormality-consider ischemia (old changes), QTC 460 milliseconds [id number], Complete Assessment & Plan Assessment & Plan (1) Cardiomyopathy: Code(s): I42.9 - Cardiomyopathy, unspecified Category: Medical (2) PAF (paroxysmal atrial fibrillation): Code(s): I48.0 - Paroxysmal atrial fibrillation Category: Medical Plan 58 year gentleman with background of cardiomyopathy, atrial fibrillation and alcohol use presenting for follow-up. He has stopped drinking alcohol completely. He has been in sinus rhythm. He was previously on amiodarone but did not agree to ablation and we decided not to leave on amiodarone due to young age. He is on flecainide now. Continues to be in sinus rhythm. On long-term anticoagulation with Eliquis. Clinically stable and doing well. Same medications for now. Thank you for allowing me to participate in the care of your patient. Please feel free to contact me if you have any questions. Orders: Orders CA echo transthorac w con Today I42.9 - Cardiomyopathy, unspecified Coding Level of Care Code Est Pt Level 4 (91552) Diagnoses Cardiomyopathy I42.9 PAF (paroxysmal atrial fibrillation) I48.0 CPT Codes EKG - CPT: 16119-[id number], Complete ([id number])
[2024-06-23 15:28] VITALS: BP 110/66; PULSE 61; BMI 30.5
--- OUTSIDE RECORDS SUMMARY | 2024-06-23 16:50 | XMS_ITS | Encounter Summary ---
Author Organization [facility] Address [address] [place] [address] Care Team Providers Care Waredresser Name Role Phone Lavon Alvarez MD Primary Care Provider Unavailable Pooja Owen MD Primary Care Provider [phone] Encounter Details Date Type Department Care Team Description 01/24/2016 Hospital Medical Records [address] [place] [address] Abdon Duarte MD, MD Social History Tobacco Use Types Packs/Day Years Used Date Smoking Tobacco: Never Smokeless Tobacco: Never Alcohol Use Standard Drinks/Week Comments Not Currently 0 (1 standard drink = 0.6 oz pur e alcohol) Alcohol Habits Answer Date Recorded How often do you have a drin k containing alcohol? Never 01/16/2022 How many drinks containing a lcohol do you have on a typical day when you are drinking? Patient does not drink 01/16/2022 How often do you have six or more drinks on one occasion? Not asked Social Isolation Answer Date Recorded In a typical week, how many times do you talk on the phone with family, friends, or neighbors? Three times a week 01/16/2022 How often do you get togethe r with friends or relatives? Three times a week 01/16/2022 How often do you attend chur ch or anglican services? Never 01/16/2022 Do you belong to any clubs o r organizations such as scientology groups, unions, fraternal or athletic groups, or school groups? No 01/16/2022 How often do you attend meet ings of the clubs or organizations you belong to? Never 01/16/2022 Are you now , , , , never or living with a partner? 01/16/2022 Physical Activity Answer Date Recorded On average, how many days pe r week do you engage in moderate to strenuous exercise (like walking fast, running, jogging, dancing, swimming, biking, or other activities that cause a light or heavy sweat)? 4 days 01/16/2022 On average, how many minutes do you engage in exercise at this level? 30 min 01/16/2022 Stress Answer Date Recorded Do you feel stress - tense, restless, nervous, or anxious, or unable to sleep at night because your mind is troubled all the time - these days? Not at all 01/16/2022 Intimate Partner Violence Answer Date R ecorded Within the last year, have y ou been afraid of your partner or ex-partner? No 01/16/2022 Within the last year, have y ou been humiliated or emotionally abused in other ways by your partner or ex-partner? No Within the last year, have y ou been kicked, hit, slapped, or otherwise physically hurt by your partner or ex-partner? No 01/16/2022 Within the last year, have y ou been raped or forced to have any kind of sexual activity by your partner or ex-partner? No 01/16/2022 Food Insecurity Answer Date Recorded Within the past 12 months, y ou worried that your food would run out before you got money to buy more. Never true 01/16/2022 Within the past 12 months, t he food you bought just didn't last and you didn't have money to get more. Never true 01/16/2022 Transportation Needs Answer Date Record ed In the past 12 months, has l ack of transportation kept you from medical appointments or from getting medications? No 12/21 In the past 12 months, has l ack of transportation kept you from meetings, work, or getting things needed for daily living? No 01/16/2022 Housing Stability Answer Date Recorded In the last 12 months, was t here a time when you were not able to pay the mortgage or rent on time? No 01/16/2022 In the last 12 months, how many places have you lived? Not asked In the last 12 months, was t here a time when you did not have a steady place to sleep or slept in a fdc (including now)? No 01/16/2022 Sex Assigned at Date Recorded Not on file Job Start Date Occupation Industry Not on file Not on file Not on file documented as of this encounter Plan of Treatment Not on file documented as of this encounter Visit Diagnoses Not on filedocumented in this encounter Care Teams Waredresser Relationship Specialty Start Date End Date Lavon Alvarez MD PCP - General Internal Medicine 11/12/1402/19 Pooja Owen MD [address] [place] [id number] PCP - General Internal Medicine 03/04/21 Stanley Perea Specialist Cardiology 05/24/23 documented as of this encounter
--- OUTSIDE RECORDS SUMMARY | 2024-06-23 16:50 | XMS_ITS | Encounter Summary ---
Author Organization [facility] Address [address] [place] [address] Care Team Providers Care Tank Pumper Panelboard Name Role Phone Lavon Alvarez MD Primary Care Provider Unavailable Pooja Owen MD Primary Care Provider [phone] Reason for Visit * Reason Comments E-prescribe Rx Request Encounter Details Date Type Department Care Team Description 09/29/2018 Refill Adult Medicine [address] [address] Sachin Costa PA E-prescribe Rx Request Social History Tobacco Use Types Packs/Day Years Used Date Smoking Tobacco: Never Smokeless Tobacco: Never Alcohol Use Standard Drinks/Week Comments Yes 0 (1 standard drink = 0.6 oz pur e alcohol) 4 pack a twice a week Alcohol Habits Answer Date Recorded How often [...] week 01/16/2022 How often do you attend [facility] or restorationism services? Never 01/16/2022 Do you belong to any clubs o r organizations such as sikh groups, unions, fraternal or athletic groups, or [...] place to sleep or slept in a long-term (including now)? No 01/16/2022 Sex Assigned at Date Recorded Not on file Job Start Date Occupation Industry Not on file Not on file Not on file documented as of this encounter Miscellaneous Notes * Telephone Encounter - Sarah King - 09/30/2018 3:03 PM EDT Patient would like script to be: MAILED TO HOME ADDRESS WHEN WAS THE PATIENT'S LAST APPOINTMENT IN ADULT MEDICINE? 03/12/2018 WHEN WAS THE LAST TIME THE PATIENT SAW THEIR PCP? 10/03/2017 Does patient have an upcoming appointment? [facility] to refill request. Appt due 09/09/2018 (THE MEDICATION REQUESTED IS ON THE MED LIST ABOVE) All of the medications requested were on the CURRENT MEDS list Did you check the Pharmacy information above?: YES Patient wants: 30 -day supply Is this a mail order prescription request ? NO If the refill is from a FAXED refill request what is the RX # listed on the fax? N/A Patients current insurance carrier is: Payor: [employer] / Plan: DIRECT [employer] $3500 $35/$75/ Product Type: HMO [id number] documented in this encounter Plan of Treatment Not on file documented as of this encounter Visit Diagnoses Not on filedocumented in this encounter Care Teams Tank Pumper Panelboard Relationship Specialty Start Date End Date Lavon Alvarez MD PCP - General Internal Medicine 11/12/1402/19 Pooja Owen MD [address] [place] [address] PCP - General Internal Medicine 03/04/21 Stanley Perea Specialist Cardiology 05/24/23 documented as of this encounter
--- OUTSIDE RECORDS SUMMARY | 2024-06-23 16:50 | XMS_ITS | Encounter Summary ---
Author Organization [facility] Address [address] [place] [address] Care Team Providers Care Gis Physical Scientist Name Role Phone Pooja Owen MD Primary Care Provider + [phone] Encounter Details Date Type Department Care Team Description 06/26/2023 Clinical Training Specialist Report Medical Records [address] [place] [address] Jessica Chanel FNP Social History Tobacco Use Types Packs/Day Years [...] often do you attend chur ch or catholic services? Never 01/16/2022 Do you belong to any clubs o r organizations such as baptism groups, unions, fraternal or athletic groups, or [...] place to sleep or slept in a group home (including now)? No 01/16/2022 Sex Assigned at Date Recorded Not on file Job Start Date Occupation Industry Not on file Not on file Not on file documented as of this encounter Plan of Treatment Not on file documented as of this encounter Visit Diagnoses Not on filedocumented in this encounter Care Teams Gis Physical Scientist Relationship Specialty Start Date End Date Pooja Owen MD [facility] [place] [address] PCP - General Internal Medicine 03/04/21 Stanley Perea Specialist Cardiology 05/24/23 documented as of this encounter
--- OUTSIDE RECORDS SUMMARY | 2024-06-23 16:50 | XMS_ITS | Encounter Summary ---
Author Organization [facility] Address [address] [place] [address] Care Team Providers Care Field Research Assistant Name Role Phone Lavon Alvarez MD Primary Care Provider Unavailable Pooja Owen MD Primary Care Provider [phone] Encounter Details Date Type Department Care Team Description 11/02/2017 Snuff Box Finisher Report Medical Records [address] [place] [address] Abstract, Provider Social History Tobacco Use Types Packs/Day Years [...] often do you attend chur ch or cheondoism services? Never 01/16/2022 Do you belong to any clubs o r organizations such as quaker groups, unions, fraternal or athletic groups, or [...] place to sleep or slept in a usp (including now)? No 01/16/2022 Sex Assigned at Date Recorded Not on file Job Start Date Occupation Industry Not on file Not on file Not on file documented as of this encounter Plan of Treatment Not on file documented as of this encounter Visit Diagnoses Not on filedocumented in this encounter Care Teams Field Research Assistant Relationship Specialty Start Date End Date Lavon Alvarez MD PCP - General Internal Medicine 11/12/1402/19 Pooja Owen MD [address] [place] [address] PCP - General Internal Medicine 03/04/21 Stanley Perea Specialist Cardiology 05/24/23 documented as of this encounter
--- OUTSIDE RECORDS SUMMARY | 2024-06-23 16:50 | XMS_ITS | Encounter Summary ---
Author Organization [facility] Address [address] [place] [address] Care Team Providers Care Nut Culler Name Role Phone Lavon Alvarez MD Primary Care Provider Unavailable Pooja Owen MD Primary Care Provider [phone] Reason for Referral * EXTERNAL (Routine) - Authorized/Booked Specialty Diagnoses / Procedures Referred By Saskia vallejo Referred To Contact Physical Therapy Procedures REFERRAL TO PHYSICAL THERAPY Chirag Kerns PA-C [address] [place] [address] [facility] Referral ID Status Reason Start Date Expiration Date V isits Requested Visits Authorized SEE NOTE Authorized/B ooked 11/29/2017 03/01/2018 1 1 Reason for Visit * Reason Onset Date Comments Division Supervisor Feedback 11/29/2017 PT Encounter Details Date Type Department Care Team Description 11/29/2017 [place] [address] Chirag Kerns PA-C [address] [place] [address] Division Supervisor Feedback (PT) Social History Tobacco Use Types Packs/Day Years [...] week 01/16/2022 How often do you attend [facility] or samaritan services? Never 01/16/2022 Do you belong to any clubs o r organizations such as congregation groups, unions, fraternal or athletic groups, or [...] place to sleep or slept in a snf (including now)? No 01/16/2022 Sex Assigned at Date Recorded Not on file Job Start Date Occupation Industry Not on file Not on file Not on file documented as of this encounter Miscellaneous Notes * Telephone Encounter - Chirag Kerns PA-C - 11/29/2017 2:35 PM EDT signed * Telephone Encounter - Sherly Ahcarya - 11/29/2017 8:45 AM EDT [facility] called requesting a new PT order as the current order on file is past 30days. Please review and sign when able. Thank you, Sherly Referrals Coordinator documented in this encounter Plan of Treatment Not on file documented as of this encounter Visit Diagnoses Not on filedocumented in this encounter Care Teams Nut Culler Relationship Specialty Start Date End Date Lavon Alvarez MD PCP - General Internal Medicine 11/12/1402/19 Pooja Owen MD [address] [place] [address] PCP - General Internal Medicine 03/04/21 Stanley Perea Specialist Cardiology 05/24/23 documented as of this encounter
--- OUTSIDE RECORDS SUMMARY | 2024-06-23 16:50 | XMS_ITS | Encounter Summary ---
Author Organization [facility] Address [address] [place] [address] Care Team Providers Care Insurance Assistant Name Role Phone Pooja Owen MD Primary Care Provider + [phone] Reason for Visit * Reason Comments E-prescribe Rx Request Encounter Details Date Type Department Care Team Description 06/06/2021 Refill Adult Medicine [address] [address] Hina Weaver NP E-prescribe Rx Request Social History Tobacco Use [...] often do you attend chur ch or rastafarian services? Never 01/16/2022 Do you belong to any clubs o r organizations such as christianity groups, unions, fraternal or athletic groups, or [...] place to sleep or slept in a fci (including now)? No 01/16/2022 Sex Assigned at Date Recorded Not on file Job Start Date Occupation Industry Not on file Not on file Not on file documented as of this encounter Miscellaneous Notes * Telephone Encounter - Pooja Owen MD - 06/07/2021 11:27 AM EDT Pt is over due for a visit. Will not refill gabapentin, robaxin until he is seen by ME on 06/13/21. * Telephone Encounter - Faustina Donald PA-C - 06/07/2021 10:[address] Tabor and refill staff: Support providers will not sign for Remeron, gabapentin or Robaxin. You can run this by a covering clinical provider but I think this patient is going to have to wait to see his new PCP to see if they will continue any of these medications. Patient last seen in medicine office 08/30/2020 for med review. I would strongly suggest that office visit note be reviewed by new PCP who is seeing patient on 06/13/2021. I will forward this message to the new PCP as an FYI.Multiple red flags. Thank you * Telephone Encounter - Ilsa Shook M.A. - 06/07/2021 9:43 AM EDT PCP has not established with new PCP * Telephone Encounter - Ilsa Shook M.A. - 06/07/2021 9:42 AM EDT BP Readings from Last 5 Encounters: 12/06/20 138/76 11/01/20 128/78 08/30/20 (!) 140/70 08/03/20 120/60 05/08/19 134/68 Lab Results Component Value Date NA 135 10/11/2020 K 3.4 10/11/2020 CO2 26 10/11/2020 CL 100 10/11/2020 BUN 16 10/11/2020 CREAT 1.04 10/11/2020 GLU 164 10/11/2020 CA 8.8 10/11/2020 GFR > 60 10/11/2020 * Telephone Encounter - Ilsa Shook M.A. - 06/06/2021 4:52 PM EDT Last appt- 08/30/20 Next appt- 06/13/21 documented in this encounter Plan of Treatment Not on file documented as of this encounter Visit Diagnoses Not on filedocumented in this encounter Care Teams Insurance Assistant Relationship Specialty Start Date End Date Pooja Owen MD [address] [place] [address] PCP - General Internal Medicine 03/04/21 Stanley Perea Specialist Cardiology 05/24/23 documented as of this encounter
--- OUTSIDE RECORDS SUMMARY | 2024-06-23 16:50 | XMS_ITS | Encounter Summary ---
Author Organization [facility] Address [address] [place] [address] Care Team Providers Care Exhibition Carver Name Role Phone Lavon Alvarez MD Primary Care Provider Unavailable Pooja Owen MD Primary Care Provider [phone] Reason for Visit * Reason Comments E-prescribe Rx Request Encounter Details Date Type Department Care Team Description 07/26/2020 Refill Adult Medicine [address] [address] Lavon Alvarez MD E-prescribe Rx Request Social History Tobacco Use [...] 01/16/2022 How often do you attend chur or mu-ism services? Never 01/16/2022 Do you belong to any clubs o r organizations such as catholic groups, unions, fraternal or athletic groups, or [...] place to sleep or slept in a senior living (including now)? No 01/16/2022 Sex Assigned at Date Recorded Not on file Job Start Date Occupation Industry Not on file Not on file Not on file documented as of this encounter Miscellaneous Notes * Telephone Encounter - Ilsa Shook M.A. - 07/27/2020 9:25 AM EDT Return in about 5 months (around 06/18/2020) for f/u htn, f/u member of care team Needs appt * Telephone Encounter - Susie Perez - 07/26/2020 4:46 PM EDT Patient would like script to be: E-PRESCRIBED/FAXED TO PHARMACY WHEN WAS THE PATIENT'S LAST APPOINTMENT IN ADULT MEDICINE? 01/19/2020 WHEN WAS THE LAST TIME THE PATIENT SAW THEIR PCP? Same as above Does patient have an upcoming appointment? No-patient refused appointment, will call back to book appointment (THE MEDICATION REQUESTED IS ON THE MED [...] N/A Patients current insurance carrier is: Payor: [facility] PLAN / Plan: [facility] TYPE III $15/$22 / Product Type: HMO [id number] documented in this encounter Plan of Treatment Not on file documented as of this encounter Visit Diagnoses Not on filedocumented in this encounter Care Teams Exhibition Carver Relationship Specialty Start Date End Date Lavon Alvarez MD PCP - General Internal Medicine 11/12/1402/19 Pooja Owen MD [address] [place] [address] PCP - General Internal Medicine 03/04/21 Stanley Perea Specialist Cardiology 05/24/23 documented as of this encounter
--- OUTSIDE RECORDS SUMMARY | 2024-06-23 16:50 | XMS_ITS | Encounter Summary ---
Author Organization [facility] Address [address] [place] [address] Care Team Providers Care Stockroom Supervisor Name Role Phone Lavon Alvarez MD Primary Care Provider Unavailable Pooja Owen MD Primary Care Provider [phone] Reason for Visit * Reason Comments E-prescribe Rx Request Encounter Details Date Type Department Care Team Description 05/07/2019 Refill Adult Medicine - [place] [address] [place] [address] Stephanie Robert PA-C [address] [place] [address] E-prescribe Rx Request Social History Tobacco Use [...] week 01/16/2022 How often do you attend [facility] or gnosticist services? Never 01/16/2022 Do you belong to any clubs o r organizations such as spiritism groups, unions, fraternal or athletic groups, or [...] place to sleep or slept in a [place] [facility] (including now)? No 01/16/2022 Sex Assigned at Date Recorded Not on file Job Start Date Occupation Industry Not on file Not on file Not on file documented as of this encounter Miscellaneous Notes * Telephone Encounter - Rogelio Orozco - 05/07/2019 3:51 PM EDT Appt booked 05/08/19 * Telephone Encounter - Opal Rodriguez M.A. - 05/07/2019 3:48 PM EDT L.O.V: 10/14/2018 N.O.V: no future appt. If we can book patients 2 months out for those who do not have appt. And need them for med refills.we will review if need to change appt. If virous has not resolved. Thank you documented in this encounter Plan of Treatment Not on file documented as of this encounter Visit Diagnoses Not on filedocumented in this encounter Care Teams Stockroom Supervisor Relationship Specialty Start Date End Date Lavon Alvarez MD PCP - General Internal Medicine 11/12/1402/19 Pooja Owen MD [facility] [place] [address] PCP - General Internal Medicine 03/04/21 Stanley Perea Specialist Cardiology 05/24/23 documented as of this encounter
--- OUTSIDE RECORDS SUMMARY | 2024-06-23 16:50 | XMS_ITS | Encounter Summary ---
Author Organization [facility] Address [address] [place] [address] Care Team Providers Care Equipment Man Name Role Phone Pooja Owen MD Primary Care Provider + [phone] Encounter Details Date Type Department Care Team Description 05/14/2023 Hospital Medical Records [address] [place] [address] Alec Tolliver Social History Tobacco Use Types Packs/Day Years [...] often do you attend chur ch or quaker services? Never 01/16/2022 Do you belong to any clubs o r organizations such as judaism groups, unions, fraternal or athletic groups, or [...] place to sleep or slept in a correction (including now)? No 01/16/2022 Sex Assigned at Date Recorded Not on file Job Start Date Occupation Industry Not on file Not on file Not on file documented as of this encounter Plan of Treatment Not on file documented as of this encounter Visit Diagnoses Not on filedocumented in this encounter Care Teams Equipment Man Relationship Specialty Start Date End Date Pooja Owen MD [facility] [place] [address] PCP - General Internal Medicine 03/04/21 Stanley Perea Specialist Cardiology 05/24/23 documented as of this encounter
--- OUTSIDE RECORDS SUMMARY | 2024-06-23 16:50 | XMS_ITS | Encounter Summary ---
Author Organization [facility] Address [address] [place] [address] Care Team Providers Care Gas Prover Name Role Phone Lavon Alvarez MD Primary Care Provider Unavailable Pooja Owen MD Primary Care Provider [phone] Reason for Visit * Reason Onset Date Comments refill request 03/24/2020 Encounter Details Date Type Department Care Team Description 03/24/2020 Refill Adult Medicine [address] [address] Lavon Alvarez MD refill request Social History Tobacco Use Types Packs/Day Years [...] How often do you attend chur or tenriism services? Never 01/16/2022 Do you belong to any clubs o r organizations such as hinduism groups, unions, fraternal or athletic groups, or [...] place to sleep or slept in a [facility] (including now)? No 01/16/2022 Sex Assigned at Date Recorded Not on file Job Start Date Occupation Industry Not on file Not on file Not on file documented as of this encounter Miscellaneous Notes * Telephone Encounter - Sally Muñoz - 03/24/2020 3:02 PM EST Patient would like script to be: E-PRESCRIBED/FAXED TO PHARMACY When was the patients last office visit in Adult Medicine?: 01/19/2020 When was the last time the patient saw their PCP? Same as above Does patient have an upcoming appointment? Call received from pharm-appt not made (THE MEDICATION IS NOT ON THE MED LIST AND IS IDENTIFIED BELOW): {MED LIST:57264) Med name: Flexeril Dosage: 10mg # of tablets: Local pharmacy with request for 30 -day supply Instructions: Did you check the pharmacy information above?: YES Patients current insurance carrier: Payor: [facility] [employer] PLAN / Plan: [facility] $3500 $35/$75 / Product Type: HMO [id number] documented in this encounter Plan of Treatment Not on file documented as of this encounter Visit Diagnoses Not on filedocumented in this encounter Care Teams Gas Prover Relationship Specialty Start Date End Date Lavon Alvarez MD PCP - General Internal Medicine 11/12/1402/19 Pooja Owen MD [address] [place] [address] PCP - General Internal Medicine 03/04/21 Stanley Perea Specialist Cardiology 05/24/23 documented as of this encounter
--- OUTSIDE RECORDS SUMMARY | 2024-06-23 16:50 | XMS_ITS | Encounter Summary ---
Author Organization [facility] Address [address] [place] [address] Care Team Providers Care Paramedic Instructor Name Role Phone Lavon Alvarez MD Primary Care Provider Unavailable Pooja Owen MD Primary Care Provider [phone] Reason for Visit * Reason Comments E-prescribe Rx Request Encounter Details Date Type Department Care Team Description 10/25/2018 Refill Adult Medicine [address] [address] Ramona Reyes PA-C E-prescribe Rx Request Social History Tobacco Use [...] How often do you attend chur or gnosticism services? Never 01/16/2022 Do you belong to any clubs o r organizations such as pentecostalism groups, unions, fraternal or athletic groups, or [...] encounter Miscellaneous Notes * Telephone Encounter - Amna Rojas - 10/30/2018 2:42 PM EDT Lor calling to request prednisone again, patient is requesting it. * Telephone Encounter - Carly Oglesby L.P.N. - 10/28/2018 11:41 AM EDT Please triage thanks * Telephone Encounter - Sarah King - 10/28/2018 9:20 AM EDT Patient would like script to be: E-PRESCRIBED/FAXED TO PHARMACY WHEN WAS THE PATIENT'S LAST APPOINTMENT IN ADULT MEDICINE? 10/14/2018 WHEN WAS THE LAST TIME THE PATIENT SAW THEIR PCP? 10/03/2017 Does patient have an upcoming appointment? NO (THE MEDICATION REQUESTED IS ON THE MED [...] N/A Patients current insurance carrier is: Payor: [facility] PLAN / Plan: DIRECT [employer] $3500 $35/$75/ Product Type: HMO [id number] documented in this encounter Plan of Treatment Not on file documented as of this encounter Visit Diagnoses Not on filedocumented in this encounter Care Teams Paramedic Instructor Relationship Specialty Start Date End Date Lavon Alvarez MD PCP - General Internal Medicine 11/12/1402/19 Pooja Owen MD [address] [place] [address] PCP - General Internal Medicine 03/04/21 Stanley Perea Specialist Cardiology 05/24/23 documented as of this encounter
--- OUTSIDE RECORDS SUMMARY | 2024-06-23 16:50 | XMS_ITS | Clinical Summary ---
Author Organization [facility] Address [address] [place] [address] Care Team Providers Care Landscape Nurseryman Name Role Phone Pooja Owen MD Primary Care Provider [phone] Allergies Active Allergy Reactions Severity Noted Date Comments Seasonal Allergies 06/13/2021 Medications Medication Sig Dispensed Refills Start Date End Date Status amiodarone (PACERONE) 200 MG tablet Take 1 Tablet by mouth daily. Afib- per cardio 30 Tablet 5 05/24/2023 Active Apixaban (Eliquis) 5 MG Tab Take 1 Tablet by mouth 2 times daily. Per [facility]. Dx afib 60 Tablet 0 05/24/2023 Active Empagliflozin (Jardiance) 10 MG Tab Take 1 Tablet by mouth daily. Dx HFrEF per [facility] 30 Tablet 0 05/24/2023 Active furosemide (Lasix) 20 MG tablet Take 1 Tablet by mouth daily. HFrEF per [facility] 30 Tablet 5 05/24/2023 Active Sacubitril-Valsartan (Entresto) 24-26 MG Tab Take 1 Tablet by mouth 2 times daily. Per [facility] 60 Tablet 0 05/24/2023 Active metoprolol (Toprol XL) 25 MG 24 hr tablet Take 0.5 Tablets by mouth daily. Per [facility] Dx afib 15 Tablet 11 05/24/2023 Active spironolactone (ALDACTONE) 25 MG tablet Take 0.5 Tablets by mouth daily. Per [facility] Dx HFrEF 15 Tablet 5 05/24/2023 Active vitamin B-12 (CYANOCOBALAMIN) 1000 MCG tablet Take 1 Tablet by mouth daily. 0 Active Multiple Vitamin (MULTI-DAY OR) Take by mouth. 0 Active ibuprofen (ADVIL,MOTRIN) 600 MG tabletIndications:Lum bar spondylosis Take 1 Tablet by mouth 2 times daily as needed for Pain. 30 Tablet 2 07/03/2023 Active methylPREDNISolone (Medrol) 4 MG Tablet Therapy PackIndications:Poiso n amarilis dermatitis Take 1 Package by mouth See Admin Instructions. 1 Each 0 07/03/2023 Active hydrOXYzine (ATARAX) 25 MG tabletIndications:Poi son amarilis dermatitis Take 1 Tablet by mouth 3 times daily as needed for Itching. 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 Overview: Recent flare 01/2017 s/p Xray, follows with rheumatology on indomethacin Insomnia 05/23/2016 Non morbid obesity 02/03/2016 Essential hypertension 04/29/2015 Overview: ASCVD 4.1% Epidermal inclusion cyst 04/26/2015 Overview: Right side of the neck as per CAT scan Immunizations Name Administration Dates Next Due COVID-19 (Moderna) 06/17/2020 COVID-19 (Moderna) PT Reported 07/15/2020,2020 Flu (Generic) 11/03/2015 Influenza (> 6 Months) 11/03/2015 Tdap 10/03/2017 Family History Medical History Relation Name Comments No Known Problems Brother No Known Problems Father Arthritis Mother Asthma Mother htn Diabetes Sister No Known Problems Son Diabetes Uncle htn Relation Name Status Comments Brother Alive Father Maternal Grandfather Maternal Grandmother Mother (Age 95) Paternal Grandfather Paternal Grandmother Sister Alive Son Alive Uncle Social History Tobacco Use Types Packs/Day Years Used Date Smoking Tobacco: Never Smokeless Tobacco: Never Tobacco Cessation:Counseling Given: Not Answered Alcohol Use Standard Drinks/Week Comments Not Currently [...] How often do you attend [facility] or [facility] services? Never 01/16/2022 Do you belong to any clubs o r organizations such as restoration groups, unions, fraternal or athletic groups, or [...] file Not on file Not on file Last Filed Vital Signs Vital Sign Reading Time Taken Comments Blood Pressure 112/72 07/03/2023 3:10 PM EDT Pulse 74 07/03/2023 3:10 PM EDT Temperature 36.4 ??C (97.5 ??F) 07/03/2023 3:10 PM ED T Respiratory Rate 16 05/24/2023 1:11 PM EDT Oxygen Saturation 99% 12/23/2021 8:39 AM EDT Inhaled Oxygen Concentration - - Weight 90.5 kg (199 lb 9.6 oz) 07/03/2023 3:10 P M EDT Height 175.3 cm (5' 9 ) 07/03/2023 3:10 PM EDT Body Mass Index 29.48 07/03/2023 3:10 PM EDT Plan of Treatment Health Maintenance Due Date Last Done Comments COLON CANCER SCREENING 11/22/2017 SHINGLES VACCINE (1 of 2) 11/22/2017 Covid-19 Vaccine (4 - 2022-2 4 season) 2023 07/15/2020, 06/17/2020, 06/17/2020 BMI CHECK/ADVISE 02/20/2024 07/03/2023, 05/2023, 01/16/2022, Additional history exists INFLUENZA (Season Ended) 2024 020 (External Completion of Vaccination per patient), 01/14/2019 (External Completion of Vaccination per patient), 11/03/2015 BASELINE HEALTH EXAM 40-64 07/02/202507/02, 01/16/2022, 01/16/2022 (Completed), Additional history exists CHOLESTEROL SCREENING 06/13/2026 06/13/2021 , 09/06/2020, 03/12/2018, Additional history exists DTAP/TDAP/TD (2 - Td or Tdap) 10/04/2027 10/03/2017 PNEUMOCOCCAL VACCINE FOR HIG H RISK PATIENTS (#1) 11/22/2032 Care Teams Landscape Nurseryman Relationship Specialty Start Date End Date Pooja Owen MD [address] [place] [id number] PCP - General Internal Medicine 03/04/21 Stanley Perea Specialist Cardiology 05/24/23
--- OUTSIDE RECORDS SUMMARY | 2024-06-23 16:50 | XMS_ITS | Encounter Summary ---
Author Organization [facility] Address [address] [place] [address] Care Team Providers Care Medical Receptionist Assistant Name Role Phone Pooja Owen MD Primary Care Provider [phone] Encounter Details Date Type Department Care Team Description 05/17/2023 Hospital Medical Records [address] [place] [address] Ruba Davis MD Social History Tobacco Use Types Packs/Day [...] often do you attend chur ch or latter day services? Never 01/16/2022 Do you belong to any clubs o r organizations such as adventism groups, unions, fraternal or athletic groups, or [...] place to sleep or slept in a alf (including now)? No 01/16/2022 Sex Assigned at Date Recorded Not on file Job Start Date Occupation Industry Not on file Not on file Not on file documented as of this encounter Plan of Treatment Not on file documented as of this encounter Visit Diagnoses Not on filedocumented in this encounter Care Teams Medical Receptionist Assistant Relationship Specialty Start Date End Date Pooja Owen MD [facility] [place] [address] PCP - General Internal Medicine 03/04/21 Stanley Perea Specialist Cardiology 05/24/23 documented as of this encounter
--- OUTSIDE RECORDS SUMMARY | 2024-06-23 16:50 | XMS_ITS | Clinical Summary ---
Author Organization [facility] [address] [facility] Address [address] [place] [address] Phone Care Team Providers Care Hospice Clinical Marketer Name Role Phone Pooja Owen MD Primary Care Provider Allergies Active Allergy Reactions Criticality Noted Date Comments Other 06/13/2021 Medications ibuprofen (ADVIL,MOTRIN) 600 mg tablet Take 1 tablet (600 mg total) by mouth 2 (two) times a day if needed. for pain 12/31/2023 Active ibuprofen (ADVIL,MOTRIN) 600 mg tablet TAKE 1 TABLET BY MOUTH TWICE DAILY NEEDED FOR PAIN 30 tablet 03/31/2024 Active Active Problems Problem Noted Date Diagnosed Date Chronic congestive heart failure ([facility] V24, [facility] [place]/[facility] V28) 07/03/2023 Atrial fibrillation ([facility] V24, [facility] V28) 0 07/03/2023 Recurrent low back pain 03/15/2018 Gout with tophi 02/02/2017 Overview (03/12/2024): Recent flare 01/2017 s/p Xray, follows with rheumatology on indomethacin Insomnia 05/23/2016 Non morbid obesity 02/03/2016 Essential hypertension 04/29/2015 Overview (03/12/2024): ASCVD 4.1% Epidermal inclusion cyst 04/26/2015 Overview (03/12/2024): Right side of the neck as per CAT scan Immunizations Name Administration Dates Next Due Influenza trivalent, with pr eservative (Fluzone; Afluria) 6mo and older 11/03/2015 Moderna SARS-CoV-2 COVID-19, mRNA, LNP-S, preservative free 07/15/2020 Tdap Tetanus diptheria acell ular pertussis (Boostrix; Adacel) 7yo and older 10/03/2017 Surgical History Surgery Date Site/Laterality Comments OTHER SURGICAL HISTORY PROCEDURE: DENIES PREVIOUS SURGERY Medical History Medical History Date Comments Epidermal inclusion cyst 04/26/2015 DX:Epid ermal inclusion cyst Essential hypertension 04/29/2015 DX:Essent ial hypertension Gout with tophi 02/02/2017 DX:Gout with top hi; COMMENT: Recent flare 01/2017 s/p Xray, follows with rheumatology on indomethacin Family History Medical History Relation Name Comments [...] drink = 0.6 oz pur e alcohol) Sex and Gender Information Value Date Recorded Sex Assigned at Not on file Legal Sex Male 10:46 PM EST Gender Identity Not on file Sexual Orientation Not on file Obstetrics History Last Filed Vital Signs Vital Sign Reading Time Taken Comments Blood Pressure 112/72 07/03/2023 3:10 PM EDT Pulse 74 07/03/2023 3:10 PM EDT Temperature - - Respiratory Rate - - Oxygen Saturation - - Inhaled Oxygen Concentration - - Weight 90.5 kg (199 lb 9.6 oz) 07/03/2023 3:10 P M EDT Height 175.3 cm (5' 9 ) 07/03/2023 3:10 PM EDT Body Mass Index 29.48 07/03/2023 3:10 PM EDT Plan of Treatment Upcoming Encounters Date Type Department Care Team (Late st Contact Info) Description 07/04/2024 8:45 AM EDT Office Visit Adult Medicine [address] [phone] Alejandro Masterson PA [address] [place] [address] Health Maintenance Due Date Last Done Comments Hepatitis B Vaccines (1 of 3 - 19+ 3-dose series) 11/22/1986 Pneumococcal Vaccine: 50+ Years (1 of 2 - PCV) 11/22/1986 Pneumococcal Vaccine: Pediatrics (0 to 5 Years) and At-Risk Patients (6 to 64 Years) (1 of 2 - PCV) 11/22/1986 Zoster Vaccines (1 of 2) 11/22/2017 Colorectal Cancer Screening: Colonoscopy 01/22/2022 Depression Screening 01/22/2022 Hepatitis C Screening 01/22/2022 Social Influencers of Health Screening 01/22/2022 Hypertension/CHF/CAD Annual BMP Blood Test 06/13/2022 06/13/2021 COVID-19 Vaccine (3 - 2023-2 5 season) 2023 07/15/2020, 06/17/2020 Influenza Vaccine (Season Ended) 2024 11/03/2015 Cholesterol Screening (Lipid Panel) 06/13/2026 06/13/2021 DTaP,Tdap,and Td Vaccines (2 - Td or Tdap) 10/04/2027 10/03/2017 HIV Screening Completed 03/29/2015 HIB Vaccines Aged Out No longer eligi ble based on patient's age to complete this topic HPV Vaccines Aged Out No longer eligi ble based on patient's age to complete this topic Hepatitis A Vaccines Aged Out No long er eligible based on patient's age to complete this topic IPV Vaccines Aged Out No longer eligi ble based on patient's age to complete this topic MMR Vaccines Aged Out No longer eligi ble based on patient's age to complete this topic Meningococcal ACWY Vaccine Aged Out N o longer eligible based on patient's age to complete this topic Meningococcal B Vaccine Aged Out No l onger eligible based on patient's age to complete this topic RSV Immunization Patients Under 20 months Aged Out No longer eligible b ased on patient's age to complete this topic Varicella Vaccines Aged Out No longer eligible based on patient's age to complete this topic Procedures Procedure Name Priority Date/Time Associated Diagnosis Comments ANNUAL BMP BLOOD TEST Routine 06/13/2021 LIPID PANEL Routine 06/13/2021 HIV SCREENING Routine 03/29/2015 from Last 3 Months or Most Recently Relevant to Health Maintenance Results * Annual BMP Blood Test (06/13/2021) Annual BMP Blood Test abstracted [facility] Provider HEALTH MAINTENANCE Final Result * (ABNORMAL) Lipid panel (06/13/2021) Pathologist [facility] Triglycerides 459(A) 0 - 150 mg/dL Cholesterol 177 0 - 200 mg/dL HDL 39(A) >=40 mg/dL LDL Cholesterol 47 0 - 100 mg/dL Blood Venous blood specimen / Unknown [facility] Provider LAB BLOOD ORDERABLES Chelo l Result * HIV Screening (03/29/2015) Pathologist [facility] HIV Screening abstracted [facility] Provider HEALTH MAINTENANCE Final Result from Last 3 Months or Most Recently Relevant to Health Maintenance [place] [address] [address] [place] [address] PUBLIC PLANS Care Teams Hospice Clinical Marketer Relationship Specialty Start Date End Date Pooja Owen MD [address] [place] [phone] PCP - General Internal Medicine 03/04/21
== END 2024-06-23 15:49 | disposition home or self-care (01) ==
LOC: HO.HCS 15:15
PROVIDERS: PCP Family Medicine; Visit Provider Internal Medicine Cardiovascular Disease
DX: I42.9 Cardiomyopathy, unspecified (principal); I48.0 Paroxysmal atrial fibrillation
CPT/HCPCS: 93010; 99214

== ENCOUNTER → 2024-06-23 15:14 | Outpatient (BNVA) | payer OTHER, SELFPAY | PROVIDERS: PCP Family Medicine; Visit Provider Internal Medicine Cardiovascular Disease | DX: I42.9 Cardiomyopathy, unspecified (principal); I48.0 Paroxysmal atrial fibrillation; R94.31 Abnormal electrocardiogram [ECG] [EKG] | CPT/HCPCS: 93005; 99212 ==

== ENCOUNTER → 2024-08-01 08:52 | Outpatient (REF) | payer OTHER, SELFPAY ==
--- NOTE | 2024-08-01 08:58 | CA_ITS ---
Transthoracic Echocardiogram Patient (Last, First, Middle): Jim Fletcher, Gender: Male Date of : 1965 Age: 58 Procedure Date: 08/01/2024 Procedure Type: Transthoracic Echocardiogram Location: OP Height: 175.26 cm Weight: 95.26 kg BSA: 2.11 m2 Heart Rate: bpm BP: 128 / 80 mmHg Stone Polisher: Referring MD: Stanley Perea MD Health Screener: Christopher Mclean MD Symptoms: I42.9 - Cardiomyopathy, unspecified Study Quality: Adequate w Definity ECG Rhythm: Sinus Conclusions: - 1. Normal LV ejection fraction at 60 65% with pseudonormal filling pattern 2. Mildly dilated left atrium 3. Cardiac valvular Dopplers within normal limits 4. Normal measured RV systolic pressure 5. No gross pericardial effusion Findings Procedure Information Contrast agent, definity, is being given per protocol without apparent complications. Left Ventricle Normal left ventricular size, thickness, and systolic function. The visually estimated ejection fraction is between 60-65%. Spectral Doppler is indicative of a pseudonormal filling pattern. E/E prime ratio is between 8 and 15 consistent with indeterminate filling pressures. Right Ventricle Normal right ventricular cavity size and systolic function. Atria The left atrium is mildly dilated. There is no evidence of interatrial shunt. The right atrium is normal in size. Aortic Valve Normal aortic valve structure and function. There is no aortic valve stenosis. There is no aortic valve regurgitation. Mitral Valve There is mild anterior and posterior mitral leaflet thickening. There is trace mitral valve regurgitation. There is no mitral valve stenosis. Pulmonic Valve The pulmonic valve is likely normal. There is trace pulmonic valve regurgitation. Tricuspid Valve Normal tricuspid valve structure. There is trace tricuspid valve regurgitation. The right ventricular systolic pressure is 9 mmHg. Normal right atrial pressure. There is no evidence of pulmonary hypertension. Great Vessels All visible segments of the aorta are normal in size. The pulmonary artery was not well visualized. There is no dilatation of the ascending aorta measuring 3.20 cm. Venous The inferior vena cava is normal in size and collapses greater than 50% with inspiration. Pericardium/Pleural There is no evidence of pericardial effusion. Prior Study Comparison Changes noted compared to prior study dated: 11/30/2023. LV systolic function seems to have normalized Measurements 2D Linear Measurements IVSd: 1.11 0.6-0.9/0.6-1.0 cm LVIDd: 5.01 3.9-5.3/4.2-5.9 cm LVIDd Index: 2.37 2.4-3.2/2.2-3.1 cm/m2 LVIDs: 2.99 2.0-3.6 cm LVPWd: 1.15 0.7-1.1 cm Ao Root: 3.50 2.1-3.5 cm LA Diam: 3.50 2.7-3.8/3.0-4.0 cm LAIDs Index: 1.66 1.5-2.3 cm/m2 LV Mass: 268.83 67-162/88-224 g LV Mass Index: 127.41 43-95/49-115 g/m2 LVOT Diam: 2.40 3.0+(-)1.3 cm 2D Systolic Function EF 4C: 61.00 >55% Mitral Valve MV Pk E: 0.99 MV PK A: 0.87 MV Decel Time: 248.00 E/A: 1.10 E'Lateral: 9.68 E'Medial: 7.51 E/E' Med: 13.10 E/E' Lat: 10.20 PHT: 73.00 MVA PHT: 3.01 Decel Solano: 3.98 Aortic Valve AoV Pk Carlos: 1.45 AoV Mn Carlos: 0.89 AoV VTI: 0.35 AoV Pk Grad: 8.00 Aov Mn Grad: 4.00 SARIAH Cont.VTI: 2.94 LVOT LVOT Pk Carlos: 0.91 LVOT Mn Carlos: 0.61 LVOT VTI: 0.23 LVOT Pk Grad: 3.00 LVOT Mn Grad: 2.00 LVOT Diam: 2.40 LVOT Area: 4.52 Diastolic Function MV Pk E: 0.99 MV Pk A: 0.87 E/A: 1.10 E'Medial: 7.51 E/E' Med: 13.10 E' Laterial: 9.68 E/E' Lat: 10.20 Right Ventricle TAPSE (mm): 29.00 TVS' Carlos: 13.00 Tricuspid Valve TR Pk Carlos: 1.18 TR Pk Grad: 6.00 RA Press: 3.00 RVSP: 9.00 Great Vessels Aorta Ao Root-2D: 3.50 2.0-3.7 cm Ao Asc: 3.20 2.1-3.4 cm Pulmonary Valve PV Pk Carlos: 0.99 Peak PV Grad: 4.00 Updated in Other Vendor System with Status of Final Christopher Mclean MD electronically signed on 08/02/2024 11:28:27 AM with status of Final
--- OUTSIDE RECORDS SUMMARY | 2024-08-01 09:12 | XMS_ITS | Clinical Summary ---
Author Organization [facility] Address [address] [place] [address] Phone Care Team Providers Care Cotton Presser Name Role Phone Pooja Owen MD Primary Care Provider Allergies Active Allergy Reactions Criticality Noted Date Comments Other 06/13/2021 Medications Entresto 49-51 mg per tablet Take 1 tablet by mouth 2 (two) times a day. 06/14/19 25 Active metoprolol succinate (TOPROL-XL) 25 mg 24 hr tablet Take 0.5 tablets (12.5 mg total) by mouth. 05/24/19 24 Active furosemide (LASIX) 20 mg tablet Take 1 tablet (20 mg total) by mouth. 05/24/19 24 Active Jardiance 10 mg tablet Take 1 tablet (10 mg total) by mouth. 05/24/19 24 Active cyanocobalamin (VITAMIN B-12) 1,000 mcg tablet Take 1 tablet (1,000 mcg total) by mouth 1 (one) time each day. Active Eliquis 5 mg tablet Take 1 tablet (5 mg total) by mouth. 05/24/19 24 Active spironolactone (ALDACTONE) 25 mg tablet Take 1 tablet (25 mg total) by mouth. 1/2 tablet daily Active multivitamin (MULTI-DAY ORAL) Take by mouth. Active vit B complex no.12/niacin,B 3, (VITAMIN B COMPLEX NO.12-NIACIN ORAL) Take by mouth. Active icxw-vsmq-ydk- xuw-eko-ylxz-h or [phone] 5 mg tablet Take by mouth. Active ibuprofen (ADVIL,MOTRIN) 600 mg tabletIndicati ons:Recurrent low back pain Take 1 tablet (600 mg total) by mouth 2 (two) times a day if needed for moderate pain. for pain 90 tablet 1 07/05/19 25 025 Active flecainide (TAMBOCOR) 50 mg tablet Take 1 tablet (50 mg total) by mouth every 12 (twelve) hours. Active ibuprofen (ADVIL,MOTRIN) 600 mg tablet Take 1 tablet (600 mg total) by mouth 2 (two) times a day if needed. for pain 12/31/19 24 025 Discontinued(Du plicate order) ibuprofen (ADVIL,MOTRIN) 600 mg tablet TAKE 1 TABLET BY MOUTH TWICE DAILY NEEDED FOR PAIN 30 tablet 03/31/19 025 Discontinued(Re order) amiodarone (PACERONE) 200 mg tablet Take 1 tablet (200 mg total) by mouth 1 (one) time each day. 025 Discontinued Active Problems Problem Noted Date Diagnosed Date Chronic congestive heart failure ([facility] V24, [facility] V28) 07/03/2023 Atrial fibrillation (CMS/HCC V24, [facility] V28) 0 07/03/2023 Recurrent low back pain 03/15/2018 Gout with tophi 02/02/2017 Overview (03/12/2024): Recent flare 01/2017 s/p Xray, follows with rheumatology on indomethacin Insomnia 05/23/2016 Non morbid obesity 02/03/2016 Essential hypertension 04/29/2015 Overview (03/12/2024): ASCVD 4.1% Epidermal inclusion cyst 04/26/2015 Overview (03/12/2024): Right side of the neck as per CAT scan Encounters Date Type Department Care Team Description 07/29/2024 Telephone Adult Medicine [address] [address] Irena Orozco [place] 07/04/2024 8:45 AM EDT Office Visit Adult Medicine - [address] [place] [address] Alejandro Masterson PA Atrial fibrillation, unspecified type (CMS/HCC V24, [facility] V28) (Primary Dx); Chronic congestive heart failure, unspecified heart failure type ([facility] V24, [facility] V28); Essential hypertension; Recurrent low back pain; Screen for colon cancer; Seasonal allergic rhinitis, unspecified trigger from Last 3 Months Immunizations Name Administration Dates Next Due Influenza [...] Sign Reading Time Taken Comments Blood Pressure 117/60 07/04/2024 8:47 AM EDT Pulse 51 07/04/2024 8:47 AM EDT Temperature 36.3 ??C (97.3 ??F) 07/04/2024 8:47 AM ED T Respiratory Rate - - Oxygen Saturation - - Inhaled Oxygen Concentration - - Weight 93.4 kg (206 lb) 07/04/2024 8:47 AM EDT Height 175.3 cm (5' 9 ) 07/04/2024 8:47 AM EDT Body Mass Index 30.42 07/04/2024 8:47 AM EDT Plan of Treatment Upcoming Encounters Date Type Department Care Team (Late st Contact Info) Description 01/09/2025 10:00 AM EST Office Visit Adult Medicine - [place] [address] [place] [address] Alejandro Masterson PA [address] [place] [address] Health Maintenance Due Date Last Done Comments Hepatitis B Vaccines (1 of 3 - 19+ 3-dose series) 11/22/1986 Pneumococcal Vaccine: 50+ Years (1 of 2 - PCV) 11/22/1986 Pneumococcal Vaccine: Pediatrics (0 to 5 Years) and At-Risk Patients (6 to 64 Years) (1 of 2 - PCV) 11/22/1986 Zoster Vaccines (1 of 2) 11/22/2017 Depression Screening 01/22/2022 Hepatitis C Screening 01/22/2022 Social Influencers of Health Screening 01/22/2022 Hypertension/CHF/CAD Annual BMP Blood Test 06/13/2022 06/13/2021 COVID-19 Vaccine (2023-2 5 season) 2023 02/03/2021, 07/15/2020, 06/17/2020 Influenza Vaccine (Season Ended) 2024 11/03/2015 Cholesterol Screening (Lipid Panel) 06/13/2026 06/13/2021 Colorectal Cancer Screening: FIT-DNA (Cologuard) 07/21/2027 07/20/2024 DTaP,Tdap,and Td Vaccines (2 - Td or [...] Procedure Name Priority Date/Time Associated Diagnosis Comments LAB COLOGUARD?? COLON CANCER SCREEN Routine 07/20/2024 7:54 AM EDT Screen for colon cancer ANNUAL BMP BLOOD TEST Routine 06/13/2021 LIPID PANEL Routine 06/13/2021 HIV SCREENING Routine 03/29/2015 from Last 3 Months or Most Recently Relevant to Health Maintenance Results * Cologuard?? colon cancer screening (07/20/2024 7:54 AM EDT) COLOGUARD Negative Negative [facility] Comment: The Cologuard (TM) test was performed on this specimen. NEGATIVE TEST RESULT. A negative Cologuard result indicates a low likelihood that a colorectal cancer (CRC) or advanced adenoma (adenomatous polyps with more advanced pre-malignant features) is present. The chance that a person with a negative Cologuard test has a colorectal cancer is less than 1 in 1500 (negative predictive value >99.9%) or has an advanced adenoma is less than 5.3% (negative predictive value 94.7%). These data are based on a prospective cross-sectional study of 10,000 individuals at average risk for colorectal cancer who were screened with both Cologuard and colonoscopy. (Jarrod Fatima al, N Engl J Med 2014;370(14):1286- 1297) The normal value (reference range) for this assay is negative. COLOGUARD RE-SCREENING RECOMMENDATION: Periodic colorectal cancer screening is an important part of preventive healthcare for asymptomatic individuals at average risk for colorectal cancer. Following a negative Cologuard result, the [place] [employer] and U.S. Multi-Society Task Force screening guidelines recommend a Cologuard re-screening interval of 3 years. References: [place] [employer] Guideline for Colorectal Cancer Screening: https://www.cancer.org/cancer/zbjhl-esysmg-hnrqkt/yttmtumqk-cgfglthzs-cqzckvy/ac s-rec ommendations.html.; Mitchel DK, Mini JESSICA, Brittney FuentesK, Colorectal Cancer Screening: Recommendations for Physicians and Patients from the U.S. Multi-Society Task Force on Colorectal Cancer Screening , Am J Gastroenterology 2017; 112:8387-4506. TEST DESCRIPTION: Composite algorithmic analysis of stool DNA-biomarkers with hemoglobin immunoassay. ?? Quantitative values of individual biomarkers are not reportable and are not associated with individual biomarker result reference ranges. Cologuard is intended for colorectal cancer screening of adults of either sex, 45 years or older, who are at average-risk for colorectal cancer (CRC). Cologuard has been approved for use by the U.S. FDA. The performance of Cologuard was established in a cross sectional study of average-risk adults aged 50-84. Cologuard performance in patients ages 45 to 49 years was estimated by sub-group analysis of near-age groups. Colonoscopies performed for a positive result may find as the most clinically significant lesion: colorectal cancer [4.0%], advanced adenoma (including sessile serrated polyps greater than or equal to 1cm diameter) [20%] or non- advanced adenoma [31%]; or no colorectal neoplasia [45%]. These estimates are derived from a prospective cross-sectional screening study of 10,000 individuals at average risk for colorectal cancer who were screened with both Cologuard and colonoscopy. (Jarrod Garcia et al, N Engl J Med 2014;370(14):4877-1268.) Cologuard may produce a false negative or false positive result (no colorectal cancer or precancerous polyp present at colonoscopy follow up). A negative Cologuard test result does not guarantee the absence of CRC or advanced adenoma (pre-cancer). The current Cologuard screening interval is every 3 years. ([place] [employer] and U.S. Multi-Society Task Force). Cologuard performance data in a 10,000 patient pivotal study using colonoscopy as the reference method can be accessed at the following location: www.[employer]/results. Additional description of the Cologuard test process, warnings and precautions can be found at www.cologuard.com. Stool 07/20/2024 7:54 AM EDT 07/22/2024 12:48 PM EDT [facility] ORD ERABLES Final Result [facility] [address] [place] [address] [facility] [address] [place] [address] * Annual BMP Blood Test (06/13/2021) [facility] Annual BMP Blood Test abstracted Result [facility] Historical Provider HEALTH MAINTENANCE Final Result * (ABNORMAL) Lipid panel (06/13/2021) [facility] Triglycerides 459(A) 0 - 150 mg/dL Cholesterol 177 0 - 200 mg/dL HDL 39(A) >=40 mg/dL LDL Cholesterol 47 0 - 100 mg/dL Blood Venous blood specimen / Unknown Result [facility] Historical Provider LAB BLOOD ORDERABLES Chel[facility] l Result * HIV Screening (03/29/2015) [facility] HIV Screening abstracted Result [facility] Historical Provider HEALTH MAINTENANCE Final Result from Last 3 Months or Most Recently Relevant to Health Maintenance Insurance [facility] Care Teams Cotton Presser Relationship Specialty Start Date End Date Pooja Owen MD [address] [place] [id number] PCP - General Internal Medicine 03/04/21
== END ==
LOC: HO.CARD 08:52
PROVIDERS: Visit Provider Internal Medicine Cardiovascular Disease
DX: I42.9 Cardiomyopathy, unspecified (principal)
CPT/HCPCS: 93306; Q9957

== ENCOUNTER → 2024-08-01 08:58 | Outpatient (BNV) | payer OTHER, SELFPAY | PROVIDERS: Visit Provider Internal Medicine Cardiovascular Disease | DX: I42.9 Cardiomyopathy, unspecified (principal) | CPT/HCPCS: 93306 ==

== ENCOUNTER 2024-11-28 13:20 | Outpatient (AMB) | payer OTHER, SELFPAY ==
[2024-11-28 13:24] VITALS: BP 122/60; PULSE 67; BMI 30.5
--- NOTE | 2024-11-28 13:24 | MHC.OFFVIS ---
Vital Signs 11/28/24 13:24 Height 5 ft 9 in Weight 206 lb 12.697 oz BMI 30.5 BP 122/60 Blood Pressure Location Rt brachial Position Sitting Pulse 67 Pulse Source Monitor Intake Visit Reasons: r/s-4m follow up Social Media Content Specialist Required: No Accompanied by: Significant Other Allergies No Known Allergies Allergy (Verified 11/28/24 13:27) Medication List - Last Reconciled 11/28/24 by Jessica Chanel NP-C apixaban (Eliquis) 5 mg PO BID coenzyme Q10 (CoQ-10) 200 mg PO DAILY cyanocobalamin (vitamin B-12) 1,000 mcg PO DAILY empagliflozin (Jardiance) 10 mg PO DAILY flecainide 50 mg PO Q12H furosemide 20 mg PO DAILY metoprolol succinate ER 25 mg PO DAILY multivitamin 1 tab PO DAILY sacubitril-valsartan 49-51 mg 1 tab PO BID spironolactone 12.5 mg (1/2 x 25 mg) PO DAILY HPI HPI r/s-4m follow up: Details: Jim is a 59-year-old male with newer atrial fibrillation (04/2023) with tachycardia induced cardiomyopathy, 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 Today he reports that he has been feeling very well with no concerning symptoms. Denies chest discomfort, heart palpitations, shortness of breath, edema. No lightheadedness, presyncope, syncope, falls. No PND, orthopnea. 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 Taking medications as directed. No bleeding issues reported. He is still not interested in ablation as he read some things about it and the procedure worries him. Significant other is present. [facility] Medical History History of cardioversion HTN (hypertension) Social History Household Members: Spouse Housing: House Do you presently have visiting nurse or other home services: No Alcohol intake: current Alcohol intake frequency: 3 or more drinks per day Alcohol type: beer Patient Tobacco Use Status: Never used Tobacco service: No Review of Systems Const All systems reviewed & are unremarkable except as noted in HPI and below Denies daytime sleepiness, Denies difficulty sleeping, Denies snoring, Denies stops breathing during sleep and Denies weakness Card Denies chest pain, Denies rapid heart rate, Denies irregular heart rhythm, Denies claudication, Denies leg edema, Denies lightheadedness, Denies palpitations, Denies dyspnea, Denies dyspnea on exertion, Denies orthopnea, Denies paroxysmal nocturnal dyspnea and Denies slow heart rate Resp Denies cough, Denies dyspnea, Denies dyspnea on exertion and Denies snoring GI Reports no additional complaints, Denies hematochezia, Denies change in stool character and Denies dyspepsia Musc Denies abnormal gait, Denies muscle weakness and Denies numbness Neuro Denies abnormal gait, Denies numbness and Denies weakness Endo Denies palpitations Physical Exam Vital Signs: Last Vital Signs Pulse 67 11/28/24 13:24 BP 122/60 11/28/24 13:24 BMI result Body Mass Index 30.5 Const General: cooperative, healthy appearing, comfortable and no acute distress Orientation/consciousness: patient oriented x3 Neck Neck: Yes normal visual inspection Resp Effort & Inspection: normal respiratory effort Auscultation: clear to auscultation bilaterally, no crackles, no rales, no rhonchi and no wheezes Cardio Rate: regular rate Rhythm: regular rhythm Heart sounds: S1 normal heart sound present, S2 normal heart sound present, no gallops, no murmurs and no rubs Neuro General: patient oriented x3 Extrem General: Yes normal to inspection, No no pedal edema and No calf tenderness Psych Appearance: grossly normal Mental Status: mental status grossly normal Speech and movement: Normal speech and movement present Office Procedures EKG Details: Today, read by me, normal sinus rhythm, ST and T-wave abnormality leads 3, AVF and V6, unchanged from prior EKG, rate 67, QTC 422 milliseconds [id number], Complete Assessment & Plan Assessment & Plan (1) Atrial fibrillation with RVR: Code(s): I48.91 - Unspecified atrial fibrillation Category: Medical Plan: New finding of AFib RVR at ER visit 05/13/2023. He presented with shortness of breath and was found to have AFib RVR and mild Congestive heart failure. Echocardiogram showed significantly reduced EF. Cardioversion was attempted x2 without success. He continued in atrial fibrillation and was started on an amiodarone and Eliquis for anticoagulation. Repeat cardioversion which was done on 06/08/2023 with successful conversion to normal sinus rhythm. He has had no known recurrent AFib since that time. Declined ablation and his amiodarone was transitioned over to flecainide. EKG today showing normal sinus rhythm, rate 67. CHADS-VASc score is 1 with CHF. Continue flecainide 50 mg b.i.d. and metoprolol XL 25 mg daily for rhythm and rate control. Continue Eliquis 5 mg b.i.d. for anticoagulation. Cardiology follow-up 6 months, sooner if needed. (2) Cardiomyopathy: Code(s): I42.9 - Cardiomyopathy, unspecified Category: Medical Plan: Tachycardia mediated cardiomyopathy, 04/2023 with EF 15-20%. For heart failure management he was put on Entresto, metoprolol, Aldactone, Jardiance. He remains on low-dose Lasix at this time. His AFib was treated with rhythm control as above. A Nuclear stress test done 08/13/2023 showed normal myocardial perfusion imaging. Echocardiogram done 08/01/2024 now shows EF 60-65%, mildly dilated left atrium, normal valves. He is due for repeat labs. Continue current med management without change. Signs and symptoms of heart failure reviewed with him. (3) Acute HFrEF (heart failure with reduced ejection fraction): Code(s): I50.21 - Acute systolic (congestive) heart failure Category: Medical Plan: As above. He does not appear fluid overloaded on examination. He tells me his breathing is normal. (4) Abnormal EKG: Code(s): R94.31 - Abnormal electrocardiogram [ECG] [EKG] Category: Medical Plan: EKG today is showing nonspecific ST and T-wave abnormalities, inferior lateral leads, same as last EKG. Prior Nuclear stress test was normal. He currently offers no concerning symptoms. Plan Time spent on chart review, documentation, interview and assessment Orders: Orders Complete Blood Count Auto Diff Today I42.9 - Cardiomyopathy, unspecified, I50.21 - Acute systolic (congestive) heart failure Comprehensive Met. Panel Today I42.9 - Cardiomyopathy, unspecified, I50.21 - Acute systolic (congestive) heart failure Scribe Plan - Not visible on output: Time spent on chart review, documentation, interview and assessment Coding Level of Care Code Est Pt Level 4 (00197) Complex EM visit Add On G2211 Diagnoses Atrial fibrillation with RVR I48.91 Cardiomyopathy I42.9 Acute HFrEF (heart failure with reduced ejection fraction) I50.21 Abnormal EKG R94.31 CPT Codes EKG - CPT: [id number], Complete ([id number]) Time Spent (min) 28
== END 2024-11-28 13:56 | disposition home or self-care (01) ==
LOC: HO.HCS 13:21
PROVIDERS: Visit Provider Nurse Practitioner Family
DX: I48.91 Unspecified atrial fibrillation (principal); I42.9 Cardiomyopathy, unspecified; I50.21 Acute systolic (congestive) heart failure; R94.31 Abnormal electrocardiogram [ECG] [EKG]
CPT/HCPCS: 93010; 99214

== ENCOUNTER → 2024-11-28 13:20 | Outpatient (BNVA) | payer OTHER, SELFPAY | PROVIDERS: Visit Provider Nurse Practitioner Family | DX: I50.21 Acute systolic (congestive) heart failure (principal); I48.91 Unspecified atrial fibrillation; I42.9 Cardiomyopathy, unspecified | CPT/HCPCS: 93005; 99212 ==

== ENCOUNTER 2024-12-05 15:50 | Outpatient (REF) | payer OTHER, SELFPAY ==
[2024-12-05 16:05] LABS: MANUAL DIFF FLAG NO
[2024-12-05 17:26] LABS: Hematocrit 46.1 % (42.0-52.0); Hemoglobin 16.0 g/dl (14.0-18.0); Imm Gran Abs Auto 0.02 X10*3/uL (0.00-0.03); Imm Gran Pct Auto 0.3 % (0.0-0.4); Lymphocytes Absolute Auto 1.5 X10*3/uL (1.2-4.9); Mean Corpuscular HGB Conc 34.7 g/dl (31.0-36.0); Mean Corpuscular Hemoglobin 29.4 pg (27.0-33.0); Mean Corpuscular Volume 84.6 fL (80.0-98.0); NRBC Abs Auto 0.000 X10*3/uL (0.0-0.012); NRBC Pct Auto 0.0 /100WBC (0.0-0.2); Platelet Count 251 X10*3/uL (160-400); Red Blood Count 5.45 X10*6/uL (4.60-5.80); White Blood Count 6.4 X10*3/uL (4.8-10.8)
[2024-12-05 18:00] LABS: Alanine Aminotransferase 51 U/L (0-40); Albumin Level 4.9 g/dL (3.5-5.0); Alkaline Phosphatase 64 U/L (39-117); Anion Gap 14 (12-20); Aspartate Amino Transferase 41 U/L (5-37); Blood Urea Nitrogen 15 mg/dL (9-16); Calcium 10.0 mg/dL (8.4-10.2); Carbon Dioxide 25 mmol/L (22-29); Chloride 105 mmol/L (96-108); Estimated Glomerular Filt Rate > 60; Potassium 4.1 mmol/L (3.3-5.1); Sodium 140 mmol/L (135-145); Total Protein 7.9 g/dL (6.5-8.0)
--- OUTSIDE RECORDS SUMMARY | 2024-12-05 18:12 | XMS_ITS | Clinical Summary ---
Author Organization [facility] [address] [facility] Address [address] [place] [address] Phone Care Team Providers Care Mental Measurements Teacher Name Role Phone Pooja Owen MD Primary Care Provider Allergies No known active allergies Medications Entresto 49-51 mg per tablet Take 1 tablet by mouth 2 (two) times a day. 5 Active metoprolol succinate (TOPROL-XL) 25 mg 24 hr tablet Take 0.5 tablets (12.5 mg total) by mouth. 4 Active furosemide (LASIX) 20 mg tablet Take 1 tablet (20 mg total) by mouth. 4 Active Jardiance 10 mg tablet Take 1 tablet (10 mg total) by mouth. 4 Active cyanocobalamin (VITAMIN B-12) 1,000 mcg tablet Take 1 tablet (1,000 mcg total) by mouth 1 (one) time each day. Active Eliquis 5 mg tablet Take 1 tablet (5 mg total) by mouth. 4 Active spironolactone (ALDACTONE) 25 mg tablet Take 1 tablet (25 mg total) by mouth. 1/2 tablet daily Active multivitamin (MULTI-DAY ORAL) Take by mouth. Active vit B complex no.12/niacin,B 3, (VITAMIN B COMPLEX NO.12-NIACIN ORAL) Take by mouth. Active deul-hozu-kny- kxr-ghj-vitc-h or [id number] 5 mg tablet Take by mouth. Active flecainide (TAMBOCOR) 50 mg tablet Take 1 tablet (50 mg total) by mouth every 12 (twelve) hours. Active coenzyme Q-10 30 mg capsule Take 1 capsule (30 mg total) by mouth 1 (one) time each day. Active cyclobenzaprin e (FLEXERIL) 5 mg tabletIndicati ons:Neck pain, chronic Take 1 tablet (5 mg total) by mouth 3 (three) times a day if needed for muscle spasms. 30 tablet 5 Active ibuprofen (ADVIL,MOTRIN) 600 mg tabletIndicati ons:Recurrent low back pain TAKE 1 TABLET(600 MG) BY MOUTH TWICE DAILY NEEDED FOR MODERATE PAIN OR PAIN 90 tablet 5 Active ibuprofen (ADVIL,MOTRIN) 600 mg tabletIndicati ons:Recurrent low back pain TAKE 1 TABLET(600 MG) BY MOUTH TWICE DAILY NEEDED FOR MODERATE PAIN OR PAIN 90 tablet 5 025 Discontinued Active Problems Problem Noted Date Diagnosed Date Chronic congestive heart failure ([facility] V24, [facility] V28) 07/03/2023 Atrial fibrillation ([facility] V24, [facility] V28) 0 07/03/2023 Recurrent low back pain 03/15/2018 Gout with 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/02/2017 Overview (03/12/2024): Recent flare 01/2017 s/p Xray, follows with rheumatology on indomethacin Insomnia 05/23/2016 Non morbid obesity 02/03/2016 Essential hypertension 04/29/2015 Overview (03/12/2024): ASCVD 4.1% Epidermal inclusion cyst 04/26/2015 Overview (03/12/2024): Right side of the neck as per CAT scan Encounters Date Type Department Care Team Description 10/10/2024 10:30 AM EDT Office Visit Adult Medicine [address] [phone] Liana Godinez NP Neck pain, chronic (Primary Dx); Wart of hand from Last 3 Months Immunizations Immunization Administration Dates Next Due Influenza trivalent, with [...] Sign Reading Time Taken Comments Blood Pressure 118/60 10/10/2024 10:21 AM EDT Pulse 62 10/10/2024 10:21 AM EDT Temperature 36.6 C (97.9 F) 10/10/2024 10:21 AM EDT Respiratory Rate - - Oxygen Saturation - - Inhaled Oxygen Concentration - - Weight 95.7 kg (211 lb) 10/10/2024 10:21 AM EDT Height 175.3 cm (5' 9 ) 10/10/2024 10:21 AM EDT Body Mass Index 31.16 10/10/2024 10:21 AM EDT Plan of Treatment Upcoming Encounters Date Type Department Care Team (Late st Contact Info) Description 01/09/2025 10:00 AM EST Office Visit Adult Medicine [address] [phone] Alejandro Masterson PA [address] [place] [phone] Health Maintenance Due Date Last Done Comments Hepatitis B Vaccines (1 of 3 - 19+ 3-dose series) 11/22/1986 Pneumococcal Vaccine: 50+ Years (1 of 2 - PCV) 11/22/1986 RSV Immunization Adult Patients (1 - Risk 50-74 years 1-dose series) 11/22/2017 Zoster Vaccines (1 of 2) 11/22/2017 Hepatitis C Screening 01/22/2022 Social Influencers of Health Screening 01/22/2022 Hypertension/CHF/CAD Annual BMP Blood Test 06/13/2022 06/13/2021 Depression Screening 02/20/2024 COVID-19 Vaccine (4 - 2024-2 6 season) 2024 02/03/2021, 07/15/2020, 06/17/2020 Influenza Vaccine (#1) 2024 11/03/2015 Cholesterol Screening (Lipid Panel) 06/13/2026 06/13/2021 Colorectal Cancer Screening: FIT-DNA (Cologuard) 07/21/2027 07/20/2024, 07/20/2024, 07/20/2024 DTaP,Tdap,and Td Vaccines (2 - Td [...] Name Priority Date/Time Associated Diagnosis Comments LAB COLOGUARD COLON CANCER SCREEN Routine 07/20/2024 7:54 AM EDT Screen for colon cancer ANNUAL BMP BLOOD TEST Routine 06/13/2021 LIPID PANEL Routine 06/13/2021 HIV SCREENING Routine 03/29/2015 from Last 3 Months or Most Recently Relevant to Health Maintenance Results * Cologuard?? colon cancer screening (07/20/2024 7:54 AM EDT) COLOGUARD Negative Negative [employer] Comment: The Cologuard (TM) test was [...] Garcia et al, N Engl J Med 2014;370(14):1286- 1297) The normal value (reference range) for this assay is negative. COLOGUARD RE-SCREENING RECOMMENDATION: Periodic colorectal cancer screening is an important part of preventive healthcare for asymptomatic individuals at average risk for colorectal cancer. Following a negative Cologuard result, the [employer] Cancer Society and U.S. Multi-Society Task Force screening guidelines recommend a Cologuard re-screening interval of 3 years. References: English Cancer Society Guideline for Colorectal Cancer Screening: https://www.cancer.org/cancer/hsuxl-uldtiw-hxtnrr/bqulibcld-jezsedndu-lnonxbm/ac s-rec ommendations.html.; Mitchel DK, Mini CR, Brittney HEALY, Colorectal Cancer Screening: Recommendations for Physicians and Patients from the U.S. Multi-Society Task Force on Colorectal Cancer Screening , Am J Gastroenterology 2017; 112:8128-8227. TEST DESCRIPTION: Composite algorithmic analysis of stool DNA-biomarkers with hemoglobin immunoassay. Quantitative values of individual biomarkers are not [...] screened with both Cologuard and colonoscopy. (Jarrod Richardson. et al, N Engl J Med 2014;370(14):0123-9488.) Cologuard may produce a false negative or false positive result (no colorectal cancer or precancerous polyp present at colonoscopy follow up). A negative Cologuard test result does not guarantee the absence of CRC or advanced adenoma (pre-cancer). The current Cologuard screening interval is every 3 years. ([employer] Cancer Society and U.S. Multi-Society Task Force). Cologuard performance data in a 10,000 patient pivotal study using colonoscopy as the reference method can be accessed at the following location: www.[employer]Twonq/results. Additional description of the Cologuard test process, warnings and precautions can be found at www.[email or web address].[email or web address]. Stool 07/20/2024 7:54 AM EDT 07/22/2024 12:48 PM EDT [facility] ORD ERABLES Final Result [employer] [facility] [address] [place] [address] [facility] [address] [place] [address] * Annual BMP Blood Test (06/13/2021) [facility] Annual BMP Blood Test abstracted Result [facility] Historical Provider HEALTH MAINTENANCE Final Result * (ABNORMAL) Lipid panel (06/13/2021) [facility] Triglycerides 459(A) 0 - 150 mg/dL Cholesterol 177 0 - 200 mg/dL HDL 39(A) >=40 mg/dL LDL Cholesterol 47 0 - 100 mg/dL Blood Venous blood specimen / Unknown Result [facility] Provider LAB BLOOD ORDERABLES Chelo l Result * HIV Screening (03/29/2015) [facility] HIV Screening abstracted Historical Provider HEALTH MAINTENANCE Final Result from Last 3 Months or Most Recently Relevant to Health Maintenance Insurance [facility] PUBLIC PLANS [place] [id number] Care Teams Mental Measurements Teacher Relationship Specialty Start Date End Date Pooja Owen MD [address] [place] [phone] PCP - General Internal Medicine 03/04/21
== END 2024-12-05 15:51 | disposition home or self-care (01) ==
LOC: HO.LAB 15:50
PROVIDERS: PCP Internal Medicine Cardiovascular Disease; Visit Provider Nurse Practitioner Family
DX: I42.9 Cardiomyopathy, unspecified (principal); I50.21 Acute systolic (congestive) heart failure
CPT/HCPCS: 36415; 80053; 85025